=== PATIENT | female | born 1985 | race Caucasian/White ===

== ENCOUNTER 2018-06-28 08:33 | Emergency (ER) | payer SELFPAY ==
[~2018-06-28] VITALS: Ht 177.8 cm; Wt 79.4 kg
--- OUTSIDE RECORDS SUMMARY | ~2018-06-28 | XMS | Encounter Summary ---
Demographics + + + | Address | [address] | | | [address] | | | [place] [address] | + + + | Home Phone | | + + + | Preferred Language | Unknown | + + + | Marital Status | Unmarried Domestic Partner | + + + | Anabaptist Affiliation | NON | + + + | Race | White | + + + | Ethnic Group | Not or | + + + Author + + + | Author | [facility] [employer] [facility] | + + + | Organization | [facility] [employer] [facility] | + + + | Address | Unknown | + + + | Phone | Unavailable | + + + Support + + +---------+ + | Name | Relationship | Address | Phone | + + +---------+ + | Roque Headings | ECON | Unknown | | + + +---------+ + Care Team Providers + +------+ + | Care Dental Service Technician Name | Role | Phone | + +------+ + | No Pcp Per Patient | PCP | Unavailable | + +------+ + Reason for Visit Consultation (Routine) +--------+--------+ + + + + | Status | Reason | Specialty | Diagnoses / | Referred By | Referred To | | | | | Procedures | Contact | Contact | +--------+--------+ + + + + | Closed | | Occupational | Diagnoses | Sothern, | [facility] | | | | Therapy | TFCC | KISHA Bergeron | [address] | | | | | (triangular | [address] | [address] | | | | | fibrocartila | Ave | Mailcode: | | | | | ge complex) | [place], [place] | [facility] | | | | | tear, | [address] | for Health | | | | | unspecified | Phone: | and Healing, | | | | | laterality, | [phone] | 1st floor | | | | | subsequent | Fax: | [place], [place] | | | | | encounter | [phone] | [address] | | | | | Procedures | | Phone: | | | | | OCC HAND | | [phone] | | | | | THERAPY | | Fax: | | | | | REFERRAL IN | | [phone] | | | | | [facility] | | | +--------+--------+ + + + + Encounter Details +--------+---------+ + + + | Date | Type | Department | Care Team | Description | +--------+---------+ + + + | 04/01/ | Office | [facility] | Mirna Stevenson | Injury of triangular | | 2015 | Visit | Occupational Therapy | RYAN Gaytan [address] | fibrocartilage | | | | Services at [facility] | [address] | complex of left | | | | [facility] [address] | [place], [place] | wrist (Primary Dx) | | | | [address] Mailcode: | [address] | | | | | [address] for | | | | | | Health and Healing, | | | | | | 1st Floor [place], | | | | | | [place] [address] | | | | | | [phone] | | | +--------+---------+ + + + Social History + + + +--------+ + | Tobacco Use | Types | Packs/Day | Years | Date | | | | | Used | | + + + +--------+ + | Former Smoker | Cigarettes | 0.3 | 3 | Quit: 2008 | + + + +--------+ + + +---+---+---+ | Smokeless Tobacco: | | | | | Never Used | | | | + +---+---+---+ + + +---------+ + | Alcohol Use | Drinks/Week | oz/Week | Comments | + + +---------+ + | Yes | | | rare, on occasion | + + +---------+ + + + + | Sex Assigned at | Date Recorded | | | | + + + | Not on file | | + + + + + + + | Job Start Date | Occupation | Industry | + + + + | Not on file | Not on file | Not on file | + + + + + + + + | Travel History | Travel Start | Travel End | + + + + + + | No recent travel history available. | + + documented as of this encounter Patient Instructions Patient Instructions Mirna Stevenson, RYAN - 04/01/2014 10:39 AM PSTReturn to wearing Br shakir for sleeping. If aching not significantly better in 2-3 days. Add some day wear with brace also. When doing things around the house, going out. Etc. Of f when quiet, resting. Use your microwave pack for heat. Electronically signed by Mirna Stevenson OT at 2014 10:43 AM PST documented in this encounter Progress Notes Mirna Stevenson, RYAN - 04/01/2014 10:16 AM [id number] EMMA MOSQUEDA Date of : 1985 Start of care: 03/24/2014 Date of onset: 02/13/2014 Attending Surgeon: Christopher Benitez M.D. High Density Press Laborer(s): Eliseo Gil M.D. Preoperative Diagnosis(es): Left wrist pain and triangular fibrocartilaginous complex (TFCC ) injury Postoperative Diagnosis(es): Same Procedures Performed: 1. Left wrist arthroscopy, and debridement 2. Left triangular fibrocartilaginous complex (TFCC) arthroscopic repair. 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 (in the wrist) Also reports continued pain in lateral elbow, with popping when performing elbow flexion/ex t. Pain level 4/10. Objective: Elbow: (L) 3-145 degrees Reports occasional "catching at back of joint of elbow with fle ixon/ext, but not actively doing during session today. Has a red area (mild skin breakdown) at lateral elbow. And swollen and tender in this area as well, probably from cast. Pronation: 60 degrees Supination; 30 Wrist flexion: 30 Wrist ext: 38 Ulnar deviation: 15 Radial deviation: 10 Hand and wrist motion intact Because pt having more trouble sleeping and aching is constant. Will have her use brace for sleeping, and if not better in 2 days increase to some daytime wear as well. Paraffin dip for pain post treatment. Soft tissue work to ulnar wrist for pain and edema. Treatment Today: therapeutic exercise. 45 min Assessment: 1. Very tender at lateral elbow. 2. Lots of aching, so increased splint wear Plan: Monitor response to increased splint wear. (better sleeping, less aching) Measure AROM and progress as tolerated. Treatment began: 1015 Treatment ended: 1100 docusharmaine in thi s encounter Plan of Treatment Not on filedocumented as of this encounter Procedures + +--------+ + + + | Procedure Name | Priori | Date/Time | Associated Diagnosis | Comments | | | ty | | | | + +--------+ + + + | PA THERAPEUTIC | Routin | 04/01/2014 | Injury of | | | EXERCISES | e | 10:56 AM | triangular | | | | | PST | fibrocartilage | | | | | | complex of left | | | | | | wrist | | + +--------+ + + + documented in this encounter Visit Diagnoses + + | Diagnosis | + + | Injury of triangular fibrocartilage complex of left wrist - Primary | + + documented in this encounter
--- OUTSIDE RECORDS SUMMARY | ~2018-06-28 | XMS | Encounter Summary ---
Demographics + + + | Address | [address] | | | [address] | | | [place] [address] | + + + | Home Phone | | + + + | Preferred Language | Unknown | + + + | Marital Status | Unmarried Domestic Partner | + + + | Quaker Affiliation | NON | + + + | Race | White | + + + | Ethnic Group | Not or | + + + Author + + + | Author | [facility] [employer] [facility] | + + + | Organization | [facility] [employer] [facility] | + + + | Address | Unknown | + + + | Phone | Unavailable | + + + Support + + +---------+ + | Name | Relationship | Address | Phone | + + +---------+ + | Roque Headings | ECON | Unknown | | + + +---------+ + Care Team Providers + +------+ + | Care Regulatory Submissions Specialist Name | Role | Phone | + +------+ + | No Pcp Per Patient | PCP | Unavailable | + +------+ + Reason for Visit + + + | Reason | Comments | + + + | Did Not Attend | | | Outpatient | | | Appointment | | + + + Consultation (Routine) +--------+--------+ + + + + [...] | | | | ge complex) | [place], [place] | [facility] | | | | | tear, | [address] | for Health | | | | | unspecified | Phone: | and Healing, | | | | | laterality, | [phone] | 1st floor | | | | | subsequent | Fax: | [place], [place] | | | | | encounter | [phone] | [address] | | | | | Procedures | | Phone: | | | | | OCC HAND | | [phone] | | | | | THERAPY | | Fax: | | | | | REFERRAL IN | | [phone] | | | | | [facility] | | | +--------+--------+ + + + + Encounter Details +--------+---------+ + + + | Date | Type | Department | Care Team | Description | +--------+---------+ + + + | 04/10/ | Office | [facility] | Phyllis Gleason, | Injury of triangular | | 2015 | Visit | Occupational Therapy | OT [address] | fibrocartilage | | | | Services at [facility] | Ave [place], [place] | complex of left | | | | [facility] [address] | [address] | wrist (Primary Dx) | | | | [address] Mailcode: | | | | | | [facility] | | | | | | Health and Healing, | | | | | | [facility] floor | | | | | | [place], [place] | | | | | | [address] | | | | | | [phone] | | | +--------+---------+ + + + [...] + + documented as of this encounter Progress Notes Phyllis Gleason OT - 04/10/2014 9:47 AM PSTCalled patient as she was 15 minutes late fo r hand therapy appointment. She was in [place] visiting her mom and will not be able to ma ke it in today - apologized for the inconvenience and was reminded of the late cancel, no sh ow policy. She Is aware of her next visit with Mirna Gaytan on 04/14. documented in this encounter Plan of Treatment Not on filedocumented as of this encounter Visit Diagnoses + + | Diagnosis | + + | Injury of triangular fibrocartilage complex of left wrist - Primary | + + documented in this encounter"
--- OUTSIDE RECORDS SUMMARY | ~2018-06-28 | XMS | Encounter Summary ---
Demographics + + + | Address | [address] | | | [address] | | | [place] [address] | + + + | Home Phone [...] Author + + + | Author | [facility] [employer] [facility] | + + + | Organization | [facility] [employer] [facility] | + + + | Address | Unknown | + + + | Phone | Unavailable | + + + Support + + +---------+ + | Name | Relationship | Address | Phone | + + +---------+ + | Roque Headings | ECON | Unknown | | + + +---------+ + Care Team Providers + +------+ + | Care Clinical Trial Data Manager Name | Role | Phone | + +------+ + | No Pcp Per Patient | PCP | Unavailable | + +------+ + Reason for Visit AUTH/CERT +--------+--------+ + + + + | Status | Reason | Specialty | Diagnoses / | Referred By | Referred To | | | | | Procedures | Contact | Contact | +--------+--------+ + + + + | | | | | | | +--------+--------+ + + + + Encounter Details +--------+ + + + + | Date | Type | Department | Care Team | Description | +--------+ + + + + | 02/13/ | Hospital | [facility] | Christopher Benitez, | | | 2014 | Encounter | STAY [address] | [address] | | | | | [facility] | [address] | | | | | FOR [facility] AND | [place], [place] | | | | | HEALING [place], | [address] | | | | | [place] [address] | [phone] | | | | | [phone] | | | +--------+ + + + + Social History + + [...] + + documented as of this encounter Last Filed Vital Signs + + + + + | Vital Sign | Reading | Time Taken | Comments | + + + + + | Blood Pressure | 105/50 | 02/13/2014 10:30 AM | | | | | PST | | + + + + + | Pulse | 54 | 02/13/2014 10:30 AM | | | | | PST | | + + + + + | Temperature | 36.8 C (98.2 F) | 02/13/2014 9:57 AM | | | | | PST | | + + + + + | Respiratory Rate | 16 | 02/13/2014 10:30 AM | | | | | PST | | + + + + + | Oxygen Saturation | 99% | 02/13/2014 10:30 AM | | | | | PST | | + + + + + | Inhaled Oxygen | - | - | | | Concentration | | | | + + + + + | Weight | - | - | | + + + + + | Height | - | - | | + + + + + | Body Mass Index | - | - | | + + + + + documented in this encounter Discharge Instructions Instructions Trinh Arevalo - 02/13/2014 Nursing Discharge Instructions General discharge instructions for same-day procedure patients: Remember that you are under the influence of medication. Do not stay alone. A responsible person should be with you. Do not drive, drink alcohol or make important personal or business decision for 24 hours . Resume normal activity and return to work when advised by your Doctor. Pain Management: Your last oral pain medication was given at: 1015 one oxycodone Please follow your Doctor's instructions on the medication bottle. Do not take pain medication on an empty stomach, as this may cause nausea and vomiting. Do not drive or drink alcohol while on narcotic pain medication. If you received a Peripheral Nerve Block, please take pain medication when numbing begin s to wear off or when you go to bed. This will allow for pain coverage when your nerve bloc k wears off during the night. Diet: If you do not experience nausea or vomiting resume your regular diet. Eat lightly and av oid large, high fat or highly spiced meals for 24-48 hours. Constipation can be a side effect of narcotic pain medication. Take stool softeners, in crease dietary fiber and drink plenty of water to prevent this. Wound/Dressing/Drain Care: Change your dressing according to your Doctor's instructions. You may place a bandaid o n incisional site if needed. Change bandaid daily. Call your Doctor if there is excessive bleeding, redness, swelling or drainage at the o perative site. IV Site Care Instructions: Monitor IV site for pain, redness, swelling and/or drainage. If present, call your Doct or immediately. Minor redness and/;or tenderness may be treated with warm, moist compresses for 24-48 ho urs, If the area is still red and/or tender after this, notify your Doctor. Call 911 if you experience difficulty breathing or unusual shortness of breath. Additional Home Care Instructions: home care after hand surgery Follow up Appointment: As scheduled A very small number of patients may have trouble voiding (emptying your bladder) after anes thesia. If you were unable to void after surgery at the surgery center and greater than 8 h ours at home has passed, still unable to void you need to visit the Emergency room. After arriving home you may receive a patient satisfaction survey from "Zaynab Hanna". Jeb chand appreciate your feedback on the survey to help us provide excellent service to you and your families. documented in this encounter Medications at Time of Discharge + + + +---------+--------+ + | Medication | Sig | Dispensed | Refills | Start | End Date | | | | | | Date | | + + + +---------+--------+ + | MULTIVIT | Take by mouth once | | 0 | | | | &MINERALS/FERROUS | daily. | | | | | | FUM (MULTI VITAMIN | | | | | | | ORAL) | | | | | | + + + +---------+--------+ + | [place]-3 Fatty | Take by mouth once | | 0 | | | | Acids-Vitamin E | daily. | | | | | | (FISH OIL) 1,000 mg | | | | | | | oral capsule | | | | | | + + + +---------+--------+ + documented as of this encounter Plan of Treatment Not on filedocumented as of this encounter Procedures + +--------+ + + + | Procedure Name | Priori | Date/Time | Associated Diagnosis | Comments | | | ty | | | | + +--------+ + + + | PROCEDURE NOTE | Routin | 03/18/2015 | | Results for this | | | e | 4:23 PM | | procedure are in the | | | | PST | | results section. | + +--------+ + + + | COMPLEX | Electi | 02/13/2014 | Articular | | | ARTHROSCOPIC WRIST | ve | 8:40 AM | cartilage disorder, | | | AND TRIANULAR | Surgic | PST | forearm | | | FIBROCARTILAGE | al | | | | | REPAIR | | | | | + +--------+ + + + documented in this encounter Results PROCEDURE NOTE (03/18/2015 4:23 PM PST)documented in this encounter Visit Diagnoses Not on filedocumented in this encounter Administered Medications + +--------+ +------+------+------+ | Medication Order | MAR | Action | Dose | Rate | Site | | | Action | Date | | | | + +--------+ +------+------+------+ | oxyCODONE (immediate release) | Given | 02/13/19 | 5 mg | | | | (ROXICODONE) tablet 5-10 mg 5-10 | | 15 10:15 | | | | | mg, oral, EVERY 4 HOURS | | AM PST | | | | | NEEDED, Starting Sun02/13/14 at | | | | | | | 0957, Until Sun02/13/14 at 1709, | | | | | | | severe pain | | | | | | + +--------+ +------+------+------+ +---+---+ | | | +---+---+ documented in this encounter
--- OUTSIDE RECORDS SUMMARY | ~2018-06-28 | XMS | Encounter Summary ---
Demographics + + + | Address | [address] | | | [address] | | | [place] [address] | + + + | Home Phone | | + + + | Preferred Language | Unknown | + + + | Marital Status | Unmarried Domestic Partner | + + + | Congregational Affiliation | NON | + + + | Race | White | + + + | Ethnic Group | Not or | + + + Author + + + | Author | [facility] | + + + | Organization | [facility] | + + + | Address | Unknown | + + + | Phone | Unavailable | + + + Support + + +---------+ + | Name | Relationship | Address | Phone | + + +---------+ + | Roque Headings | ECON | Unknown | | + + +---------+ + Care Team Providers + +------+ + | Care Dobie Worker Name | Role | Phone | + +------+ + PCP | Unavailable | + +------+ + Encounter Details +--------+ + + + + | Date | Type | Department | Care Team | Description | +--------+ + + + + | 06/18/ | Hospital | Dermatopathology | | | | 2011 | Encounter | [address] | | | | | | Mail Code: CH16D | | | | | | [facility] | | | | | | and Healing, 5th | | | | | | floor [place], [place] | | | | | | [address] | | | | | | [phone] | | | +--------+ + + + + Social History + +-------+ +--------+------+ | Tobacco Use | Types | Packs/Day | Years | Date | | | | | Used | | + +-------+ +--------+------+ | Never Assessed | | | | | + +-------+ +--------+------+ + + + | Sex Assigned at [...] + + documented as of this encounter Plan of Treatment Not on filedocumented as of this encounter Procedures + +--------+ + + + | Procedure Name | Priori | Date/Time | Associated Diagnosis | Comments | | | ty | | | | + +--------+ + + + | DERMATOPATHOLOGY(WET | Routin | 06/19/2011 | | Results for this | | [facility]) | e | | | procedure are in the | | | | | | results section. | + +--------+ + + + documented in this encounter Results DERMATOPATHOLOGY(WET [facility]) (06/19/2011) + + + + + + | Component | Value | Ref Range | Performed | Pathologist | | | | | At | Signature | + + + + + + | DERMATOPATH | SOURCE OF SPECIMEN:A Mid | | [facility] | | | OLOGY(WET | upper back, shave | | DERMATOPATH | | | MNT) | biopsy CLINICAL | | OLOGY | | | | DESCRIPTION:R/o | | | | | | atypia/malignancy. | | | | | | GROSS | | | | | | DESCRIPTION:Received in | | | | | | formalin is a specimen | | | | | | labeled Foster, | | | | | | Emma:A: Specimen | | | | | | consists of an oval | | | | | | shave of red-white | | | | | | papular skin [id number].The | | | | | | surgical margin is | | | | | | inked green; the tissue | | | | | | is bisected, and | | | | | | entirelysubmitted in | | | | | | cassette A1. | | | | | | MICROSCOPIC | | | | | | DESCRIPTION:There is a | | | | | | moderately broad, not | | | | | | entirely symmetric, | | | | | | compound | | | | | | melanocyticneoplasm | | | | | | characterized by round | | | | | | to oval nests and single | | | | | | melanocytesdistributed | | | | | | primarily along the | | | | | | basal layer. Many of the | | | | | | melanocytic nucleiare | | | | | | mildly enlarged, a few | | | | | | are hyperchromatic, and | | | | | | many contain | | | | | | increasedamounts of | | | | | | amphophilic cytoplasm | | | | | | giving them a pagetoid | | | | | | appearance.Occasional | | | | | | nests and cords of | | | | | | melanocytes with smaller | | | | | | nuclei and lescytoplasm | | | | | | are present in the | | | | | | upper dermis where, in | | | | | | some areas, there is | | | | | | adense, band-like, | | | | | | lymphocytic | | | | | | infiltrate. 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 | | | | | | NOTE: The pagetoid | | | | | | epidermal melanocytic | | | | | | cytology and dense | | | | | | inflammationare unusual | | | | | | changes in this nevus, | | | | | | where some of the | | | | | | findings are similarto | | | | | | that seen in regressing | | | | | | / involuting nevi, such | | | | | | as HALO NEVUS. | | | | | | Thechanges remain | | | | | | unconventional, and | | | | | | given extension of the | | | | | | neoplasm to | | | | | | theperipheral margins, | | | | | | conservative re-excision | | | | | | is recommended. | | | | | | This case also reviewed | | | | | | with Dr. Don Kurtz | | | | | | Jr. Cindy | | | | | | [id number] My | | | | | | electronic signature | | | | | | indicates that I have | | | | | | personally reviewed | | | | | | alldiagnostic slides, | | | | | | the gross and/or | | | | | | microscopic portion of | | | | | | thisreport and | | | | | | formulated the final | | | | | | diagnosis. | | | | | | Rendering | | | | | | Diagnostician: Kamran | | | | | | Cindy | | | | | | FreddyPathologistElectroni | | | | | | ayesha Signed | | | | | | 06/23/2011 8:44AM | | | | + + + + + + + + | Specimen | + + | | + + + + + + + | Performing | Address | City/State/Zipcode | Phone Number | | Organization | | | | + + + + + | [facility] | Mailcode [address], [address] | [place] [address] | | | DERMATOPATHOLOGY | [address] | | | + + + + + documented in this encounter Visit Diagnoses Not on filedocumented in this encounter"
--- OUTSIDE RECORDS SUMMARY | ~2018-06-28 | XMS | Encounter Summary ---
Demographics + + + | Address | [address] | | | [address] | | | [place] [address] | + + + | Home Phone | | + + + | Preferred Language | Unknown | + + + | Marital Status | Unmarried Domestic Partner | + + + | Baptism Affiliation | NON | + + + | Race | White | + + + | Ethnic Group | Not or | + + + Author + + + | Author | [facility] | + + + | Organization | [facility] | + + + | Address | Unknown | + + + | Phone | Unavailable | + + + Support + + +---------+ + | Name | Relationship | Address | Phone | + + +---------+ + | Roque Headings | ECON | Unknown | | + + +---------+ + Care Team Providers + +------+ + | Care Shale Miner Name | Role | Phone | + +------+ + | No Pcp Per Patient | PCP | Unavailable | + +------+ + Encounter Details +--------+ + + + + | Date | Type | Department | Care Team | Description | +--------+ + + + + | 05/01/ | Telephone | Orthopaedics at | Christopher Benitez, | | | 2014 | | [facility] [address] | [address] | | | | | [address] | [facility] | | | | | [facility] [address] | [place], [place] | | | | | [place] | [address] | | | | | [address] | [phone] | | | | | [phone] | | | +--------+ + + + [...] filedocumented as of this encounter Visit Diagnoses Not on filedocumented in this encounter"
--- OUTSIDE RECORDS SUMMARY | ~2018-06-28 | XMS | Encounter Summary ---
Demographics + + + | Address | [address] | | | [address] | | | [place] [address] | + + + | Home Phone | | + + + | Preferred Language | Unknown | + + + | Marital Status | Unmarried Domestic Partner | + + + | Yazdanism Affiliation | NON | + + + | Race | White | + + + | Ethnic Group | Not or | + + + Author + + + | Author | [facility] | + + + | Organization | [facility] | + + + | Address | Unknown | + + + | Phone | Unavailable | + + + Support + + +---------+ + | Name | Relationship | Address | Phone | + + +---------+ + | Roque Headings | ECON | Unknown | | + + +---------+ + Care Team Providers + +------+ + | Care Pot Sander Name | Role | Phone | + +------+ + | No Pcp Per Patient | PCP | Unavailable | + +------+ + Reason for Visit + + + | Reason | Comments | + + + | Pre-operative | LEFT WRIST ARTHROSCOPY, TRIANGULAR FIBROCARTILAGE | | evaluation | REPAIR/DEBRIDEMENT, 02/13/2014, Christopher Benitez MD | + + + Encounter Details +--------+---------+ + + + | Date | Type | Department | Care Team | Description | +--------+---------+ + + + | 02/03/ | Office | Preoperative | Lynn Barron, | Preoperative | | 2013 | Visit | Medicine Clinic at | [facility] [address] | examination (Primary | | | | [facility] 4th Floor [address] [place], [place] | Dx); Articular | | | | [address] Mail | [address] | cartilage disorder, | | | | Code: [facility] | [phone] | forearm | | | | for Health and | | | | | | Healing,4th Floor | | | | | | [place], [place] | | | | | | [address] | | | | | | [phone] | | | +--------+---------+ + + + Anesthesia Record + + + + + | Procedure Name | Responsible | Anesthesia Start | Anesthesia Stop Time | | | Anesthesiologist | Time | | + + + + + | COMPLEX | Tobin Ospina, | 02/13/14 0744 | 02/13/14 0959 | | ARTHROSCOPIC WRIST | MD | | | | AND TRIANULAR | | | | | FIBROCARTILAGE | | | | | REPAIR (Left Other) | | | | + + + + + +----+---+ + + | Da | T | Event | Comment | | te | i | | | | | m | | | | | e | | | +----+---+ + + | 01 | 0 | Eq Check | Anesthesia machine checked Equipment verified | | /0 | 7 | | | | 2/ | 3 | | | | 20 | 8 | | | | 15 | | | | +----+---+ + + | | 0 | Pt. Check | Prior to anesthesia start, pt. Identified, examined, chart | | | 7 | | reviewed, PARQ held, anesthetic plan made or approved by | | | 4 | | attending anesthesiologist. NPO status confirmed as appropriate | | | 1 | | for procedure Preoperative evaluation: unchanged | +----+---+ + + | | 0 | Preprocedur | Pt ID confirmed, informed consent obtained, insertion site | | | 7 | e Checklist | marked, equipment available | | | 4 | | | | | 2 | | | +----+---+ + + | | 0 | An Start | | | | 7 | | | | | 4 | | | | | 4 | | | +----+---+ + + | | 0 | Start PNB | | | | 7 | SS | | | | 5 | | | | | 1 | | | +----+---+ + + | | 0 | PNB SS Stop | | | | 8 | | | | | 2 | | | | | 2 | | | +----+---+ + + | | 0 | Eq Check | Anesthesia machine checked Equipment verified | | | 8 | | | | | 3 | | | | | 1 | | | +----+---+ + + | | 0 | An Start | | | | 8 | Data | | | | 4 | | | | | 0 | | | +----+---+ + + | | 0 | Quick Note | Nasal canula applied | | | 8 | | | | | 4 | | | | | 1 | | | +----+---+ + + | | 0 | Vitals | Monitors applied Vital signs checked Patient ready for anesthesia | | | 8 | Checked | | | | 4 | | | | | 5 | | | +----+---+ + + | | 0 | Quick Note | o2 mask appied | | | 8 | | | | | 4 | | | | | 8 | | | +----+---+ + + | | 0 | Ready | | | | 8 | | | | | 4 | | | | | 8 | | | +----+---+ + + | | 0 | Abx | | | | 8 | Administere | | | | 5 | d | | | | 0 | | | +----+---+ + + | | 0 | An Tourn | | | | 8 | Inflated | | | | 5 | | | | | 5 | | | +----+---+ + + | | 0 | Incision | | | | 9 | | | | | 0 | | | | | 2 | | | +----+---+ + + | | 0 | An Tourn | | | | 9 | Deflated | | | | 4 | | | | | 1 | | | +----+---+ + + | | 0 | Surgery end | | | | 9 | | | | | 5 | | | | | 1 | | | +----+---+ + + | | 0 | an sofy now | | | | 9 | | | | | 5 | | | | | 5 | | | +----+---+ + + | | 0 | an stop | | | | 9 | data | | | | 5 | | | | | 5 | | | +----+---+ + + | | 0 | Anesthesia | | | | 9 | End | | | | 5 | | | | | 9 | | | +----+---+ + + +------+ | Meds | +------+ + + + No medications | on file. | + + + + + | No agents on file. | + + + + | No blood administrations on file. | + + +--------+ + + + | Type | Details | Placement | Removal | +--------+ + + + | RETIRE | 02/13/14; surgical site; No; | 02/13/14 0000 by Jam | 02/13/14 1100 by | | D - | Left:; wrist; 02/13/14; 1100 | [facility] | Trinh Arevalo | | Incisi | | | | | on | | | | +--------+ + + + | RETIRE | 02/13/14; (pre op); 02/13/14; | 02/13/14 0000 by | 02/13/14 1100 by | | D - | 1100; #1 LR 1000cc; 20; Right; | Trinh Mickey | Trinh Mickey | | Periph | Hand; Positive | | | | eral | | | | | Line | | | | +--------+ + + + documented in this encounter Social History + + + +--------+ + [...] + + + | Blood Pressure | 123/67 | 02/03/2014 9:45 AM | | | | | PST | | + + + + + | Pulse | 59 | 02/03/2014 9:45 AM | | | | | PST | | + + + + + | Temperature | 36.9 C (98.4 F) | 02/03/2014 9:45 AM | | | | | PST | | + + + + + | Respiratory Rate | 14 | 02/03/2014 9:45 AM | | | | | PST | | + + + + + | Oxygen Saturation | 96% | 02/03/2014 9:45 AM | | | | | PST | | + + + + + | Inhaled Oxygen | - | - | | | Concentration | | | | + + + + + | Weight | 80.3 kg (177 lb) | 02/03/2014 9:45 AM | neck 36cm | | | | PST | | + + + + + | Height | 177.8 cm (5' 10") | 02/03/2014 9:45 AM | | | | | PST | | + + + + + | Body Mass Index | 25.4 | 02/03/2014 9:45 AM | | | | | PST | | + + + + + documented in this encounter Patient Instructions Patient Instructions Lynn Barron, [facility] - 02/03/2014 9:49 AM PST PREOPERATIVE INSTRUCTIONS Surgery Check in Time: The Preoperative Medicine Clinic is not in the position to give you accurate information regarding surgical check in time. We refer you back to your surgical office regarding this important information. In addition, If you have questions or concerns specific to surgery, call your surgeon's office. If it is after office hours or you do not have a contact number for your surgeon, call the [facility] die machine operator at [phone] and ask to be transferred to their office. Empty stomach before surgery On the day BEFORE your surgery, drink plenty of fluids and stay well hydrated, unless yo u are on a fluid restricted diet. NOTHING to eat or drink after midnight the night before surgery. This includes NO food , water, coffee, candy, mints, gum. Medications Instructions Do not take vitamins, stool softeners or laxatives on the day of surgery. They are more likely to irritate your stomach than to be of benefit. If you use a CPAP or BIPAP please bring it with you to the hospital. If you have any questions or concerns about your medications, please do not hesitate to call me at the number listed above, M-F 8-5pm. Unless otherwise directed by your surgeon, do not take any Aspirin, fish oil, vitamin E or non-steroidal anti-inflammatory (NSAIDs i.e. Advil, Aleve, Ibuprofen) or herbal supplemen ts 7 days prior to your surgery. These drugs may interfere with normal blood clotting and ma y cause excessive bleeding and bruising during or after the surgery. If you are taking Coumadin (warfarin), Plavix or any other blood thinners please let you r surgical team know as medication changes may be necessary. If you need a pain medication for general purposes, use Tylenol as directed. OK to take it even on the morning of surgery, if needed. If you are in doubt about any medications that you are taking, please contact our office .Skin preparation to help avoid surgical site infections HIBICLENS GUIDE TO GENERAL SKIN CLEANSING AT HOME BEFORE SURGERY Before you bathe or shower: Test 1 drop for 1-2 minutes on your skin. If redness, swelling or itching occurs, do not use Hibiclens and let your surgical team know that you are allergic to this topical medicati on. Read the instructions given to you by your healthcare practitioner, and begin your genera l skin cleansing protocol as directed. Carefully read all directions on the product label. Hibiclens is not to be used on the head or face, keep out of the eyes, ears and mouth. Hibiclens is not to be used in the genital area. Hibiclens should not be used if you are allergic to chlorhexidine gluconate or any other ingredients in this preparation. *See Hibiclens label for full product information and precautions. When you bathe or shower the night before your surgery: If you plan to wash your hair, do so with your regular shampoo. Then rinse hair and body thoroughly to remove any shampoo residue. Wash your face with your regular soap or water only. Thoroughly rinse your body with warm water from neck down. Use Hibiclens as you would any other liquid soap. Please do not put the Hibiclens on a wa sh cloth, apply directly to the skin and wash gently. Apply the minimum amount of Hibiclens necessary to cover the skin. Leave the Hibiclens on your skin for 1 minute, then rinse off. Rinse thoroughly with warm water. Do not use your regular soap after applying and rinsing Hibiclens. When using Hibiclens for a second day in a row (morning of surgery, as soon as you wake up) : Shower/bathe again using Hibiclens in the same method as described above. Do not apply any lotions, deodorants, powders or perfumes to the body areas that have been cleaned with Hibiclens.Other Important Guidelines Do not shave the surgical area Do not smoke, drink alcohol or use recreational drugs f or 24 hours before your surgery Watch for any change in your health condition. Let your surgeon know right away if you do not feel well. Do not wear makeup, perfume, lotions, deodorant, powder or hairspray. Do not wear any jewelry to the hospital. Wear loose, comfortable clothing. Leave all your valuables at home. If you bring anything with you to the hospital, there is not room to store it. A loved o ne or friend will need to hold onto it for you. Allow enough travel time so you re not late for your check in for surgery. Take a bath or shower and remember to shampoo your hair using your usual hair product bef ore your arrival at the hospital. Please remember to brush your teeth the night before and the morning of your procedure. Surgery Check in Locations [facility], fourth floor Going Home Your surgical team will decide when you are medically ready to go home. If you are released to go home on the same day as your procedure/surgery please note the following: You will not be able to drive. You will be required to have a competent person drive you or accompany you by taxi or pu blic transportation on the day of discharge. It is also required that you have a competent person assist you and look after you on th e first night after you have undergone regional blocks (72 hours for patients going home wit h regional block pump), deep sedation, and/or general anesthesia. documented in this encounter Progress Notes Lynn Barron FNP - 02/03/2014 10:04 AM PST PREOPERATIVE CONSULT NOTE Consulting Provider: LYNN BARRON NP Referring Physician: Christopher Benitez MD Primary Care Provider: No Pcp Per PATIENT Reason for Consult: Preoperative evaluation and risk assessment Proposed Procedure/Date: LEFT WRIST ARTHROSCOPY, TRIANGULAR FIBROCARTILAGE REPAIR/DEBRIDEME NT, 02/13/2014 HISTORY OF PRESENT ILLNESS: Emma Mosqueda is a 28 y.o. female here for preoperative e valuation for above procedure. 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 She notes some days are intolerable and even pu shing open a door is painful. Patient notes nothing helps to improve it. Medical history otherwise insignificant. Functional capacity is High. ROS: Pulmonary: Within Defined Limits except as noted below no cough no rhinorrhea no sputum no URI no shortness of breath no stridor no wheezing Pt. Has no asthma no COPD No dx of sleep apnea Risks factors for no sleep apnea: Cardiovascular: Can walk up two flights of stairs without difficulty. Exercises approximately daily sometimes twice per day-she lifts weights and does [employer] as well. Tolerates regular exercise. She is very physically active. Denies dizziness, syncope, shortness of breath, chest pain or pressure or an increase in th vashti symptoms with exercise. Denies orthopnea, PND, or peripheral edema. Within Defined Limits except as noted below Functional Capacity: Moderate - cyanosis, dyspnea on exertion, PND, palpitations, PVD, chest pressure and syncope no CAD no CHF no hypertension no valvular problems/murmurs Other CV: no OTHER CARDIAC SYMPTOMS No congeni rosemarie heart disease Vascular: no VASCULAR SYMPTOMS no pacemaker GI/Hepatic: Within Defined Limits except as noted below no GI Bleed no GERD No liver diseas e no hepatitis : Patient denies urinary tract or kidney problems. 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 ) Current Pain Level: Current pain level: 5 MS: Can lay flat without difficulty. Within Defined Limits except as noted below no arthritis no Other MS, Heme/Onc: Within Defined Limits except as noted below Pt. has: no active bleeding no Bleedi ng diathesis / thrombotic bleeding Previous Transfusions: no transfusion hx Hx: no other hem e, Malignancy: no cancer, Location: Metastasis: Skin: Within Defined Limits except as noted below No open wounds or sores No hx MRSA/VRE/Ac tive skin infection Current Medication List Name Sig MULTI VITAMIN ORAL Take by mouth once daily. OMEGA-3 FATTY ACIDS-VITAMIN E 1,000 MG CAPSULE Take by mouth once daily. Allergies Allergen Reactions Sulfa (Sulfonamide Antibiotics) Rash Past Medical History Diagnosis Date No pertinent past medical history Past Surgical History Procedure Date Orif, fracture, hand, left 2012 Release, ligament 2012 removal of hardware as well Tonsillectomy as a child Knee arthroscopy 1999 Family History Problem Relation Alcohol/Drug Neg Hx Anesthesia Neg Hx Arthritis Neg Hx Cancer Neg Hx Diabetes Neg Hx Heart Disease Neg Hx Hypertension Neg Hx Stroke Neg Hx Thyroid Neg Hx History Substance Use Topics Smoking status: Former Smoker -- 0.30 packs/day for 3 years Types: Cigarettes Quit date: 2008 Smokeless tobacco: Never Used Alcohol Use: Yes Comment: rare, on occasion PHYSICAL EXAM: Last Vitals: BP 123/67 | Pulse 59 | Temp (Src) 36.9 C (98.4 F) (Oral) | RR 14 | Ht 1.77 8 m (5' 10") | Wt 80.287 kg (177 lb) | SpO2 96% | LMP 12/18/2013 | BMI 25.4 kg/(m^2) Body ma ss index is 25.4 kg/(m^2). General: Patients general appearance: Healthy, Alert, No distress, Cooperative and Age appr opriate Head & Neck/Airway: Normocephalic; atraumatic; PERRL; EOMI; nl appearing ears and nose. Nec k ROM: full Neck Circumference: 36 cm. TM Distance:Normal Dentition: dentition is normal Dental risk discussed with/pt : Yes Denti tion Comments: Nothing removable. [place]: No Mallampati: II Mouth Opening: > = 3 cm C-Spine: normal Neck Anatomy: Normal Jaw Protrusion: Normal, lower incisors can protrude past upper i ncisors Lung Exam: No respiratory distress. Normal breathing pattern. breath sounds normal no Respi ration Cardiac: No murmurs, gallops or rubs. Rhythm: regular Rate: normal murmur, friction rub, sy stolic click, carotid bruit, JVD, peripheral edema and weak pulses Abdominal: General Findings: Deferred obesity and scaphoid abdomen Bowel Sounds: bowel soun ds are normal Musculoskeletal: Findings: tone normal Neuro/Psych: No focal neuro deficits; Alert and appropriate; nl affect. alert Findings: No tremor, Alert, oriented to person, place, time, Normal affect and Normal gait and station Integument: No open rashes or lesions noted. - lesion, rash and open wounds Color: pink Texture: Skin texture - normal Turgor: turgor normal Implants: None, LAB DATA REVIEWED/ORDERED Not indicated. EKG: not indicated, no cardiac symptoms or risk factors, <64 years of age, moderate functio nal capacity. MEDICAL DECISION MAKIN ACC/ AHA Perioperative Guidelines1. Need for emergency noncardiac surgery? b. No -> Proceed to next step. 2. Active Cardiac Conditions? These conditions mandate further investigation and manageme nt. A. Acute VT within 7 days: no B. Unstable angina/Recent VT (7- 30 days): no C. Decompensated CHF: no D. Significant arrhythmia: None E. Severe valvular disease: NONE 3. Low risk surgery? b. No -> proceed with next step. 4. Good functional capacity? MET ASSESSMENT: 10. METS--ride bicycle up a hill, job 6 mph. 5. Assess Clinical Risk Factors? A. Ischemic heart disease: no B. Compensated / prior heart failure: no C. Diabetes mellitus (treated with insulin): no D. Renal insufficiency (Cr > 2): no E. Cerebrovascular disease: no Rate of cardiac , non fatal VT, non fatal cardiac arrest (RCRI) 0 risk factors - 0.4% 1 risk factors - 1%, 2 risk factors - 7%, 3 or >risk factors - 11% (may benefit from perioperative beta blockers)Risk Factor Recommen dations: 0 risk factors- proceed with planned surgery Surgery Risk: Low to intermediate Patient-related risk: Estimated ASA class -- 1 ASSESSMENT and RECOMMENDATIONS: Surgical/anesthesia risk assessment: Emma Mosqueda is a 28 y.o. female with diagno sis as above. According to ACC/AHA, this patient has zero clinical risk factors and the rec ommendation is to proceed with planned surgery without additional cardiac testing. Medication management recommendations: The patient was advised to continue all usual med ications except as noted in Patient Instructions (After Visit Summary given to pt) Perioperative antibiotic prophylaxis: Standard (Consider IV Vanco one hr before procedu re in pts with Cephalosporin/PCN allergy and/or with hx of MRSA) This patient appears medically stable for surgery. Thank you for the opportunity to contribute to this patient's care. LYNN BARRON NP [facility] AT [facility] 4TH FLOOR [address] [facility] [address] Part of the time was spent counseling the patient regarding perioperative risk assessment ( cardiac, bleeding, surgical site infection, etc) and methods to avoid post op complications including respiratory failure/hospital acquired pneumonia and DVT. The patient was also adv ised regarding NPO requirement, hydration before surgery, showering, general body hygiene. All pre-procedure instructions given to the patient. All of patient's questions answered an d clarified. Patient verbalized understanding of the instructions given.Electronically sign ed by DARA Larry at 02/03/2014 10:07 AM PSTdocumented in this encounter Plan of Treatment Not on filedocumented as of this encounter Visit Diagnoses + + | Diagnosis | + + | Preoperative examination - Primary Preoperative examination, unspecified | + + | Articular cartilage disorder, forearm Articular cartilage disorder, forearm | + + documented in this encounter
--- OUTSIDE RECORDS SUMMARY | ~2018-06-28 | XMS | Encounter Summary ---
Demographics + + + | Address | [address] | | | [address] | | | [place] [address] | + + + | Home Phone | | + + + | Preferred Language | Unknown | + + + | Marital Status | Unmarried Domestic Partner | + + + | Hoahaoism Affiliation | NON | + + + | Race | White | + + + | Ethnic Group | Not or | + + + Author + + + | Author | [facility] [employer] [facility] | + + + | Organization | [facility] [employer] [facility] | + + + | Address | Unknown | + + + | Phone | Unavailable | + + + Support + + +---------+ + | Name | Relationship | Address | Phone | + + +---------+ + | Roque Headings | ECON | Unknown | | + + +---------+ + Care Team Providers + +------+ + | Care Roller Inspector And Mender Name | Role | Phone | + +------+ + | No Pcp Per Patient | PCP | Unavailable | + +------+ + Reason for Referral PROC - Outpatient Surgery (Routine) +--------+--------+ + + + + | Status | Reason | Specialty | Diagnoses / | Referred By | Referred To | | | | | Procedures | Contact | Contact | +--------+--------+ + + + + | Closed | | Orthopedics | Diagnoses | No | Mirarchi, | | | | | Articular | Referring | Christopher Singh MD | | | | | cartilage | Provider Per | [address] | | | | | disorder, | Patient NO | [address] | | | | | forearm | REFERRING | Orion Roa | | | | | Procedures | PROVIDER PER | [place] | | | | | REQUEST TO | [place] | [address] | | | | | SURGERY | | Phone: | | | | | [employer] B[employer] ASSEMBLER | | [phone] | | | | | [place] [facility] | | Fax: | | | | | ARTHROSCOP,E | | [phone] | | | | | XCIS TRIANG | | | | | | | CART | | | +--------+--------+ + + + + Reason for Visit + + + | Reason | Comments | + + + | Hand Pain | MRI f/u | + + + Office Visit - E/M Services (Routine) +--------+--------+ + + + + | Status | Reason | Specialty | Diagnoses / | Referred By | Referred To | | | | | Procedures | Contact | Contact | +--------+--------+ + + + + | Closed | | Orthopedics | Diagnoses | No | Eli, | | | | | left hand | Referring | Christopher Singh MD | | | | | pain post | Provider Per | [address] | | | | | spiral fx sx | Patient NO | [address] | | | | | | REFERRING | Orion Roa | | | | | | PROVIDER PER | [place] | | | | | | [place] | [address] | | | | | | | Phone: | | | | | | | [phone] | | | | | | | Fax: | | | | | | | [phone] | +--------+--------+ + + + + Encounter Details +--------+---------+ + + + | Date | Type | Department | Care Team | Description | +--------+---------+ + + + | 12/30/ | Office | Orthopaedics at | Christopher Benitez, | Disorder of ligament | | 2013 | Visit | [facility] [address] | [address] [facility] | of left wrist | | | | REGIN[address] Rubalcava | [address] | (Primary Dx) | | | | [facility] [address] | [place], [place] | | | | | [place], [place] | [address] | | | | | [address] | [phone] | | | | | [phone] | | | +--------+---------+ + + + Social History + +-------+ +--------+ + | Tobacco Use | Types | Packs/Day | Years | Date | | | | | Used | | + +-------+ +--------+ + | Former Smoker | | | | Quit: 2008 | + +-------+ +--------+ + + +---+---+---+ | Smokeless Tobacco: | | | | | Never Used | | | | + +---+---+---+ + + +---------+ + | Alcohol Use | Drinks/Week | oz/Week | Comments | + + +---------+ + | No | | | | + + +---------+ + + + [...] + + + | Blood Pressure | - | - | | + + + + + | Pulse | - | - | | + + + + + | Temperature | - | - | | + + + + + | Respiratory Rate | - | - | | + + + + + | Oxygen Saturation | - | - | | + + + + + | Inhaled Oxygen | - | - | | | Concentration | | | | + + + + + | Weight | 74.8 kg (165 lb) | 12/30/2013 9:29 AM | | | | | PST | | + + + + + | Height | 177.8 cm (5' 10") | 12/30/2013 9:29 AM | | | | | PST | | + + + + + | Body Mass Index | 23.68 | 12/30/2013 9:29 AM | | | | | PST | | + + + + + documented in this encounter Progress Notes Christopher Benitez MD - 12/30/2013 10:20 AM PSTFormatting of this note might be different fr om the original. Chief Complaint: Left wrist pain History of Present Illness: Emma Mosqueda is a 28 y.o. LHD female. She is here for follow-up after her MRI on her left wrist. She is still having significant pain and occasion al swelling on the dorsum of her wrist. 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 Work Related Injury/Workers Comp: no Filed Vitals: 12/30/2013 9:29 AM Height: 1.778 m (5' 10") Weight: 74.844 kg (165 lb) PainSc: 04 - Moderate PainLoc: Hand (Left) BMI: 23.68 kg/(m^2) Past Medical History Diagnosis Date No pertinent past medical history Past Surgical History Procedure Laterality Date Orif, fracture, hand, left 2012 Release, ligament 2012 Current Outpatient Prescriptions on File Prior to Visit Medication Sig Dispense Refill ACETAMINOPHEN-CODEINE 120-12 mg/5 mL oral solution AMOXICILLIN 500 mg oral capsule AMOXICILLIN-CLAVULANATE 875-125 mg oral tablet BENZONATATE 100 mg oral capsule [place]-3 Fatty Acids-Vitamin E (FISH OIL) 1,000 mg oral capsule Take by mouth. No current facility-administered medications on file prior to visit. Allergies Allergen Reactions Sulfa (Sulfonamide Antibiotics) Rash Fam: Non-contributory History Social History Marital Status: Unmarried Domestic Partner Spouse Name: N/A Number of Children: N/A Years of Education: N/A Occupational History Not on file. Social History Main Topics Smoking status: Former Smoker Quit date: 2008 Smokeless tobacco: Never Used Alcohol Use: No Drug Use: No Sexual Activity: Not on file Other Topics Concern Not on file Social History Narrative No narrative on file REVIEW OF SYSTEMS: Intake form was reviewed and pertinent positives are listed on this for m PHYSICAL EXAMINATION: Well developed, well nourished female Appears stated age Patient sitting comfortably, no acute distress Awake, alert, oriented x 3, interactive and appropriate NCAT, PERRL Neck demonstates full ROM without pain Skin demonstrates no erythema, cellulitis, rashes, or streaking except as noted below No peripheral edema in bilateral lower extremities except where noted below +2 radial and ulnar pulses at wrist, regular pulse < 2 sec cap refill at fingertips bilaterally Median, ulnar, radial dermatomes intact to light touch bilaterally except where noted below Moves all extremities easily bilaterally except where noted below ROM of the elbow hand, wrist, and fingers is full bilaterally except where noted below Left hand well healed scar over dorsum of left hand. 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 I will get an MRI to evaluate this and acsey ve her return with the images. We discussed both surgical and non-operative management options. She has elected to pursue an arthroscopic debridement and possible TFCC repair. A PARQ session was held where I discussed the risks, benefits, and alternatives to this fabiola stone. The patient was informed that the risks include but are not limited to , bleeding , infection, damage to nerves, vessels, bone, tendons, cartilage, muscle, post operative sti ffness, there may be need for further surgery, and that no surgery has a guarantee. The shane ent had an opportunity to have their questions answered to help understand the procedure and postoperative course. Consent for the surgical procedure was signed. documented in this e ncounter Plan of Treatment Not on filedocumented as of this encounter Visit Diagnoses + + | Diagnosis | + + | Disorder of ligament of left wrist - Primary Laxity of ligament | + + documented in this encounter
--- OUTSIDE RECORDS SUMMARY | ~2018-06-28 | XMS | Encounter Summary ---
Demographics + + + | Address | [address] | | | [address] | | | [place] [address] | + + + | Home Phone | | + + + | Preferred Language | Unknown | + + + | Marital Status | Unmarried Domestic Partner | + + + | Congregation Affiliation | NON | + + + | Race | White | + + + | Ethnic Group | Not or | + + + Author + + + | Author | [facility] [employer] [facility] | + + + | Organization | [facility] [employer] [facility] | + + + | Address | Unknown | + + + | Phone | Unavailable | + + + Support + + +---------+ + | Name | Relationship | Address | Phone | + + +---------+ + | Roque Headings | ECON | Unknown | | + + +---------+ + Care Team Providers + +------+ + | Care Tar Pot Man Name | Role | Phone | + [...] + + + + | 02/13/ | Anesthesia | [facility] | [facility], | | | 2014 | Event | [facility] | MD | | | | | and Healing Surgery | | | | | | Center Admitting | | | | | | Desk Located on the | | | | | | 4th floor [address] | | | | | | [address] [place], | | | | | | [place] [address] | | | +--------+ + + + + Anesthesia Record + + [...] | Meds | +------+ + + + | Name | Total | + + + | midazolam | 3 mg | + + + | ropivacaine 0.5 % | 30 mL | + + + | acetaminophen PO | 975 mg | + + + | celecoxib | 400 mg | + + + | ceFAZolin (ANCEF) injection 1 g | 1 g | + + + | fentaNYL | 50 mcg | + + + | lidocaine 2% | 60 mg | + + + | propofol INF | 482,000 mcg | + + + | propofol | 30 mg | + + + | lactated ringers IV | 600 mL | + + + + + | Name | + + | O2 Flow Rate (Total Liters) | + + + + | No [...] #1 LR 1000cc; 20; Right; | Trinh Arevalo | Trinh Arevalo | | Periph | Hand; Positive | [...] in this encounter Administered Medications + +--------+ +--------+------+------+ | Medication Order | MAR | Action | Dose | Rate | Site | | | Action | Date | | | | + +--------+ +--------+------+------+ | acetaminophen (TYLENOL) tablet | Given | 02/13/19 | 975 mg | | | | INTRAPROCEDURE PRN, Starting Fri | | 15 7:44 | | | | | 02/13/14 at 0744, Until 02/13/14 | | AM PST | | | | | at 0955 | | | | | | + +--------+ +--------+------+------+ +---+---+ | | | +---+---+ + +-------+ +-----+---+---+ | ceFAZolin (ANCEF) injection 1 g | Given | 02/13/19 | 1 g | | | | 1 g, intravenous, PREPROCEDURE | | 15 8:50 | | | | | ONCE, 1 dose, Starting 02/13/14 | | AM PST | | | | | at 0705, Until 02/13/14 at | | | | | | | 0850 | | | | | | + +-------+ +-----+---+---+ +---+---+ | | | +---+---+ + +-------+ +--------+---+---+ | celecoxib (CELEBREX) capsule | Given | 02/13/19 | 400 mg | | | | INTRAPROCEDURE PRN, Starting Fri | | 15 7:44 | | | | | 15 at 0744, Until 02/13/14 | | AM PST | | | | | at 0955 | | | | | | + +-------+ +--------+---+---+ +---+---+ | | | +---+---+ + +-------+ +--------+---+---+ | fentaNYL citrate (PF) | Given | 02/13/19 | 50 mcg | | | | (SUBLIMAZE) injection | | 15 8:46 | | | | | INTRAPROCEDURE PRN, Starting Fri | | AM PST | | | | | 02/13/14 at 0846, Until 02/13/14 | | | | | | | at 0955, sedation | | | | | | + +-------+ +--------+---+---+ +---+---+ | | | +---+---+ + + + +---+---+---+ | lactated ringers IV 10 mL/hr, | given by | 02/13/19 | | | | | intravenous, PROCEDURE | | 15 9:57 | | | | | CONTINUOUS, Starting 02/13/14 | anesthes | AM PST | | | | | at 0715, Until 02/13/14 at 1709 | iology | | | | | + + + +---+---+---+ + + +---+---+---+ | given by anesthesiology | 02/13/19 | | | | | | 15 9:26 | | | | | | AM PST | | | | + + +---+---+---+ | given by anesthesiology | 02/13/19 | | | | | | 15 8:57 | | | | | | AM PST | | | | + + +---+---+---+ +---+---+ | | | +---+---+ + +-------+ +-------+---+---+ | lidocaine PF (XYLOCAINE MPF) 20 | Given | 02/13/19 | 60 mg | | | | mg/mL (2 %) injection | | 15 8:44 | | | | | INTRAPROCEDURE PRN, Starting Fri | | AM PST | | | | | 02/13/14 at 0844, Until 02/13/14 | | | | | | | at 0955 | | | | | | + +-------+ +-------+---+---+ +---+---+ | | | +---+---+ + +-------+ +------+---+---+ | midazolam (VERSED) injection | Given | 02/13/19 | 2 mg | | | | INTRAPROCEDURE PRN, Starting Fri | | 15 8:39 | | | | | 02/13/14 at 0811, Until 02/13/14 | | AM PST | | | | | at 0955, sedation | | | | | | + +-------+ +------+---+---+ +-------+ +------+---+---+ | Given | 02/13/19 | 1 mg | | | | | 15 8:00 | | | | | | AM PST | | | | +-------+ +------+---+---+ +---+---+ | | | +---+---+ + + + + + +---+ | propofol (DIPRIVAN) injection | Rate/Dos | 02/13/19 | 75 | 36 mL/hr | | | INTRAPROCEDURE CONTINUOUS PRN, | e Change | 15 9:00 | mcg/kg/m | | | | Starting 02/13/14 at 0844, | | AM PST | in | | | | Until 02/13/14 at 0955 | | | | | | + + + + + +---+ +---------+ + + +---+ | New Bag | 02/13/19 | 100 | 48 mL/hr | | | | 15 8:44 | mcg/kg/m | | | | | AM PST | in | | | +---------+ + + +---+ +---+---+ | | | +---+---+ + +-------+ +-------+---+---+ | propofol INTRAPROCEDURE PRN, | Given | 02/13/19 | 30 mg | | | | Starting Sun02/13/14 at 0846, | | 15 8:46 | | | | | Until 02/13/14 at 0955 | | AM PST | | | | + +-------+ +-------+---+---+ +---+---+ | | | +---+---+ + +-------+ +------+---+---+ | ropivacaine (PF) (NAROPIN) | Given | 02/13/19 | 5 mL | | | | injection INTRAPROCEDURE PRN, | | 15 8:18 | | | | | Starting 02/13/14 at 0815, | | AM PST | | | | | Until 02/13/14 at 0955 | | | | | | + +-------+ +------+---+---+ +-------+ +------+---+---+ | Given | 02/13/19 | 5 mL | | | | | 15 8:17 | | | | | | AM PST | | | | +-------+ +------+---+---+ | Given | 02/13/19 | 5 mL | | | | | 15 8:16 | | | | | | AM PST | | | | +-------+ +------+---+---+ +---+---+ | | | +---+---+ documented in this encounter"
--- OUTSIDE RECORDS SUMMARY | ~2018-06-28 | XMS | Encounter Summary ---
Demographics + + + | Address | [address] | | | [address] | | | [place] [address] | + + + | Home Phone | | + + + | Preferred Language | Unknown | + + + | Marital Status | Unmarried Domestic Partner | + + + | Spiritism Affiliation | NON | + + + | Race | White | + + + | Ethnic Group | Not or | + + + Author + + + | Author | [facility] | + + + | Organization | [facility] | + + + | Address | Unknown | + + + | Phone | Unavailable | + + + Support + + +---------+ + | Name | Relationship | Address | Phone | + + +---------+ + | Roque Headings | ECON | Unknown | | + + +---------+ + Care Team Providers + +------+ + | Care Knit Goods Washer Name | Role | Phone | + +------+ + | No Pcp Per Patient | PCP | Unavailable | + +------+ + Reason for Visit +--------+ + | Reason | Comments | +--------+ + | Other | | +--------+ + Encounter Details +--------+ + + + + | Date | Type | Department | Care Team | Description | +--------+ + + + + | 04/29/ | Telephone | Orthopaedics at | Christopher Benitez, | Other | | 2014 | | [address] [address] | [address] | | | | | [address] | [address] | | | | | [address] | [place], [place] | | | | | [place], [place] | [address] | | | | | [address] | [phone] | | | | | [phone] | | | +--------+ + + + [...]
--- OUTSIDE RECORDS SUMMARY | ~2018-06-28 | XMS | Encounter Summary ---
Demographics + + + | Address | [address] | | | [address] | | | [place] [address] | + + + | Home Phone | | + + + | Preferred Language | Unknown | + + + | Marital Status | Unmarried Domestic Partner | + + + | Anglican Affiliation | NON | + + + | Race | White | + + + | Ethnic Group | Not or | + + + Author + + + | Author | [facility] | + + + | Organization | [facility] | + + + | Address | Unknown | + + + | Phone | Unavailable | + + + Support + + +---------+ + | Name | Relationship | Address | Phone | + + +---------+ + | Roque Headings | ECON | Unknown | | + + +---------+ + Care Team Providers + +------+ + | Care Desk Interviewer Name | Role | Phone | + +------+ + | No Pcp Per Patient | PCP | Unavailable | + +------+ + Reason for Visit + + + | Reason | Comments | + + + | Letter From | | | Specialist | | + + + Encounter Details +--------+ + + + + | Date | Type | Department | Care Team | Description | +--------+ + + + + | 01/26/ | Telephone | Orthopaedics at | Christopher Benitez, | Letter From | | 2013 | | [address] [address] | [address] | Specialist | | | | [address]alcava | [facility] | | | | | [facility] [address] | [place], [place] | | | | | [place], [place] | [address] | | | | | [address] | [phone] | | | | | [phone] | | | +--------+ + + + [...]
--- OUTSIDE RECORDS SUMMARY | ~2018-06-28 | XMS | Encounter Summary ---
Demographics + + + | Address | [address] | | | [address] | | | [place] [address] | + + + | Home Phone | | + + + | Preferred Language | Unknown | + + + | Marital Status | Unmarried Domestic Partner | + + + | Bahai Affiliation | NON | + + + | Race | White | + + + | Ethnic Group | Not or | + + + Author + + + | Author | [facility] | + + + | Organization | [facility] | + + + | Address | Unknown | + + + | Phone | Unavailable | + + + Support + + +---------+ + | Name | Relationship | Address | Phone | + + +---------+ + | Roque Headings | ECON | Unknown | | + + +---------+ + Care Team Providers + +------+ + | Care Ammonium Sulfate Operator Name | Role | Phone | + +------+ + PCP | Unavailable | + +------+ + Encounter Details +--------+ + + + + | Date | Type | Department | Care Team | Description | +--------+ + + + + | 03/14/ | Hospital | Dermatopathology | | | | 2012 | Encounter | [address] | | | | | | Mail Code: CH16D | | | | | | [facility] | | | | | | and Healing, 5th | | | | | | floor [place], [place] | | | | | | [address] | | | | | | [phone] | | | +--------+ + + + [...] | + +--------+ + + + | DERMATOPATHOLOGY(CON | Routin | 03/14/2012 | | Results for this | | SULT) | e | | | procedure are in the | | | | | | results section. | + +--------+ + + + documented in this encounter Results DERMATOPATHOLOGY(CONSULT) (03/14/2012) + + + + + + | Component | Value | Ref Range | Performed | Pathologist | | | | | At | Signature | + + + + + + | DERMATOPATH | SOURCE OF SPECIMEN:A Rt. | | [facility] | | | (CONSULT) | lateral thorax, punch | | DERMATOPATH | | | | biopsy CLINICAL | | OLOGY | | | | DESCRIPTION:Please r/o | | | | | | IDN.Materials Received: | | | | | | [id number], 1 | | | | | | slide. Dear | | | | | | Sudha: | | | | | | Thank you for | | | | | | asking us to review | | | | | | Emma Mosqueda's right | | | | | | lateral thoraxbiopsy | | | | | | where there is a | | | | | | dome-shaped papule, | | | | | | within which are | | | | | | numerous nestsand cords | | | | | | of melanocytes filling | | | | | | the dermis and extending | | | | | | in periadnexalfashion. | | | | | | Most of the melanocytic | | | | | | nuclei are moderately | | | | | | large and round tooval, | | | | | | and most of the cells | | | | | | contain increased | | | | | | amounts of | | | | | | amphophiliccytoplasm. 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 The | | | | | | nevus extends to the | | | | | | peripheral | | | | | | margins. Thank | | | | | | you for referring this | | | | | | consultation.Received: | | | | | | [id number], 1 | | | | | | slide. | | | | | | KPW:emr03/22/12 My | | | | | | [...] Signed | | | | | | 03/22/2012 4:14PM | | | | + + + + + + + + | Specimen | + + | | + + + + + + + | Performing | Address | City/State/Zipcode | Phone Number | | Organization | | | | + + + + + | [facility] | [address] | [place] [address] | | | DERMATOPATHOLOGY | [address] | | | + + + + + documented in this encounter Visit Diagnoses Not on filedocumented in this encounter"
--- OUTSIDE RECORDS SUMMARY | ~2018-06-28 | XMS | Encounter Summary ---
Demographics + + + | Address | [address] | | | [address] | | | [place] [address] | + + + | Home Phone | | + + + | Preferred Language | Unknown | + + + | Marital Status | Unmarried Domestic Partner | + + + | Religion Affiliation | NON | + + + | Race | White | + + + | Ethnic Group | Not or | + + + Author + + + | Author | [facility] | + + + | Organization | [facility] | + + + | Address | Unknown | + + + | Phone | Unavailable | + + + Support + + +---------+ + | Name | Relationship | Address | Phone | + + +---------+ + | Roque Headings | ECON | Unknown | | + + +---------+ + Care Team Providers + +------+ + | Care Assembling Machine Operator Name | Role | Phone | + +------+ + | No Pcp Per Patient | PCP | Unavailable | + +------+ + Reason for Referral Consult to [place] (Routine) +--------+--------+ + + + + | Status | Reason | Specialty | Diagnoses / | Referred By | Referred To | | | | | Procedures | Contact | Contact | +--------+--------+ + + + + | Closed | | Orthopedics | Diagnoses | Sothern, | Mirkeshawni, | | | | | Other | KISHA Bergeron | Christopher Singh MD | | | | | complication | [address] | [address] | | | | | s due to | Ave | [address] | | | | | other | [place], [place] | [place], | | | | | internal | [address] | [place] | | | | | orthopedic | Phone: | [phone] | | | | | device, | [phone] | Phone: | | | | | implant, and | Fax: | [phone] | | | | | graft | [phone] | Fax: | | | | | Procedures | | [phone] | | | | | REQUEST TO | | | | | | | SURGERY | | | | | | | SHARED SERVICES MANAGER | | | | | | | IN REM | | | | | | | SUTURES W | | | | | | | ANESTH SAME | | | | | | | SURGEON IN | | | | | | | REM SUTURES | | | | | | | W ANESTH | | | | | | | OTHR SURGEON | | | +--------+--------+ + + + + Reason for Visit + + + | Reason | Comments | + + + | Wrist pain | follow up | + + + PROC - Outpatient Surgery (Routine) +--------+--------+ + [...] | | cartilage | Provider Per | [address] | | | | | disorder, | Patient NO | [address] | | | | | forearm | REFERRING | Orion Roa, | | | | | Procedures | PROVIDER PER | [place] | | | | | REQUEST TO | [place] | [address] | | | | | SURGERY | | Phone: | | | | | SHARED SERVICES MANAGER | | [phone] | | | | | IN WRIST | | Fax: | | | | | ARTHROSCOP,E | | [phone] | | | | | XCIS TRIANG | | | | | | | CART | | | +--------+--------+ + + + + Encounter Details +--------+---------+ + + + | Date | Type | Department | Care Team | Description | +--------+---------+ + + + | 04/07/ | Office | Orthopaedics at | Elyssa Scott PA | Retained suture, | | 2015 | Visit | [facility] [address] | [address] | subsequent encounter | | | | [address] | [place], [place] | (Primary Dx) | | | | [address] | [address] | | | | | [place] | [phone] | | | | | [address] | | | | | | [phone] | | | +--------+---------+ + + + [...] + + + + | Weight | 77.1 kg (170 lb) | 04/07/2014 11:46 AM | | | | | PST | | + + + + + | Height | 177.8 cm (5' 10") | 04/07/2014 11:46 AM | | | | | PST | | + + + + + | Body Mass Index | 24.39 | 04/07/2014 11:46 AM | | | | | PST | | + + + + + documented in this encounter Progress Notes Elyssa Scott PA - 04/07/2014 3:29 PM PSTEmma Mosqueda is a 28 y.o. female Patient of Dr. Benitez that is status post TFCC repair, has been out of long arm cast for several weeks She has noticed a bump at the proximal aspect of ulnar incision that is painful There have not been any breaks in the skin or visible suture material On exam today patient has small bump at proximal end of incision that is rubbery, and painf ul to palpation Likely a retained suture in the process of self absorption Discussed options with patient in terms of continued monitoring vs excision of retained sut ure in [place] Risks and benefits given Will place intake should she want to proceed but she would like to speak with her significa nt other She will call us should she want to proceed with a surgical intervention documented in this encou nter Plan of Treatment Not on filedocumented as of this encounter Visit Diagnoses + + | Diagnosis | + + | Retained suture, subsequent encounter - Primary | + + documented in this encounter
--- OUTSIDE RECORDS SUMMARY | ~2018-06-28 | XMS | Encounter Summary ---
Demographics + + + | Address | [address] | | | [address] | | | [place] [address] | + + + | Home Phone | | + + + | Preferred Language | Unknown | + + + | Marital Status | Unmarried Domestic Partner | + + + | Buddhism Affiliation | NON | + + + | Race | White | + + + | Ethnic Group | Not or | + + + Author + + + | Author | [facility] [employer] [facility] | + + + | Organization | [facility] [employer] [facility] | + + + | Address | Unknown | + + + | Phone | Unavailable | + + + Support + + +---------+ + | Name | Relationship | Address | Phone | + + +---------+ + | Roque Headings | ECON | Unknown | | + + +---------+ + Care Team Providers + +------+ + | Care Financial Services Specialist Name | Role | Phone | + +------+ + | No Pcp Per Patient | PCP | Unavailable | + +------+ + Encounter Details +--------+ + + + + | Date | Type | Department | Care Team | Description | +--------+ + + + + | 02/13/ | Document-Sc | UNKNOWN DEPARTMENT | Other, Faculty | | | 2014 | anned | [address] [facility] | [phone] | | | | | [facility] | | | | | | [place], [place] | | | | | | [address] | | | +--------+ + + + [...]
--- OUTSIDE RECORDS SUMMARY | ~2018-06-28 | XMS | Encounter Summary ---
Demographics + + + | Address | [address] | | | [address] | | | [place] [address] | + + + | Home Phone | | + + + | Preferred Language | Unknown | + + + | Marital Status | Unmarried Domestic Partner | + + + | Cheondoism Affiliation | NON | + + + | Race | White | + + + | Ethnic Group | Not or | + + + Author + + + | Author | [facility] [place] | + + + | Organization | [facility] [place] [facility] | + + + | Address | Unknown | + + + | Phone | Unavailable | + + + Support + + +---------+ + | Name | Relationship | Address | Phone | + + +---------+ + | Roque Headings | ECON | Unknown | | + + +---------+ + Care Team Providers + +------+ + | Care Property Investor Name | Role | Phone | + +------+ + | No Pcp Per Patient | PCP | Unavailable | + +------+ + Encounter Details +--------+---------+ + + + | Date | Type | Department | Care Team | Description | +--------+---------+ + + + | 04/03/ | Office | [facility] | Mirna Stevenson | Injury of triangular | | 2015 | Visit | Occupational Therapy | [address] | fibrocartilage | | | | Services at [place] | [address] | complex of left | | | | [address] | [place], [place] | wrist (Primary Dx) | | | | [place] | [address] | | | | | Mailcode: [facility] [place] | | | | | | Ortho Clinic | | | | | | [address] [place], 1st | | | | | | floor [place] | | | | | | [address] | | | | | | [phone] | | | +--------+---------+ + + + [...] documented as of this encounter Progress Notes Mirna Stevenson, OT - 04/03/2014 9:05 AM [id number] EMMA MOSQUEDA Date of : 1985 Start of care: 03/24/2014 Date of onset: 02/13/2014 Attending Surgeon: Christopher Benitez M.D. Associate Data Scientist(s): Eliseo Gil M.D. Preoperative Diagnosis(es): Left wrist pain and triangular fibrocartilaginous complex (TFCC ) injury Postoperative Diagnosis(es): Same Procedures Performed: 1. Left wrist arthroscopy, and debridement 2. Left triangular fibrocartilaginous complex (TFCC) arthroscopic repair. 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 Pain level /10. Objective: (L) ulnar wrist, appears there may be an internal stitch working its way out. More prominen t nodule noted since last visit 2 days ago and pt reporting it is very sore and also appears to be "growing": Instructed to call Dr's office Papi it this continues to have them look at it. Elbow: (L) 0-145 degrees stiff with flexion/ext Supination; 40 (+10) post tx: 54 Wrist flexion: 40 (+10) Wrist ext: 40 (+3) Post tx: 44 Hot pack with supination stretch applied for 10 Mins. Treatment Today: therapeutic exercise. 30 min Assessment: 1. May be a stitch working it's way out of ulnar wrist. Pt to call Dr on Sunday it it cont inues to become more prominent. 2. Slowly improving motion, most limited in supination. Plan: Monitor response to increased splint wear. (better sleeping, less aching) Measure AROM and progress as tolerated. Treatment began: 900 Treatment ended: 930 documented in thi s encounter Plan of Treatment Not on filedocumented as of this encounter Procedures + +--------+ + + + | Procedure Name | Priori | Date/Time | Associated Diagnosis | Comments | | | ty | | | | + +--------+ + + + | ID THERAPEUTIC | Routin | 04/03/2014 | Injury of | | | EXERCISES | e | 9:28 AM | triangular | | | | [...]
--- OUTSIDE RECORDS SUMMARY | ~2018-06-28 | XMS | Encounter Summary ---
Demographics + + + | Address | [address] | | | [address] | | | [place] [address] | + + + | Home Phone | | + + + | Preferred Language | Unknown | + + + | Marital Status | Unmarried Domestic Partner | + + + | Mandaen Affiliation | NON | + + + | Race | White | + + + | Ethnic Group | Not or | + + + Author + + + | Author | [facility] | + + + | Organization | [facility] | + + + | Address | Unknown | + + + | Phone | Unavailable | + + + Support + + +---------+ + | Name | Relationship | Address | Phone | + + +---------+ + | Roque Headings | ECON | Unknown | | + + +---------+ + Care Team Providers + +------+ + | Care Application Technician Name | Role | Phone | + +------+ + | No Pcp Per Patient | PCP | Unavailable | + +------+ + Reason for Visit +--------+ + | Reason | Comments | +--------+ + | FMLA | | +--------+ + Encounter Details +--------+ + + + + | Date | Type | Department | Care Team | Description | +--------+ + + + + | 02/04/ | Documentati | Orthopaedics at | Christopher Benitez, | FMLA | | 2013 | on | Pending [facility] To [facility] [address] | [address] | | | | | [address] | [address] | | | | | [address] | [place], [place] | | | | | [place], [place] | [address] | | | | | [address] | [phone] | | | | | [phone] | | | +--------+ + + + [...]
--- OUTSIDE RECORDS SUMMARY | ~2018-06-28 | XMS | Encounter Summary ---
Demographics + + + | Address | [address] | | | [address] | | | [place] [address] | + + + | Home Phone | | + + + | Preferred Language | Unknown | + + + | Marital Status | Unmarried Domestic Partner | + + + | Orthodoxy Affiliation | NON | + + + | Race | White | + + + | Ethnic Group | Not or | + + + Author + + + | Author | [facility] [employer] [facility] | + + + | Organization | [facility] [employer] [facility] | + + + | Address | Unknown | + + + | Phone | Unavailable | + + + Support + + +---------+ + | Name | Relationship | Address | Phone | + + +---------+ + | Roque Headings | ECON | Unknown | | + + +---------+ + Care Team Providers + +------+ + | Care Museum Or Zoo Director Name | Role | Phone | + [...] [address] | | | | | | [facility] | | | | | | and Healing, 5th | | | | | | floor [place], [place] | | | | | | [address] | | | | | | [phone] | | | +--------+ + + + [...] Received: | | | | | | [id number], 1 | | | | | | [...] consultation.Received: | | | | | | [id number], 1 | | | | | | [...] [facility] | [address], [address] | [place] [address] | | | DERMATOPATHOLOGY | [address] | | | + + + + + documented in this encounter Visit Diagnoses Not on filedocumented in this encounter"
--- OUTSIDE RECORDS SUMMARY | ~2018-06-28 | XMS | Encounter Summary ---
Demographics + + + | Address | [address] | | | [address] | | | [place] [address] | + + + | Home Phone | | + + + | Preferred Language | Unknown | + + + | Marital Status | Unmarried Domestic Partner | + + + | Holiness Affiliation | NON | + + + | Race | White | + + + | Ethnic Group | Not or | + + + Author + + + | Author | [facility] [employer] [facility] | + + + | Organization | [facility] [employer] [facility] | + + + | Address | Unknown | + + + | Phone | Unavailable | + + + Support + + +---------+ + | Name | Relationship | Address | Phone | + + +---------+ + | Roque Headings | ECON | Unknown | | + + +---------+ + Care Team Providers + +------+ + | Care Mica Splitter Name | Role | Phone | + [...] | | | | ge complex) | [place], [place] | [facility] | | | | | tear, | [address] | for Health | | | | | unspecified | Phone: | and Healing, | | | | | laterality, | [phone] | 1st floor | | | | | subsequent | Fax: | [place], [place] | | | | | encounter | [phone] | [address] | | | | | Procedures | | Phone: | | | | | OCC HAND | | [phone] | | | | | THERAPY | | Fax: | | | | | REFERRAL IN | | [phone] | | | | | [facility] | | | +--------+--------+ + + + + Encounter Details +--------+---------+ + + + | Date | Type | Department | Care Team | Description | +--------+---------+ + + + | 04/14/ | Office | [facility] Occupational | Mirna Stevenson | Injury of triangular | | 2015 | Visit | Therapy Services at | [place], [address] | fibrocartilage | | | | [facility] | [facility] [address] | complex of left | | | | [address] | [place], [place] | wrist (Primary Dx) | | | | Mailcode: [facility] | [address] | | | | | [place] for [facility] | | | | | | and Healing, 1st | | | | | | floor [place], [place] | | | | | | [address] | | | | | | [phone] | | | +--------+---------+ + + + [...] encounter Progress Notes Mirna Stevenson, OT - 04/14/2014 9:28 AM PST [id number] EMMA MOSQUEDA Date of : 1985 Start of care: 03/24/2014 Date of onset: 02/13/2014 Attending Surgeon: Christopher Benitez M.D. Gum Worker(s): Eliseo Gil M.D. Preoperative Diagnosis(es): Left wrist pain and triangular fibrocartilaginous complex (TFCC ) injury Postoperative Diagnosis(es): Same Procedures Performed: 1. Left wrist arthroscopy, and debridement 2. Left triangular fibrocartilaginous complex (TFCC) arthroscopic repair. 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 Reports wrist pain with pushing baby carriage, and also when driving. Pain level 4/10. Objective: Saw Is a suture working it's way out. Choose not to have removed at this time. Elbow: (L) 0-150 degrees Now WNL's (R) 150 degrees Supination; 60 (+20) Wrist flexion: 50 (+10) Wrist ext: 45 (+5) UD: 20 RD: 15 Firepot Operator And Tender: (R):77 lbs (L): 22 lbs Movement with mob. For wrist ext. Sign. Increased motion: Ext: 60 degrees Ulnar deviation: 35 degrees K-tape for ulnar wrist support for pushing baby carriage and driving. Reported decreased pa in. Intervention Date* Comments Compliance Predicted: Should do well Ball ex's 04/14/2014 Rolling on ball for wrist flex/ext, and UD/RD Wrist strengthening 04/14/[address] and hold with supinated wrist flex/ ext 3 sec , 5 reps/ 1 x daily Active motion: pronated wrist flex/ext 5 reps/ 1 time daily Red putty 04/14/2014 2-3 times daiily Fisting 30 sec. FDS fist 5 reps Finger drags 4 times * indicates date intervention started. see comments for details of compliance, modification s, deletions Treatment Today: therapeutic exercise. 45 min Assessment: 1. Motion improving, but wrist ext is painful (improved after mob) 2. Progressed strengthening audio visual manager ex's and wrist strengthening (no wt) Plan: Mobilization with movement for wrist motion as needed. Progress strengthening As tolerated. (increase reps or add wt. To wrist ex's) Progress pu tty as tolerated. Monitor response to K-taping for support for ADL's Treatment began: 930 Treatment ended: 1015 documented in thi s encounter Plan of Treatment Not on filedocumented as of this encounter Procedures + +--------+ + + + | Procedure Name | Priori | Date/Time | Associated Diagnosis | Comments | | | ty | | | | + +--------+ + + + | MT MANUAL THER | Routin | 04/14/2014 | Injury of | | | TECH,1+REGIONS,EA 15 | e | 1:12 PM | triangular | | | MIN | | PST | fibrocartilage | | | | | | complex of left | | | | | | wrist | | + +--------+ + + + | MT THERAPEUTIC | Routin | 04/14/2014 | Injury of | | | EXERCISES | e | 1:12 PM | triangular | | | | | [...]
--- OUTSIDE RECORDS SUMMARY | ~2018-06-28 | XMS | Encounter Summary ---
Demographics + + + | Address | [address] | | | [address] | | | [place] [address] | + + + | Home Phone | | + + + | Preferred Language | Unknown | + + + | Marital Status | Unmarried Domestic Partner | + + + | Taoism Affiliation | NON | + + + | Race | White | + + + | Ethnic Group | Not or | + + + Author + + + | Author | [facility] | + + + | Organization | [facility] | + + + | Address | Unknown | + + + | Phone | Unavailable | + + + Support + + +---------+ + | Name | Relationship | Address | Phone | + + +---------+ + | Roque Headings | ECON | Unknown | | + + +---------+ + Care Team Providers + +------+ + | Care Communications Designer Name | Role | Phone | + [...] 2013 | | [address] | [address] | Specialist | | | | [address] | [facility] | | | | | [facility] [address] | [place], [place] | | | | | [place], [place] | [address] | | | | | [address] | [phone] | | | | | [phone] | | | +--------+ + + + [...]
--- OUTSIDE RECORDS SUMMARY | ~2018-06-28 | XMS | Encounter Summary ---
Demographics + + + | Address | [address] | | | [address] | | | [place] [address] | + + + | Home Phone | | + + + | Preferred Language | Unknown | + + + | Marital Status | Unmarried Domestic Partner | + + + | Methodist Affiliation | NON | + + + | Race | White | + + + | Ethnic Group | Not or | + + + Author + + + | Author | [facility] | + + + | Organization | [facility] | + + + | Address | Unknown | + + + | Phone | Unavailable | + + + Support + + +---------+ + | Name | Relationship | Address | Phone | + + +---------+ + | Roque Headings | ECON | Unknown | | + + +---------+ + Care Team Providers + +------+ + | Care Die Try Out Worker Name | Role | Phone | [...] [id number] | | | | | | [facility] | | | | | | and Healing, 5th | | | | | | floor [place], [place] | | | | | | [address] | | | | | | [phone] | | | +--------+ + + + [...] | | | | | papular skin [email or web address] | | | | | | surgical [...] [facility] | Mailcode [address] | [place] [address] | | | DERMATOPATHOLOGY | [address] | | | + + + + + documented in this encounter Visit Diagnoses Not on filedocumented in this encounter"
--- OUTSIDE RECORDS SUMMARY | ~2018-06-28 | XMS | Encounter Summary ---
Demographics + + + | Address | [address] | | | [address] | | | [place] [address] | + + + | Home Phone | | + + + | Preferred Language | Unknown | + + + | Marital Status | Unmarried Domestic Partner | + + + | Episcopal Affiliation | NON | + + + | Race | White | + + + | Ethnic Group | Not or | + + + Author + + + | Author | [facility] | + + + | Organization | [facility] | + + + | Address | Unknown | + + + | Phone | Unavailable | + + + Support + + +---------+ + | Name | Relationship | Address | Phone | + + +---------+ + | Roque Headings | ECON | Unknown | | + + +---------+ + Care Team Providers + +------+ + | Care Melt House Centrifugal Operator Name | Role | Phone | [...] | | | | ge complex) | [place], [place] | [facility] | | | | | tear, | [address] | for Health | | | | | unspecified | Phone: | and Healing, | | | | | laterality, | [phone] | 1st floor | | | | | subsequent | Fax: | [place], [place] | | | | | encounter | [phone] | [address] | | | | | Procedures | | Phone: | | | | | OCC HAND | | [phone] | | | | | THERAPY | | Fax: | | | | | REFERRAL IN | | [phone] | | | | | [facility] | [...] fibrocartilage | | | | Services at [facility] | [address] [place], [place] | complex of left | | | | [place] [address] | [address] | wrist (Primary Dx) | | | | [address] Mailcode: | | | | | | [facility] | | | | | | Health and Healing, | | | | | | [facility] | | | | | | [place], [place] | | | | | | [address] | | | | | | [phone] | | | +--------+---------+ + + + [...] r hand therapy appointment. She was in [place] visiting her mom and will not be [...]
--- OUTSIDE RECORDS SUMMARY | ~2018-06-28 | XMS | Encounter Summary ---
Demographics + + + | Address | [address] | | | [address] | | | [place] [address] | + + + | Home Phone | | + + + | Preferred Language | Unknown | + + + | Marital Status | Unmarried Domestic Partner | + + + | Episcopalian Affiliation | NON | + + + | Race | White | + + + | Ethnic Group | Not or | + + + Author + + + | Author | [facility] [employer] [facility] | + + + | Organization | [facility] [employer] [facility] | + + + | Address | Unknown | + + + | Phone | Unavailable | + + + Support + + +---------+ + | Name | Relationship | Address | Phone | + + +---------+ + | Roque Headings | ECON | Unknown | | + + +---------+ + Care Team Providers + +------+ + | Care Flooring Mechanic Name | Role | Phone | + +------+ + | No Pcp Per Patient | PCP | Unavailable | + +------+ + Encounter Details +--------+ + + + + | Date | Type | Department | Care Team | Description | +--------+ + + + + | 02/13/ | Document-Sc | UNKNOWN DEPARTMENT | Other, Faculty | | | 2014 | anned | [address] [facility] | [phone] | | | | | [facility] | | | | | | [place], [place] | | | | | | [address] | | | +--------+ + + + [...]
--- OUTSIDE RECORDS SUMMARY | ~2018-06-28 | XMS | Encounter Summary ---
Demographics + + + | Address | [address] | | | [address] | | | [place] [address] | + + + | Home Phone [...] + + | Author | [facility] [facility] | + + + | Organization | [facility] [facility] | + + + | Address | Unknown | + + + | Phone | Unavailable | + + + Support + + +---------+ + | Name | Relationship | Address | Phone | + + +---------+ + | Roque Headings | ECON | Unknown | | + + +---------+ + Care Team Providers + +------+ + | Care Clinic Supervisor Name | Role | Phone | + +------+ + | No Pcp Per Patient | PCP | Unavailable | + +------+ + Reason for Visit + + + | Reason | Comments | + + + | Wrist pain | post op | + + + PROC - Outpatient Surgery (Routine) +--------+--------+ + + + + | Status | Reason | Specialty | Diagnoses / | Referred By | Referred To | | | | | Procedures | Contact | Contact | +--------+--------+ + + + + | Closed | | Orthopedics | Diagnoses | No | Eli, | | | | | Articular | [...] | | REQUEST TO | [place] | [address] | | | | | SURGERY | | Phone: | | | | | SPA THERAPIST | | [phone] | | | | | [place] WRIST | | Fax: | | | | | ARTHROSCOP,E | | [phone] | | | | | [facility]IS TRIANG | | | | | | | CART | | | +--------+--------+ + + + + Encounter Details +--------+---------+ + + + | Date | Type | Department | Care Team | Description | +--------+---------+ + + + | 03/24/ | Office | Orthopaedics at | Christopher Benitez, | Injury of triangular | | 2015 | Visit | [facility] [address] | [address] | fibrocartilage | | | | [address] | [address] | complex of left | | | | [address] | [place], [place] | wrist (Primary Dx) | | | | [place], [place] | [address] | | | | | [address] | [phone] | | | | | [phone] | | | +--------+---------+ + + + [...] documented as of this encounter Progress Notes Christopher Benitez MD - 03/24/2014 10:46 AM [facility] Surgery: 02/13/14 Interval history: Emma Mosqueda is a 28 y.o. female who presents for [address] undergoing left wrist arthroscopy and TFCC repair. She states that she has been doing w ell. She has been in a splint since the time of her surgery. She has occasional pain that is relieved with medications. On exam . General: appropriate, oriented Respiratory: regular, appropriate effort LUE: Well healed incisions Intact AIN/PIN/MED/RAD/ULN nerves Fingers WWP Mildly altered sensation in ulnar sensory nerve dist Decreased wrist ROM ASSESSMENT/PLAN: : Emma Mosqueda is a 28 y.o. female with history of left wrist arthr oscopy and TFCC repair - Patient doing well. - To begin hand therapy today. - Follow up in 6 weeks for repeat exam. I performed a history and physical examination of the patient and discussed her management with the resident. I reviewed the resident s note and agree with the documented findings and plan of care. 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
--- OUTSIDE RECORDS SUMMARY | ~2018-06-28 | XMS | Encounter Summary ---
Demographics + + + | Address | [address] | | | [address] | | | [place] [address] | + + + | Home Phone | | + + + | Preferred Language | Unknown | + + + | Marital Status | Unmarried Domestic Partner | + + + | Gnosticism Affiliation | NON | + + + | Race | White | + + + | Ethnic Group | Not or | + + + Author + + + | Author | [facility] [employer] [facility] | + + + | Organization | [facility] [employer] [facility] | + + + | Address | Unknown | + + + | Phone | Unavailable | + + + Support + + +---------+ + | Name | Relationship | Address | Phone | + + +---------+ + | Roque Headings | ECON | Unknown | | + + +---------+ + Care Team Providers + +------+ + | Care Registered Nurse Teacher Name | Role | Phone | + [...] + + | 02/13/ | Hospital | [facility] | Christopher Benitez, | | | 2014 | Encounter | [address] | [address] | | | | | [facility] | [address] | | | | | FOR [facility] AND | [place], [place] | | | | | HEALING [place], | [address] | | | | | [place] [address] | [phone] | | | | | [phone] | | | +--------+ + + + [...] | + + + +---------+--------+ + | [place] [employer] | Take by mouth once | [...]
--- OUTSIDE RECORDS SUMMARY | ~2018-06-28 | XMS | Encounter Summary ---
Demographics + + + | Address | [address] | | | [address] | | | [place] [address] | + + + | Home Phone | | + + + | Preferred Language | Unknown | + + + | Marital Status | Unmarried Domestic Partner | + + + | Advent Affiliation | NON | + + + | Race | White | + + + | Ethnic Group | Not or | + + + Author + + + | Author | [facility]LY [facility], [facility] [employer] [facility] | + + + | Organization | [facility] [employer] [facility] | + + + | Address | Unknown | + + + | Phone | Unavailable | + + + Support + + +---------+ + | Name | Relationship | Address | Phone | + + +---------+ + | Roque Headings | ECON | Unknown | | + + +---------+ + Care Team Providers + +------+ + | Care Dressing Room Attendant Name | Role | Phone | + [...] | | | | [address] | [place], [place] | | | | | [place], [place] | [address] | | | | | [address] | [phone] | | | | | [phone] | | | +--------+ + + + [...]
--- OUTSIDE RECORDS SUMMARY | ~2018-06-28 | XMS | Encounter Summary ---
Demographics + + + | Address | [address] | | | [address] | | | [place] [address] | + + + | Home Phone [...] Author + + + | Author | [facility] | + + + | Organization | [facility] | + [...] Team Providers + +------+ + | Care Hostess Host Name | Role | Phone | + +------+ + | No Pcp Per Patient | PCP | Unavailable | + +------+ + Reason for Visit PROC - Outpatient Surgery (Routine) +--------+--------+ + [...] | | cartilage | Provider Per | [address] | | | | | disorder, | Patient NO | [address] | | | | | forearm | REFERRING | Orion Roa | | | | | Procedures | PROVIDER PER | [place] | | | | | REQUEST TO | [place] | [phone] | | | | | SURGERY | | Phone: | | | | | CUSHION ASSEMBLER | | [phone] | | | | | SC WRIST | | Fax: | | | | | ARTHROSCOP,E | | [phone] | | | | | XCIS TRIANG | | | | | | | CART | | | +--------+--------+ + + + + Encounter Details +--------+---------+ + + + | Date | Type | Department | Care Team | Description | +--------+---------+ + + + | 04/28/ | Office | Orthopaedics at | Christopher Benitez, | Injury of triangular | | 2015 | Visit | [facility] [address] | MD Eric Johnson | fibrocartilage | | | | [address] | [address] | complex of left | | | | [address] | [place], [place] | wrist (Primary Dx) | | | | [place], [place] | [address] | | | | | [address] | [phone] | | | | | [phone] | | | +--------+---------+ + + + [...] encounter Progress Notes Christopher Benitez MD - 04/28/2014 2:57 PM PDT[facility] Surgery: 02/13/14, Left wrist arthroscopy, TFCC repair Interval history: Emma Mosqueda is a 28 y.o. female 6 weeks s/p above mentioned proce dure. Patient has been doing well. Having some soreness. She is having some paresthesias about the area of the TFCC repair. On exam . General: appropriate, oriented Respiratory: regular, appropriate effort LUE: Well healed incisions Mild parasthesias about the ulnar incision Hand WWP Intact AIN/PIN/MED/RAD/ULN nerves ASSESSMENT/PLAN: : Emma Mosqueda is a 28 y.o. female s/p left wrist arthroscopy and T FCC repair 1. Patient doing well 2. Advised to continue exercises on her own 3. With continued sensitivity from stitch, will discuss removal at follow up 4. Follow up in 3 months for repeat exam I performed a history and physical examination of the patient and discussed her management with the resident. I reviewed the resident s note and agree with the documented findings and plan of care. 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
--- OUTSIDE RECORDS SUMMARY | ~2018-06-28 | XMS | Encounter Summary ---
Demographics + + + | Address | [address] | | | [address] | | | [place] [address] | + + + | Home Phone [...] | [facility] [employer] [facility] | + + + | Organization | [facility] [employer] [facility] | + + + | Address | Unknown | + + + | Phone | Unavailable | + + + Support + + +---------+ + | Name | Relationship | Address | Phone | + + +---------+ + | Roque Headings | ECON | Unknown | | + + +---------+ + Care Team Providers + +------+ + | Care Supervisor Blood Donor Recruiters Name | Role | Phone | + [...] | | | | ge complex) | [place], [place] | [facility] | | | | | tear, | [address] | for Health | | | | | unspecified | Phone: | and Healing, | | | | | laterality, | [phone] | 1st floor | | | | | subsequent | Fax: | [place], [place] | | | | | encounter | [phone] | [address] | | | | | Procedures | | Phone: | | | | | OCC HAND | | [phone] | | | | | THERAPY | | Fax: | | | | | REFERRAL IN | | [phone] | | | | | [facility] | [...] fibrocartilage | | | | Services at [facility] | [facility] [facility] [address] | complex of left | | | | [place] | [place], [place] | wrist (Primary Dx) | | | | [address] Mailcode: | [phone] | | | | | [address] for | | | | | | Health and Healing, | | | | | | 1st Floor [place], | | | | | | [place] [address] | | | | | | [phone] | | | +--------+---------+ + + + [...] Mirna Stevenson, RYAN - 04/01/2014 10:16 AM [id number] EMMA MOSQUEDA Date of : 1985 Start of care: 03/24/2014 Date of onset: 02/13/2014 Attending Surgeon: Christopher Benitez M.D. Program Paraprofessional(s): Eliseo Gil M.D. Preoperative Diagnosis(es): Left wrist pain and triangular fibrocartilaginous complex (TFCC ) injury Postoperative Diagnosis(es): Same Procedures Performed: 1. Left wrist arthroscopy, and debridement 2. Left triangular fibrocartilaginous complex (TFCC) arthroscopic repair. 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 / Plan: [facility] STATEWIDE / Product Type: PPO / Service period from: 03/24/2014 to: 04/21/2014 Number visits used/authorized: 03/24 [facility] HAND/OCCUPATIONAL THERAPY PROGRESS NOTE Name: Emma [...] | + +--------+ + + + | RI THERAPEUTIC | Routin | 04/01/2014 | Injury [...]
--- OUTSIDE RECORDS SUMMARY | ~2018-06-28 | XMS | Encounter Summary ---
Demographics + + + | Address | [address] | | | [address] | | | [place] [address] | + + + | Home Phone [...] + + + | Author | [facility] [employer] [facility] | + + + | Organization | [facility] [employer] [facility] | + + + | Address | Unknown | + + + | Phone | Unavailable | + + + Support + + +---------+ + | Name | Relationship | Address | Phone | + + +---------+ + | Roque Headings | ECON | Unknown | | + + +---------+ + Care Team Providers + +------+ + | Care Jailer/Training Officer Name | Role | Phone | + [...] | | | | ge complex) | [place], [place] | [facility] | | | | | tear, | [address] | for Health | | | | | unspecified | Phone: | and Healing, | | | | | laterality, | [phone] | 1st floor | | | | | subsequent | Fax: | [place], [place] | | | | | encounter | [phone] | [phone] | | | | | Procedures | | Phone: | | | | | OCC HAND | | [phone] | | | | | THERAPY | | Fax: | | | | | REFERRAL IN | | [phone] | | | | | [facility] | | | +--------+--------+ + + + + Encounter Details +--------+---------+ + + + | Date | Type | Department | Care Team | Description | +--------+---------+ + + + | 03/24/ | Office | [facility] | Don, | Injury of triangular | | 2015 | Visit | Occupational Therapy | RYAN [address] | fibrocartilage | | | | Services at [facility] | complex of left | | | | [address] [place], [place] | wrist (Primary Dx) | | | | [address] | [phone] | | | | | Mailcode: [facility] | | | | | | Ortho Clinic | | | | | | [address], 1st | | | | | | floor [place] | | | | | | [address] | | | | | | [phone] | | | +--------+---------+ + + + [...] documented as of this encounter Progress Notes Yeni Ochoa, OT - 03/24/2014 10:54 AM PST [id number] EMMA MOSQUEDA Date of : 1985 Start of care: 03/24/2014 Date of onset: 02/13/2014 Attending Surgeon: Christopher Benitez M.D. Cotton Farmer(s): Eliseo Gil M.D. Preoperative Diagnosis(es): Left wrist pain and triangular fibrocartilaginous complex (TFCC ) injury Postoperative Diagnosis(es): Same Procedures Performed: 1. Left wrist arthroscopy, and debridement 2. Left triangular fibrocartilaginous complex (TFCC) arthroscopic repair. 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 female who presents with p ostop left hand and UE stiffness. 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 Pt. Enjoys vushaper arts (Rodati and cage fighting) as hobbies. Prior/concurrent treatment: splinting Med Hx: Emma has a past medical history of No pertinent past medical history and Migrain e, unspecified, without mention of intractable migraine without mention of status migrainosu s. She also has no past medical history of Difficult intubation or PONV (postoperative nause a and vomiting). Meds: Current outpatient prescriptions:HYDROcodone-acetaminophen (NORCO) 5-325 mg oral tabl et, Take 1 tablet by mouth every six hours as needed for pain. Not to exceed 6 in 24 hours, Disp: 60 tablet, Rfl: 0 HYDROcodone-acetaminophen (NORCO) 7.5-325 mg oral tablet, Take 1-3 tablets by mouth every t hree hours as needed (for pain). Not to exceed 3250 mg of acetaminophen from all products pe r 24 hour period., Disp: 40 tablet, Rfl: 0 MULTIVIT &MINERALS/FERROUS FUM (MULTI VITAMIN ORAL), Take by mouth once daily., Disp: , Rf l: [employer]-3 Fatty Acids-Vitamin E (FISH OIL) 1,000 mg oral capsule, Take by mouth once daily., Disp: , Rfl: Precaution/special problems: healing TFCC repair Pain level (0-10): Patient reports a pain level of today. 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 RANGE OF MOTION: Elbow: Left 20/122 right 4/150 Supination left: 30 right: 90 Pronation left 64 right 83 Wrist flexion left 15 right not tested Wrist extension left 30 Radial deviation left 15 Ulnar deviation left 0 Near full fist Thumb opposition to tip of small finger, unable to get to base of small finger SENSATION: Impaired dorsum wrist ulnar border ; intact volar per pt. TREATMENT TODAY:Evaluation(40min. Spent on evaluation) therapeutic exercise -15min. For sully e program and instruction Intervention Date* Comments Compliance 03/24/2014 Predicted: Moist heat/massage 03/24/2014 Active supination/pronation 03/24/2014 Active wrist flexon/extension 03/24/2014 Active radial/ulnar deviation Finger flexion/extension Thumb opposition 03/24/2014 * indicates date intervention started. see comments for details of compliance, modification s, deletions . ASSESSMENT: Emma requires services that can be safely and effectively performed only by a qualified t herapist to address the following problems and achieve the following goals: Treatment diagnosis: ICD-9-CM 1. 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 Will use bilateral hands for showering and dressing. Pt. Will self feed using left hand Pt. Will have 0/10 resting hand pain LONG-TERM GOALS: discussed with Emma, due in 8 weeks: Pt. Will improve ROM in all planes to use hands for driving, typing, feeding, bathing, dres sing without pain Pt. Will return to weightbearing and lifting weights PLAN OF CARE: Follow up with therapist and Follow up with MD. Frequency/Duration: Recommend f/u with hand therapy 2x per wk. X 3 weeks and reeval Treatment began: 1100 Treatment ended: 1145 This note is to serve as the discharge summary if Emma fails to attend further Occupation al Therapy appointments or contact the therapist regarding any change in their status. RYAN Hernandez OT REHABILITATION SERVICES AT [address] Mailcode: [address] [address] documented in this encounter Plan of Treatment Not on filedocumented as of this encounter Procedures + +--------+ + + + | Procedure Name | Priori | Date/Time | Associated Diagnosis | Comments | | | ty | | | | + +--------+ + + + | [place] THERAPEUTIC | Routin | 03/24/2014 | Injury of | | | EXERCISES | e | 12:37 PM | triangular | | | | | PST | fibrocartilage | | | | | | complex of left | | | | | | wrist | | + +--------+ + + + | [place] OCCUPATIONAL | Routin | 03/24/2014 | Injury of | | | THERAPY EVALUATION | e | 10:58 AM | triangular | | | | [...]
--- OUTSIDE RECORDS SUMMARY | ~2018-06-28 | XMS | Encounter Summary ---
Demographics + + + | Address | [address] | | | [address] | | | [place] [address] | + + + | Home Phone [...] Author | [facility] | + + + | Organization | [facility] | + + + | Address | Unknown | + + + | Phone | Unavailable | + + + Support + + +---------+ + | Name | Relationship | Address | Phone | + + +---------+ + | Roque Headings | ECON | Unknown | | + + +---------+ + Care Team Providers + +------+ + | Care Strap Setter Name | Role | Phone | + +------+ + PCP | Unavailable | + +------+ + Encounter Details +--------+ + + + + | Date | Type | Department | Care Team | Description | +--------+ + + + + | 06/28/ | Hospital | Dermatopathology | | | | 2011 | Encounter | [address] | | | | | | Mail Code: CH16D | | | | | | [facility] | | | | | | and Healing, 5th | | | | | | floor [place], [place] | | | | | | [address] | | | | | | [phone] | | | +--------+ + + + [...] + + | DERMATOPATHOLOGY(WET | Routin | 06/29/2011 | | Results for this | | [facility]OUNT) | e | | | procedure are in the | | | | | | results section. | + +--------+ + + + documented in this encounter Results DERMATOPATHOLOGY(WET [facility]) (06/29/2011) + + + + + + | Component | Value | Ref Range | Performed | Pathologist | | | | | At | Signature | + + + + + + | DERMATOPATH | SOURCE OF SPECIMEN:A Mid | | [facility] | | | OLOGY(WET | upper back, | | DERMATOPATH | | | MNT) | excision | | OLOGY | | | | CLINICAL | | | | | | DESCRIPTION:Please read | | | | | | margins bx. proven | | | | | | dysplastic nevus sutures | | | | | | at lt. apex. | | | | | | GROSS | | | | | | DESCRIPTION:Received in | | | | | | formalin is a specimen | | | | | | labeled Panda, | | | | | | Emma:A: Specimen | | | | | | consists of an ellipse | | | | | | of white skin [id number]. | | | | | | The specimen isoriented | | | | | | by a suture at one | | | | | | apex, which is | | | | | | designated as left apex | | | | | | by [facility]. With | | | | | | the suture in the 12:00 | | | | | | position, the specimen | | | | | | is inked bluefrom | | | | | | 12-6:00 and green from | | | | | | 6-9-12:00. The | | | | | | tissue is serially | | | | | | sectionedfrom 12:00 to | | | | | | 6:00 and submitted | | | | | | respectively in | | | | | | cassettes A1-A3. | | | | | | MICROSCOPIC | | | | | | DESCRIPTION:There are an | | | | | | increased number of | | | | | | collagen bundles with | | | | | | fibrocytes | | | | | | arrangedparallel to the | | | | | | skin surface with | | | | | | vertically oriented | | | | | | blood vessels. | | | | | | DIAGNOSIS:ULCERATION AND | | | | | | SCAR. NOTE: | | | | | | There is no evidence of | | | | | | a residual melanocytic | | | | | | neoplasm in | | | | | | thesesections. | | | | | | KPW:emr07/04/11 | | | | | | My electronic signature | | | | | [...] Kamran | | | | | | White | | | | | | M.D.PathologistElectroni | | | | | | ayesha Signed 07/04/2011 | | | | | | 11:15AM | | | | + + + + + + + + | Specimen | + + | | + + + + + + + | Performing | Address | City/State/Zipcode | Phone Number | | Organization | | | | + + + + + | [facility] | [address] | [place] [address] | | | DERMATOPATHOLOGY | [address] | | | + + + + + documented in this encounter Visit Diagnoses Not on filedocumented in this encounter"
--- OUTSIDE RECORDS SUMMARY | ~2018-06-28 | XMS | Encounter Summary ---
Demographics + + + | Address | [address] | | | [address] | | | [place] [address] | + + + | Home Phone | | + + + | Preferred Language | Unknown | + + + | Marital Status | Unmarried Domestic Partner | + + + | Rastafari Affiliation | NON | + + + | Race | White | + + + | Ethnic Group | Not or | + + + Author + + + | Author | [facility] | + + + | Organization | [facility] | + + + | Address | Unknown | + + + | Phone | Unavailable | + + + Support + + +---------+ + | Name | Relationship | Address | Phone | + + +---------+ + | Roque Headings | ECON | Unknown | | + + +---------+ + Care Team Providers + +------+ + | Care Therapy Director Name | Role | Phone | + +------+ + | No Pcp Per Patient | PCP | Unavailable | + +------+ + Encounter Details +--------+ + + + + | Date | Type | Department | Care Team | Description | +--------+ + + + + | 06/08/ | Document-Sc | UNKNOWN DEPARTMENT | Unknown . | | | 2015 | anned | [address] [facility] | | | | | | [facility] | | | | | | [place], [place] | | | | | | [address] | | | +--------+ + + + [...]
--- OUTSIDE RECORDS SUMMARY | ~2018-06-28 | XMS | Clinical Summary ---
Demographics + + + | Address | [address] | | | [address] | | | [place] [address] | + + + | Home Phone | | + + + | Preferred Language | Unknown | + + + | Marital Status | Unmarried Domestic Partner | + + + | Gnosticist Affiliation | NON | + + + | Race | White | + + + | Ethnic Group | Not or | + + + Author + + + | Author | [facility] | + + + | Organization | [facility] | + + + | Address | Unknown | + + + | Phone | Unavailable | + + + Support + + +---------+ + | Name | Relationship | Address | Phone | + + +---------+ + | Roque Headings | ECON | Unknown | | + + +---------+ + Care Team Providers + +------+ + | Care Home Visit Field Care Manager Name | Role | Phone | + +------+ + | No Pcp Per Patient | PP | Unavailable | + +------+ + Source Comments SALLIE is fully live on both [facility] and [facility] InPatient.[facility] Allergies + + + + + + | Active Allergy | Reactions | Severity | Noted | Comments | | | | | Date | | + + + + + + | Sulfa (Sulfonamide | Rash | Low | 10/29/19 | | | Antibiotics) | | | 14 | | + + + + + + Medications + + + +---------+------+------+-------+ | Medication | Sig | Dispensed | Refills | Star | End | Statu | | | | | | t | Date | s | | | | | | Date | | | + + + +---------+------+------+-------+ | [place]-3 Fatty | Take by mouth once | | 0 | | | Activ | | Acids-Vitamin E | daily. | | | | | e | | (FISH OIL) 1,000 mg | | | | | | | | oral capsule | | | | | | | + + + +---------+------+------+-------+ | MULTIVIT | Take by mouth once | | 0 | | | Activ | | &MINERALS/FERROUS | daily. | | | | | e | | FUM (MULTI VITAMIN | | | | | | | | ORAL) | | | | | | | + + + +---------+------+------+-------+ | | Take 1 tablet by | 60 | 0 | 02/1 | | Activ | | HYDROcodone-acetamin | mouth every six | tablet | | 0/20 | | e | | ophen (NORCO) 5-325 | hours as needed for | | | 15 | | | | mg oral tablet | pain. 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 | 03/24/2014 | + + + Family History + + +------+ + | Medical History | Relation | Name | Comments | + + +------+ + | Alcohol/Drug | Neg Hx | | | + + +------+ + | Anesthesia | Neg Hx | | | + + +------+ + | Arthritis | Neg Hx | | | + + +------+ + | Cancer | Neg Hx | | | + + +------+ + | Diabetes | Neg Hx | | | + + +------+ + | Heart Disease | Neg Hx | | | + + +------+ + | Hypertension | Neg Hx | | | + + +------+ + | Stroke | Neg Hx | | | + + +------+ + | Thyroid | Neg Hx | | | + + +------+ + + +------+--------+ + | Relation | Name | Status | Comments | + +------+--------+ + | Father | | Alive | | + +------+--------+ + | Mother | | Alive | | + +------+--------+ + Social History + + + +--------+ [...] recent travel history available. | + + Last Filed Vital Signs + + + [...] + + + + | Temperature | 36.7 C (98.1 F) | 02/24/2014 10:51 AM | | | | | PST [...] | | + + + + + Plan of Treatment + + + + + | Health Maintenance | Due Date | Last Done | Comments | + + + + + | Influenza (Flu) | | | | | vaccination (Season | 9 | | | | Ended) | | | | + + + + + | Pneumococcal | Aged Out | | No longer eligible | | vaccination | | | based on patient's | | | | | age to complete this | | | | | topic | + + + + + Results Not on filefrom Last 3 Months Insurance + +--------+ +--------+ + +------+ | Payer | Benefi | Subscriber | Effect | Phone | Address | Type | | | t Plan | ID | livan | | | | | | / | | Dates | | | | | | Group | | | | | | + +--------+ +--------+ + +------+ | [facility] PHP | xxxxxxxxxxx | 07/14/19 | [phone] | [address] | PPO | | | [employer] | | 12-Pre | [address] | [address] | | [address] | | sent | | [place], | | | | [place] | | | | [place] [address] | | + +--------+ +--------+ + +------+ + +--------+ +--------+ + + | Guarantor Name | Accoun | Relation to | Date | Phone | Billing Address | | | t Type | Patient | of | | | | | | | | | | + +--------+ +--------+ + + | Emma Mosqueda | Person | Self [birth year] | [address] | | | al/Fam | | 1986 | [phone] | [address] [place], | | | [place] | | | [address] (Home) | [place] [address] | + +--------+ +--------+ + +
--- OUTSIDE RECORDS SUMMARY | ~2018-06-28 | XMS | Encounter Summary ---
Demographics + + + | Address | [address] | | | [address] | | | [place] [address] | + + + | Home Phone | | + + + | Preferred Language | Unknown | + + + | Marital Status | Unmarried Domestic Partner | + + + | Muslim Affiliation | NON | + + + | Race | White | + + + | Ethnic Group | Not or | + + + Author + + + | Author | [facility] | + + + | Organization | [facility] | + + + | Address | Unknown | + + + | Phone | Unavailable | + + + Support + + +---------+ + | Name | Relationship | Address | Phone | + + +---------+ + | Roque Headings | ECON | Unknown | | + + +---------+ + Care Team Providers + +------+ + | Care Oracle Fusion Consultant Name | Role | Phone | + +------+ + | No Pcp Per Patient | PCP | Unavailable | + +------+ + Encounter Details +--------+ + + + + | Date | Type | Department | Care Team | Description | +--------+ + + + + | 03/31/ | Documentati | Orthopaedics at | Christopher Benitez, | | | 2014 | on | [facility] [address] | [address] | | | | | [address] | [facility] | | | | | [address] | [place], [place] | | | | | [place], [place] | [address] | | | | | [address] | [phone] | | | | | [phone] | | | +--------+ + + + [...]
--- OUTSIDE RECORDS SUMMARY | ~2018-06-28 | XMS | Encounter Summary ---
Demographics + + + | Address | [address] | | | [address] | | | [place] [address] | + + + | Home Phone | | + + + | Preferred Language | Unknown | + + + | Marital Status | Unmarried Domestic Partner | + + + | Moravian Affiliation | NON | + + + | Race | White | + + + | Ethnic Group | Not or | + + + Author + + + | Author | [facility] | + + + | Organization | [facility] | + + + | Address | Unknown | + + + | Phone | Unavailable | + + + Support + + +---------+ + | Name | Relationship | Address | Phone | + + +---------+ + | Roque Headings | ECON | Unknown | | + + +---------+ + Care Team Providers + +------+ + | Care Single Needle Tufting Machine Operator Name | Role | Phone | + +------+ + | No Pcp Per Patient | PCP | Unavailable | + +------+ + Reason for Referral Diagnostic Testing (Routine) +--------+--------+ + + + + | Status | Reason | Specialty | Diagnoses / | Referred By | Referred To | | | | | Procedures | Contact | Contact | +--------+--------+ + + + + | Closed | | Radiology | Diagnoses | Mirarchi, | [facility] | | | | | Hand pain, | Christopher Singh MD | [address] | | | | | left | [address] | [address] | | | | | Procedures | [facility] | [facility] | | | | | MRI WRIST | Rd | Mailcode: | | | | | LEFT WO | [facility] [place] | [address] | | | | | CONTRAST | [address] | [place] | | | | | | Phone: | Research | | | | | | [phone] | Center | | | | | | Fax: | [place], [place] | | | | | | [phone] | [address] | | | | | | | Phone: | | | | | | | [phone] | | | | | | | Fax: | | | | | | | [phone] | +--------+--------+ + + + + Reason for Visit Diagnostic Testing (Routine) +--------+--------+ + + + + | Status | Reason | Specialty | Diagnoses / | Referred By | Referred To | | | | | Procedures | Contact | Contact | +--------+--------+ + + + + | Closed | | Radiology | Diagnoses | Mirkeshawni, | [facility] | | | | | Hand pain, | Christopher Singh MD | [address] | | | | | left | [address] | [address] | | | | | Procedures | [facility] | [facility] | | | | | MRI WRIST | Rd | Mailcode: | | | | | LEFT WO | [place] | [address] | | | | | CONTRAST | [address] | [place] | | | | | | Phone: | Research | | | | | | [phone] | Center | | | | | | Fax: | [place], [place] | | | | | | [phone] | [address] | | | | | | | Phone: | | | | | | | [phone] | | | | | | | Fax: | | | | | | | [phone] | +--------+--------+ + + + + Encounter Details +--------+ + + + + | Date | Type | Department | Care Team | Description | +--------+ + + + + | 11/11/ | Hospital | Diagnostic Imaging | | | | 2013 | Encounter | Services at [facility] | | | | | | [address] [facility] | | | | | | [facility] | | | | | | Mailcode: [address] | | | | | | [facility] | | | | | | [place], [place] | | | | | | [address] | | | | | | [phone] | | | +--------+ + + + [...] | + +--------+ + + + | MRI WRIST LT WO CONT | Priori | 11/11/2013 | Hand pain, left | Results for this | | | ty | 6:16 PM | | procedure are in the | | | | PDT | | results section. | + +--------+ + + + documented in this encounter Results MRI WRIST LEFT WO CONTRAST (11/11/2013 6:16 PM PDT) + + + + + + | Component | Value | Ref Range | Performed | Pathologist | | | | | At | Signature | + + + + + + | MR WRIST LT | EXAM: MRI WRIST LEFT W/O | | | | | WO CONT | CONTRAST 11/11/13 | | | | | | 17:45:00 HISTORY: Pain. | | | | | | Evaluation for possible | | | | | | dorsal ganglion. | | | | | | COMPARISON: None. | | | | | | TECHNIQUE: The following | | | | | | MR pulse sequences were | | | | | | performed through the | | | | | | leftwrist:1. Coronal | | | | | | T1- and fat-suppressed | | | | | | intermediate TE-weighted | | | | | | FSE.2. Axial PD- and | | | | | | fat-suppressed | | | | | | intermediate TE-weighted | | | | | | FSE.3. Sagittal | | | | | | fat-suppressed | | | | | | intermediate TE-weighted | | | | | | FSE. FINDINGS: The | | | | | | positioning of the wrist | | | | | | is suboptimal. The | | | | | | wrist is in a supine | | | | | | positionwhich severely | | | | | | degrades evaluation of | | | | | | the triangular | | | | | | fibrocartilage. | | | | | | OSSEOUS/ARTICULAR: Along | | | | | | the volar aspect of the | | | | | | lunate there is a focus | | | | | | ofpatchy appearing | | | | | | marrow edema. There is | | | | | | overlying chondral | | | | | | thinning. There | | | | | | ischondral heterogeneity | | | | | | and thinning of the | | | | | | capitolunate and | | | | | | capitohamatearticular | | | | | | cartilage. No focal | | | | | | measurable defect is | | | | | | identified. Trace fluid | | | | | | isseen within the distal | | | | | | radioulnar joint. | | | | | | TRIANGULAR | | | | | | FIBROCARTILAGE | | | | | | COMPLEX: Severely | | | | | | degraded evaluation of | | | | | | thetriangle | | | | | | fibrocartilage. There is | | | | | | a suspected | | | | | | interstitial tear | | | | | | involving thestyloid | | | | | | attachment of the TFC, | | | | | | sagittal image 20. The | | | | | | volar band of the | | | | | | distalradioulnar | | | | | | ligament is not well | | | | | | seen and may be | | | | | | partially torn. The | | | | | | remainingcomponents of | | | | | | the triangle | | | | | | fibrocartilage complex | | | | | | are grossly intact. | | | | | | TENDONS: The flexor | | | | | | and extensor tendons are | | | | | | normal in signal and | | | | | | position.There is no | | | | | | tenosynovitis. | | | | | | MUSCLES: The muscles | | | | | | are normal in bulk and | | | | | | signal intensity. | | | | | | LIGAMENTS: There is | | | | | | intermediate signal | | | | | | involving the volar, | | | | | | membranous, anddorsal | | | | | | bands of the | | | | | | scapholunate ligament | | | | | | compatible with partial | | | | | | tear. Thelunotriquetral | | | | | | ligaments are intact. | | | | | | NERVES: No abnormality | | | | | | of the median, ulnar, or | | | | | | radial nerve is | | | | | | seen. Thecarpal | | | | | | tunnel and flexor | | | | | | retinaculum are normal | | | | | | in contour. | | | | | | MISCELLANEOUS: There is | | | | | | a 6 x 6 x 7 mm, AP x TR | | | | | | x CC, ganglion cyst | | | | | | along theulnar aspect of | | | | | | the piso-triquetral | | | | | | recess, axial image 17 | | | | | | on sagittal image23. | | | | | | IMPRESSION: | | | | | | Subcentimeter ganglion | | | | | | cyst along the ulnar | | | | | | aspect of the | | | | | | pisotriquetralrecess. | | | | | | Probable partial | | | | | | interstitial tear | | | | | | involving the styloid | | | | | | attachment of | | | | | | thetriangular | | | | | | fibrocartilage. | | | | | | Suspected partial | | | | | | tearing of the volar | | | | | | band of theDRUJ. | | | | | | Evaluation is degraded | | | | | | secondary to poor | | | | | | positioning of the | | | | | | wrist. Partial tear of | | | | | | the volar and dorsal | | | | | | bands of the | | | | | | scapholunate ligament. 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 | | | | | | Attending Radiologists: | | | | | | REGGIE OSEGUERA, | | | | | | MDAuthor: ALEJANDRA MURPHY, | | | | | | I have personally | | | | | | viewed this | | | | | | procedure/exam, reviewed | | | | | | this report, and | | | | | | madechanges to it where | | | | | | appropriate. | | | | | | Final/Electronically | | | | | | signed / REGGIE | | | | | | OUMAR 11/12/2013 16:47 | | | | | | PM Pending final | | | | | | approval / ALEJANDRA | | | | | | JEFFREY 11/12/2013 8:37 | | | | | | AM Preliminary / | | | | | | ALEJANDRA MURPHY 11/12/2013 | | | | | | 6:26 AM | | | | + + + + + + + + | Specimen | + + | | + + + +---------+ + + | Performing | Address | City/State/Zipcode | Phone Number | | Organization | | | | + +---------+ + + | [facility] | | | | | [facility]IOLOGY | | | | + +---------+ + + documented in this encounter Visit Diagnoses + + | Diagnosis | + + | Hand pain, left Pain in limb | + + documented in this encounter"
--- OUTSIDE RECORDS SUMMARY | ~2018-06-28 | XMS | Encounter Summary ---
Demographics + + + | Address | [address] | | | [address] | | | [place] [address] | + + + | Home Phone [...] Author + + + | Author | [facility] | + + + | Organization | [facility] | + [...] Team Providers + +------+ + | Care Attendant [facility] Name | Role | Phone | + +------+ + | No Pcp Per Patient | PCP | Unavailable | + +------+ + Encounter Details +--------+ + + + + | Date | Type | Department | Care Team | Description | +--------+ + + + + | 02/15/ | Telephone | Orthopaedics at | [place]o [place], | | | 2014 | | [facility] [address] | [address] | | | | | [address]: [address] | [address] | | | | | [facility] | [place], [place] | | | | | and Essie | [address] | | | | | Floor [place], [place] | [phone] | | | | | [address] | | | | | | [phone] | | | +--------+ + + + [...]
--- OUTSIDE RECORDS SUMMARY | ~2018-06-28 | XMS | Encounter Summary ---
Demographics + + + | Address | [address] | | | [address] | | | [place] [address] | + + + | Home Phone | | + + + | Preferred Language | Unknown | + + + | Marital Status | Unmarried Domestic Partner | + + + | Caodaism Affiliation | NON | + + + | Race | White | + + + | Ethnic Group | Not or | + + + Author + + + | Author | [facility] | + + + | Organization | [facility] [...] Team Providers + +------+ + | Care Reamer Hand Name | Role | Phone | + +------+ + | No Pcp Per Patient | PCP | Unavailable | + +------+ + Encounter Details +--------+ + + + + | Date | Type | Department | Care Team | Description | +--------+ + + + + | 02/16/ | Pharmacy | [facility] | | | | 2014 | Visit | [facility] | | | | | | [address] | | | | | | [place], [place] | | | | | | [address] | | | | | | [phone] | | | +--------+ + + + [...]
--- OUTSIDE RECORDS SUMMARY | ~2018-06-28 | XMS | Encounter Summary ---
Demographics + + + | Address | [address] | | | [address] | | | [place] [address] | + + + | Home Phone | | + + + | Preferred Language | Unknown | + + + | Marital Status | Unmarried Domestic Partner | + + + | Jew Affiliation | NON | + + + | Race | White | + + + | Ethnic Group | Not or | + + + Author + + + | Author | [email or web address] | + + + | Organization | [email or web address] | + + + | Address | Unknown | + + + | Phone | Unavailable | + + + Support + + +---------+ + | Name | Relationship | Address | Phone | + + +---------+ + | Roque Headings | ECON | Unknown | | + + +---------+ + Care Team Providers + +------+ + | Care Missile Pad Mechanic Name | Role | Phone | + +------+ + | No Pcp Per Patient | PCP | Unavailable | + +------+ + Encounter Details +--------+ + + + + | Date | Type | Department | Care Team | Description | +--------+ + + + + | 05/01/ | Telephone | Orthopaedics at | Christopher Benitez, | | | 2014 | | [facility] [address] | [address] | | | | | [address] | [facility] | | | | | [facility] [address] | [place], [place] | | | | | [place] | [address] | | | | | [address] | [phone] | | | | | [phone] | | | +--------+ + + + [...]
--- OUTSIDE RECORDS SUMMARY | ~2018-06-28 | XMS | Encounter Summary ---
Demographics + + + | Address | [address] | | | [address] | | | [place] [address] | + + + | Home Phone | | + + + | Preferred Language | Unknown | + + + | Marital Status | Unmarried Domestic Partner | + + + | Scientologist Affiliation | NON | + + + | Race | White | + + + | Ethnic Group | Not or | + + + Author + + + | Author | [facility] | + + + | Organization | [facility] | + + + | Address | Unknown | + + + | Phone | Unavailable | + + + Support + + +---------+ + | Name | Relationship | Address | Phone | + + +---------+ + | Roque Headings | ECON | Unknown | | + + +---------+ + Care Team Providers + +------+ + | Care Flap Presser Name | Role | Phone | + +------+ + | No Pcp Per Patient | PCP | Unavailable | + +------+ + Encounter Details +--------+ + + + + | Date | Type | Department | Care Team | Description | +--------+ + + + + | 05/01/ | Documentati | Orthopaedics at | Christopher Benitez, | | | 2014 | on | [facility] [address] | [address] | | | | | [address] | [facility] | | | | | [address] | [place], [place] | | | | | [place], [place] | [address] | | | | | [address] | [phone] | | | | | [phone] | | | +--------+ + + + [...]
--- OUTSIDE RECORDS SUMMARY | ~2018-06-28 | XMS | Encounter Summary ---
Demographics + + + | Address | [address] | | | [address] | | | [place] [address] | + + + | Home Phone | | + + + | Preferred Language | Unknown | + + + | Marital Status | Unmarried Domestic Partner | + + + | Sabianist Affiliation | NON | + + + | Race | White | + + + | Ethnic Group | Not or | + + + Author + + + | Author | [facility] | + + + | Organization | [facility] | + + + | Address | Unknown | + + + | Phone | Unavailable | + + + Support + + +---------+ + | Name | Relationship | Address | Phone | + + +---------+ + | Roque Headings | ECON | Unknown | | + + +---------+ + Care Team Providers + +------+ + | Care Welcome Hostess Name | Role | Phone | + [...] fibrocartilage | | | | Services at [facility] | [address] | complex of left | | | | [address] | [place], [place] | wrist (Primary Dx) | | | | [address] | [address] | | | | | Mailcode: CH3P [place] | | | | | | [facility] | | | | | | [address] [place], [address]st | | | | | | floor [place] | | | | | | [address] | | | | | | [phone] | | | +--------+---------+ + + + [...] Mirna Stevenson, OT - 04/03/2014 9:05 AM [id number] [facility] Date of : 1985 Start of care: 03/24/2014 Date of onset: 02/13/2014 Attending Surgeon: Christopher Benitez M.D. Occupational Therapist Aide(s): Eliseo Gil M.D. Preoperative Diagnosis(es): Left wrist pain and triangular fibrocartilaginous complex (TFCC ) injury Postoperative Diagnosis(es): Same Procedures Performed: 1. Left wrist arthroscopy, and debridement 2. Left triangular fibrocartilaginous complex (TFCC) arthroscopic repair. (41693) Referring/Attending Practitioner: Christopher Benitez Primary/Referral Diagnosis/ICD-9: 718.03 Injury of triangular fibrocartilage complex of left wrist Insurance: Payor: [employer] / Plan: [facility] / Product Type: PPO / Service period from: 03/24/2014 to: 04/21/2014 Number visits used/authorized: 04/21 [facility] HAND/OCCUPATIONAL THERAPY PROGRESS NOTE Name: Emma [...] | + +--------+ + + + | [facility] | Routin | 04/03/2014 | Injury [...]
--- OUTSIDE RECORDS SUMMARY | ~2018-06-28 | XMS | Encounter Summary ---
Demographics + + + | Address | [address] | | | [address] | | | [place] [address] | + + + | Home Phone | | + + + | Preferred Language | Unknown | + + + | Marital Status | Unmarried Domestic Partner | + + + | Hinduism Affiliation | NON | + + + | Race | White | + + + | Ethnic Group | Not or | + + + Author + + + | Author | [facility] | + + + | Organization | [facility] | + + + | Address | Unknown | + + + | Phone | Unavailable | + + + Support + + +---------+ + | Name | Relationship | Address | Phone | + + +---------+ + | Roque Headings | ECON | Unknown | | + + +---------+ + Care Team Providers + +------+ + | Care Kennel Hand Name | Role | Phone | [...] Description | +--------+---------+ + + + | 02/13/ | Surgery | [facility] | Christopher Benitez, | LEFT WRIST | | 2015 | [facility] | MD [address] | ARTHROSCOPY, | | | | and Healing Surgery | [address] | TRIANGULAR | | | | Center Admitting | [place], [place] | FIBROCARTILAGE | | | | Desk Located on the | [address] | REPAIR AND | | | | 4th floor [address] | [phone] | [address] | | | | [address] [place], | | | | | | [place] [address] | | | +--------+---------+ + + + [...] a patient satisfaction survey from "Zaynab Hanna". We w isabelld appreciate your feedback on the survey to [...] | + + + +---------+--------+ + | Brook[place]-3 Fatty | Take by mouth once | [...] PM PST)documented in this encounter Visit Diagnoses + + | Diagnosis | + + | Articular cartilage disorder, forearm Articular cartilage disorder, forearm | + + documented in this encounter Administered Medications + +--------+ [...] | | | | | NEEDED, Starting 02/13/14 at | | | | | | | 0957, Until Sun02/13/14 at 1709, | | | | | | | severe pain | | | | | | + +--------+ +------+------+------+ +---+---+ | | | +---+---+ documented in this encounter
--- OUTSIDE RECORDS SUMMARY | ~2018-06-28 | XMS | Encounter Summary ---
Demographics + + + | Address | [address] | | | [address] | | | [place] [address] | + + + | Home Phone [...] Author + + + | Author | [facility] | + + + | Organization | [facility] | + + + | Address | Unknown | + + + | Phone | Unavailable | + + + Support + + +---------+ + | Name | Relationship | Address | Phone | + + +---------+ + | Roque Headings | ECON | Unknown | | + + +---------+ + Care Team Providers + +------+ + | Care Merchandise Executive Name | Role | Phone | + +------+ + | No Pcp Per Patient | PCP | Unavailable | + +------+ + Encounter Details +--------+ + + + + | Date | Type | Department | Care Team | Description | +--------+ + + + + | 10/28/ | Hospital | Radiology/Imaging | | | | 2013 | Encounter | at [facility] | | | | | | [address] | | | | | | [facility] | | | | | | [place] | | | | | | [address] | | | | | | [phone] | | | +--------+ + + + [...] | + +--------+ + + + | X-RAY HAND 3 VIEWS | Routin | 2013 | Hand pain, left | Results for this | | LEFT | e | 10:49 AM | | procedure are in the | | | | PDT | | results section. | + +--------+ + + + documented in this encounter Results X-RAY HAND 3 VIEWS LEFT (2013 10:49 AM PDT) + + + + + + | Component | Value | Ref Range | Performed | Pathologist | | | | | At | Signature | + + + + + + | HAND 3 | STUDY: HAND 3 VIEWS LEFT | | | | | VIEWS LEFT | 10/28/13 10:49:00 | | | | | | HISTORY: Pain. | | | | | | COMPARISON: None. | | | | | | FINDINGS:There is no | | | | | | fracture, malalignment, | | | | | | or focal osseous | | | | | | destruction. The | | | | | | jointsare | | | | | | maintained. The soft | | | | | | tissues are normal. | | | | | | IMPRESSION: Normal exam. | | | | | | Attending Radiologists: | | | | | | YAN HANDY MDAuthor: | | | | | | YAN HANDY MD I have | | | | | | personally viewed this | | | | | | procedure/exam, reviewed | | | | | | this report, and | | | | | | madechanges to it where | | | | | | appropriate. | | | | | | Final/Electronically | | | | | | signed / YAN HANDY | | | | | | 2013 12:10 PM | | | | + + + + + + + + | Specimen | + + | | + + + +---------+ + + | Performing | Address | City/State/Zipcode | Phone Number | | Organization | | | | + +---------+ + + | [facility] | | | | | RADIOLOGY | | | | + +---------+ + + documented in this encounter Visit Diagnoses + + | Diagnosis | + + | Hand pain, left Pain in limb | + + documented in this encounter"
--- OUTSIDE RECORDS SUMMARY | ~2018-06-28 | XMS | Encounter Summary ---
Demographics + + + | Address | [address] | | | [address] | | | [place] [address] | + + + | Home Phone [...] Author + + + | Author | [facility] | + + + | Organization | [facility] | + + + | Address | Unknown | + + + | Phone | Unavailable | + + + Support + + +---------+ + | Name | Relationship | Address | Phone | + + +---------+ + | Roque Headings | ECON | Unknown | | + + +---------+ + Care Team Providers + +------+ + | Care Mine Safety Engineer Name | Role | Phone | + +------+ + | No Pcp Per Patient | PCP | Unavailable | + +------+ + Encounter Details +--------+ + + + + | Date | Type | Department | Care Team | Description | +--------+ + + + + | 03/31/ | Documentati | Orthopaedics at | Christopher Benitez, | | | 2014 | on | [facility] [address] | [address] | | | | | [address] | [facility] | | | | | [address] | [place], [place] | | | | | [place], [place] | [address] | | | | | [address] | [phone] | | | | | [phone] | | | +--------+ + + + [...]
--- OUTSIDE RECORDS SUMMARY | ~2018-06-28 | XMS | Encounter Summary ---
Demographics + + + | Address | [address] | | | [address] | | | [place] [address] | + + + | Home Phone [...] Author + + + | Author | [facility] [employer] [email or web address] | + + + | Organization | [facility] [employer] [email or web address] | + + + | Address | Unknown | + + + | Phone | Unavailable | + + + Support + + +---------+ + | Name | Relationship | Address | Phone | + + +---------+ + | Roque Headings | ECON | Unknown | | + + +---------+ + Care Team Providers + +------+ + | Care Authors Motivational Name | Role | Phone | + +------+ + | No Pcp Per Patient | PCP | Unavailable | + +------+ + Reason for Referral Consultation (Routine) +--------+--------+ + + + + [...] | | | | ge complex) | [place], [place] | [facility] | | | | | tear, | [address] | for Health | | | | | unspecified | Phone: | and Healing, | | | | | laterality, | [phone] | 1st floor | | | | | subsequent | Fax: | [place], [place] | | | | | encounter | [phone] | [address] | | | | | Procedures | | Phone: | | | | | OCC HAND | | [phone] | | | | | THERAPY | | Fax: | | | | | REFERRAL IN | | [phone] | | | | | [facility] | | | +--------+--------+ + + + + Reason for Visit + + + | Reason | Comments | + + + | Wrist pain | postop | + + + PROC - Outpatient [...] | | REQUEST TO | [place] | [address] | | | | | SURGERY | | Phone: | | | | | ENTERPRISE SECURITY ARCHITECT | | [phone] | | | | | [place] WRIST | | Fax: | | | | | ARTHROSCOP,E | | [phone] | | | | | XCIS TRIANG | | | | | | | CART | | | +--------+--------+ + + + + Encounter Details +--------+---------+ + + + | Date | Type | Department | Care Team | Description | +--------+---------+ + + + | 02/24/ | Office | Orthopaedics at | Elyssa Scott PA | TFCC (triangular | | 2015 | Visit | [facility] [address] | [address] | fibrocartilage | | | | [address] | [place], [place] | complex) tear, | | | | [address] | [address] | unspecified | | | | [place] | [phone] | laterality, | | | | [address] | | subsequent encounter | | | | [phone] | | (Primary Dx) | +--------+---------+ + + + Social History [...] + + + + | Weight | 78.9 kg (174 lb) | 02/24/2014 10:51 AM | | | | | PST | | + + + + + | Height | 177.8 cm (5' 10") | 02/24/2014 10:51 AM | | | | | PST | | + + + + + | Body Mass Index | 24.97 | 02/24/2014 10:51 AM | | | | | PST | | + + + + + documented in this encounter Progress Notes Elyssa Scott PA - 02/24/2014 12:12 PM Toni Mosqueda is a 28 y.o. female Patient of dr. peters status post the following procedure: Date: 02/13/2014 Attending Surgeon: Christopher Peters M.D. Plow Shaker(s): Eliseo Gil M.D. Preoperative Diagnosis(es): Left wrist pain and triangular fibrocartilaginous complex (TFCC ) injury Postoperative Diagnosis(es): Same Procedures Performed: 1. Left wrist arthroscopy, and debridement 2. Left triangular fibrocartilaginous complex (TFCC) arthroscopic repair. (50548) Doing well, denies fevers or chills Wounds look good, sutures removed Minimal swelling, finger motion intact Subjective decreased sensation over index mcp area Cap refill normal Per procedure and protocol patient placed into long arm fiberglass cast today with cast car e instructions Maintain cast for four weeks, then return for cast off and brace with OT to start protocol therapy Narcotics refilled Call sooner with issues questions or concerns She understands the agrees with current planElectronically signed by KISHA Rios at 12:16 PM PSTdocumented in this encounter Plan of Treatment Not on filedocumented as of this encounter Procedures + +--------+ + + + | Procedure Name | Priori | Date/Time | Associated Diagnosis | Comments | | | ty | | | | + +--------+ + + + | [place] YISEL SUP LONG | Routin | 02/24/2014 | TFCC (triangular | | | ARM ADULT FBRG | e | 12:15 PM | fibrocartilage | | | | | PST | complex) tear, | | | | | | unspecified | | | | | | laterality, | | | | | | subsequent encounter | | + +--------+ + + + | [place] APPLY LONG ARM | Routin | 02/24/2014 | TFCC (triangular | | | CAST | e | 12:15 PM | fibrocartilage | | | | | PST | complex) tear, | | | | | | unspecified | | | | | | laterality, | | | | | | subsequent encounter | | + +--------+ + + + documented in this encounter Visit Diagnoses + + | Diagnosis | + + | TFCC (triangular fibrocartilage complex) tear, unspecified laterality, subsequent | | encounter - Primary | + + documented in this encounter
--- OUTSIDE RECORDS SUMMARY | ~2018-06-28 | XMS | Encounter Summary ---
Demographics + + + | Address | [address] | | | [address] | | | [place] [address] | + + + | Home Phone | | + + + | Preferred Language | Unknown | + + + | Marital Status | Unmarried Domestic Partner | + + + | Mandaeism Affiliation | NON | + + + | Race | White | + + + | Ethnic Group | Not or | + + + Author + + + | Author | [facility] [employer] [facility] | + + + | Organization | [facility] [employer] [facility] | + + + | Address | Unknown | + + + | Phone | Unavailable | + + + Support + + +---------+ + | Name | Relationship | Address | Phone | + + +---------+ + | Roque Headings | ECON | Unknown | | + + +---------+ + Care Team Providers + +------+ + | Care Laborer Wood Preserving Plant Name | Role | Phone | + +------+ + | No Pcp Per Patient | PCP | Unavailable | + +------+ + Encounter Details +--------+ + + + + | Date | Type | Department | Care Team | Description | +--------+ + + + + | 04/10/ | Telephone | Orthopaedics at | Christopher Benitez, | | | 2014 | | [facility] [address] | [address] | | | | | [address] | [facility] | | | | | [facility] [address] | [place], [place] | | | | | [place], [place] | [address] | | | | | [address] | [phone] | | | | | [phone] | | | +--------+ + + + [...]
--- OUTSIDE RECORDS SUMMARY | ~2018-06-28 | XMS | Encounter Summary ---
Demographics + + + | Address | [address] | | | [address] | | | [place] [address] | + + + | Home Phone [...] Author + + + | Author | [email or web address] | + + + | Organization | [facility] [email or web address] | + [...] Team Providers + +------+ + | Care Data Warehouse Analyst Name | Role | Phone | + +------+ + | No Pcp Per Patient | PCP | Unavailable | + +------+ + Encounter Details +--------+ + + + + | Date | Type | Department | Care Team | Description | +--------+ + + + + | 02/03/ | Orders Only | Preoperative | Lynn Barron T, | | | 2013 | | Medicine Clinic at | ACCOUNTING ASSISTANT [address] | | | | | MPV 4th Floor Day | Ave [facility] [place] | | | | | Stay [address] [facility] | [address] | | | | | [facility] | [phone] | | | | | Mailcode: UHN65 | | | | | | [address] | | | | | | [address] [facility] [place] | | | | | | [address] | | | | | | [phone] | | | +--------+ + + + [...]
--- OUTSIDE RECORDS SUMMARY | ~2018-06-28 | XMS | Encounter Summary ---
Demographics + + + | Address | [address] | | | [address] | | | [place] [address] | + + + | Home Phone | | + + + | Preferred Language | Unknown | + + + | Marital Status | Unmarried Domestic Partner | + + + | Worship Affiliation | NON | + + + | Race | White | + + + | Ethnic Group | Not or | + + + Author + + + | Author | [facility] | + + + | Organization | [facility] | + + + | Address | Unknown | + + + | Phone | Unavailable | + + + Support + + +---------+ + | Name | Relationship | Address | Phone | + + +---------+ + | Roque Headings | ECON | Unknown | | + + +---------+ + Care Team Providers + +------+ + | Care Color Room Attendant Name | Role | Phone [...] | +--------+ + + + + | 03/20/ | Telephone | Orthopaedics at | Christopher Benitez, | Other | | 2015 | | [facility] [address] | [address] | | | | | [address] | [address] | | | | | [address] | [place], [place] | | | | | [place], [place] | [address] | | | | | [address] | [phone] | | | | | [phone] | | | +--------+ + + + [...]
--- OUTSIDE RECORDS SUMMARY | ~2018-06-28 | XMS | Encounter Summary ---
Demographics + + + | Address | [address] | | | [address] | | | [place] [address] | + + + | Home Phone | | + + + | Preferred Language | Unknown | + + + | Marital Status | Unmarried Domestic Partner | + + + | Mormonism Affiliation | NON | + + + | Race | White | + + + | Ethnic Group | Not or | + + + Author + + + | Author | [facility] [employer] [facility] | + + + | Organization | [facility] [employer] [facility] | + + + | Address | Unknown | + + + | Phone | Unavailable | + + + Support + + +---------+ + | Name | Relationship | Address | Phone | + + +---------+ + | Roque Headings | ECON | Unknown | | + + +---------+ + Care Team Providers + +------+ + | Care Operations Officer Name | Role | Phone | [...] | | REQUEST [place] | [place] | [address] | | | | | SURGERY | | Phone: | | | | | INTERCEPTOR OPERATOR | | [phone] | | | | | [place] WRIST | | Fax: | | | | | ARTHROSCOP,E | | [phone] | | | | | XCIS TRIANG [...] | | 2015 | Visit | [facility] [address] | [address] | fibrocartilage | | | | [address] | [address] | complex of left | | | | [address] | [place], [place] | wrist (Primary Dx) | | | | [place], [place] | [address] | | | | | [address] | [phone] | | | | | [phone] | | | +--------+---------+ + + + [...] of care. 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
--- OUTSIDE RECORDS SUMMARY | ~2018-06-28 | XMS | Encounter Summary ---
Demographics + + + | Address | [address] | | | [address] | | | [place] [address] | + + + | Home Phone | | + + + | Preferred Language | Unknown | + + + | Marital Status | Unmarried Domestic Partner | + + + | Restorationism Affiliation | NON | + + + | Race | White | + + + | Ethnic Group | Not or | + + + Author + + + | Author | [facility] [employer] [facility] | + + + | Organization | [facility] [employer] [facility] | + + + | Address | Unknown | + + + | Phone | Unavailable | + + + Support + + +---------+ + | Name | Relationship | Address | Phone | + + +---------+ + | Roque Headings | ECON | Unknown | | + + +---------+ + Care Team Providers + +------+ + | Care Airplane Cover Maker Name | Role | Phone | + [...] | | | | | Procedures | [facility] | [facility] | | | | | MRI WRIST | Rd | Mailcode: | | | | | LEFT WO | [facility] [place] | [address] | | | | | CONTRAST | [address] | [place] | | | | | | Phone: | Research | | | | | | [phone] | Center | | | | | | Fax: | [place], [place] | | | | | | [phone] | [address] | | | | | | | Phone: | | | | | | | [phone] | | | | | | | Fax: | | | | | | | [phone] | +--------+--------+ + + + + Reason for Visit + + + | Reason | Comments | + + + | Hand Pain | New Visit | + + + Office Visit - [...] | pain post | Provider Per | [address] | | | | | spiral fx sx | Patient NO | [address] | | | | | | REFERRING | Rd [place], | | | | | | PROVIDER PER | [place] | | | | | | [place] | [address] | | | | | | | Phone: | | | | | | | [phone] | | | | | | | Fax: | | | | | | | [phone] | +--------+--------+ + + + + Encounter Details +--------+---------+ + + + | Date | Type | Department | Care Team | Description | +--------+---------+ + + + | 10/28/ | Office | Orthopaedics at | Christopher Benitez, | Hand pain, left | | 2013 | Visit | [facility] [address] | [address] | (Primary Dx) | | | | [address] | [address] | | | | | [address] | [place], [place] | | | | | [place] | [address] | | | | | [address] | [phone] | | | | | [phone] | | | +--------+---------+ + + + [...] + + + | Blood Pressure | 114/62 | 2013 10:51 AM | | | | | PDT | | + + + + + | Pulse | 71 | 2013 10:51 AM | | | | | PDT | | + + + + + [...] Weight | 74.8 kg (165 lb) | 2013 10:51 AM | | | | | PDT | | + + + + + | Height | 177.8 cm (5' 10") | 2013 10:51 AM | | | | | PDT | | + + + + + | Body Mass Index | 23.68 | 2013 10:51 AM | | | | | PDT | | + + + + + documented in this encounter Progress Notes Christopher Benitez MD - 2013 10:59 AM PDTFormatting of this note might be different fr om the original. Chief Complaint: Left hand pain History of Present Illness: Emma Mosqueda is a 28 y.o. lhd female. The problem lis henna above as the chief complaint started 2011 and was due to nathaniel soares. Pain is a 7/10. She has had two surgeries on this hand. It is worse with use and improved with rest . She notes weakness and deniels numbness in the hand. She has never had hand therpay. Shay rgery was done by Dr. Toi Mcnamara. She broke the long and ring fingers. She had screws placed and then removed with tendon r elease. 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 No current facility-administered medications on file prior [...] where noted below Left hand well healed scar. Full ROM of fingers Lacks 20 degrees of extension on left palpable small nodule, possible ganglion of left wrist over SL ligament area IMAGING/DIAGNOSTIC STUDIES: 2013 left hand/wrist - no obvious bone abnormalities. W ell healed long/ring fractures. IMPRESSION/PLAN: Left wrist - possible ganglion. I will get an MRI to evaluate this and casey ve her return with the images. documented in this e ncounter Plan of Treatment Not on filedocumented as of this encounter Results MRI WRIST LEFT WO [...] | | + +---------+ + + | [facility] DEPARTMENT OF | | | | | RADIOLOGY | | | | + +---------+ + + X-RAY HAND 3 VIEWS LEFT (2013 10:49 [...] | | | | | | YAN HADNY MD I have | | | | [...] | | + +---------+ + + | [facility] DEPARTMENT OF | | | | | RADIOLOGY | | | | + +---------+ + + documented in this encounter Visit Diagnoses + + | Diagnosis | + + | Hand pain, left - Primary Pain in limb | + + documented in this encounter
--- OUTSIDE RECORDS SUMMARY | ~2018-06-28 | XMS | Encounter Summary ---
Demographics + + + | Address | [address] | | | [address] | | | [place] [address] | + + + | Home Phone | | + + + | Preferred Language | Unknown | + + + | Marital Status | Unmarried Domestic Partner | + + + | Jewish Affiliation | NON | + + + | Race | White | + + + | Ethnic Group | Not or | + + + Author + + + | Author | [facility] [employer] [facility] | + + + | Organization | [facility] [employer] [facility] | [...] Team Providers + +------+ + | Care Sexual Assault Response Coordinator Name | Role | Phone | + [...] | | | | | Procedures | [facility] | [facility] | | | | | MRI WRIST | Rd | Mailcode: | | | | | LEFT WO | [facility] [place] | [address] | | | | | CONTRAST | [address] | [place] | | | | | | Phone: | Research | | | | | | [phone] | Center | | | | | | Fax: | [place], [place] | | | | | | [phone] | [address] | | | | | | | Phone: | | | | | | | [phone] | | | | | | | Fax: | | | | | | | [phone] | +--------+--------+ + + + + Reason [...] | | | | REFERRING | Rd [place], | | | | | | PROVIDER PER | [place] | | | | | | [place] | [address] | | | | | | | Phone: | | | | | | | [phone] | | | | | | | Fax: | | | | | | | [phone] | +--------+--------+ + + + + Encounter Details +--------+---------+ + + + | Date | Type | Department | Care Team | Description | +--------+---------+ + + + | 10/28/ | Office | Orthopaedics at | Christopher Benitez, | Hand pain, left | | 2013 | Visit | [facility] [address] | [address] | (Primary Dx) | | | | [address] | [address] | | | | | [address] | [place], [place] | | | | | [place] | [address] | | | | | [address] | [phone] | | | | | [phone] | | | +--------+---------+ + + + [...] then removed with tendon r elease. 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
--- OUTSIDE RECORDS SUMMARY | ~2018-06-28 | XMS | Encounter Summary ---
Demographics + + + | Address | [address] | | | [address] | | | [place] [address] | + + + | Home Phone | | + + + | Preferred Language | Unknown | + + + | Marital Status | Unmarried Domestic Partner | + + + | Faith Affiliation | NON | + + + | Race | White | + + + | Ethnic Group | Not or | + + + Author + + + | Author | [facility] [employer] [facility] | + + + | Organization | [facility] [employer] [facility] | + + + | Address | Unknown | + + + | Phone | Unavailable | + + + Support + + +---------+ + | Name | Relationship | Address | Phone | + + +---------+ + | Roque Headings | ECON | Unknown | | + + +---------+ + Care Team Providers + +------+ + | Care Color Weigher Name | Role | Phone | + +------+ + | No Pcp Per Patient | PCP | Unavailable | + +------+ + Encounter Details +--------+ + + + + | Date | Type | Department | Care Team | Description | +--------+ + + + + | 02/16/ | Pharmacy | [facility] | | | | 2014 | Visit | [facility] | | | | | | [address] | | | | | | [place], [place] | | | | | | [address] | | | | | | [phone] | | | +--------+ + + + [...]
--- OUTSIDE RECORDS SUMMARY | ~2018-06-28 | XMS | Encounter Summary ---
Demographics + + + | Address | [address] | | | [address] | | | [place] [address] | + + + | Home Phone | | + + + | Preferred Language | Unknown | + + + | Marital Status | Unmarried Domestic Partner | + + + | Catholic Affiliation | NON | + + + | Race | White | + + + | Ethnic Group | Not or | + + + Author + + + | Author | [facility] [employer] [facility] | + + + | Organization | [facility] [employer] [facility] | + + + | Address | Unknown | + + + | Phone | Unavailable | + + + Support + + +---------+ + | Name | Relationship | Address | Phone | + + +---------+ + | Roque Headings | ECON | Unknown | | + + +---------+ + Care Team Providers + +------+ + | Care Financial Brokers Name | Role | Phone | + [...] | 2015 | anned | [address] | | | | | | [facility] | | | | | | [place], [place] | | | | | | [address] | | | +--------+ + + + [...]
--- OUTSIDE RECORDS SUMMARY | ~2018-06-28 | XMS | Encounter Summary ---
Demographics + + + | Address | [address] | | | [address] | | | [place] [address] | + + + | Home Phone | | + + + | Preferred Language | Unknown | + + + | Marital Status | Unmarried Domestic Partner | + + + | Druze Affiliation | NON | + + + | Race | White | + + + | Ethnic Group | Not or | + + + Author + + + | Author | [facility] [employer] [facility] | + + + | Organization | [facility] [employer] [facility] | + + + | Address | Unknown | + + + | Phone | Unavailable | + + + Support + + +---------+ + | Name | Relationship | Address | Phone | + + +---------+ + | Roque Headings | ECON | Unknown | | + + +---------+ + Care Team Providers + +------+ + | Care Longwall Foreman Name | Role | Phone | + [...] [id number] | | | | | | [facility] | | | | | | and Healing, 5th | | | | | | floor [place], [place] | | | | | | [address] | | | | | | [phone] | | | +--------+ + + + [...] | | | | of white skin [id number]. | | | | | | The specimen isoriented | | | | | | by a suture at one | | | | | | apex, which is | | | | | | designated as left apex | | | | | | by [facility]. With | | | | | | [...] + + + | [facility] | [address] | [place] [address] | | | DERMATOPATHOLOGY | [address] | | | + + + + + documented in this encounter Visit Diagnoses Not on filedocumented in this encounter"
--- OUTSIDE RECORDS SUMMARY | ~2018-06-28 | XMS | Encounter Summary ---
Demographics + + + | Address | [address] | | | [address] | | | [place] [address] | + + + | Home Phone | | + + + | Preferred Language | Unknown | + + + | Marital Status | Unmarried Domestic Partner | + + + | Synagogue Affiliation | NON | + + + | Race | White | + + + | Ethnic Group | Not or | + + + Author + + + | Author | [facility] [employer] [facility] | + + + | Organization | [facility] [employer] [facility] | [...] Team Providers + +------+ + | Care Off Premise Service Representative Name | Role | Phone | + [...] 2013 | | Medicine Clinic at | TENNIS BALL COVERER HAND [address] | | | | | MPV 4th Floor Day | Ave [facility] [place] | | | | | Stay [address] [facility] | [address] | | | | | [facility] | [phone] | | | | | Mailcode: [id number] | | | | | | [address] | | | | | | [address] [facility] [place] | | | | | | [address] | | | | | | [phone] | | | +--------+ + + + [...]
--- OUTSIDE RECORDS SUMMARY | ~2018-06-28 | XMS | Encounter Summary ---
Demographics + + + | Address | [address] | | | [address] | | | [place] [address] | + + + | Home Phone | | + + + | Preferred Language | Unknown | + + + | Marital Status | Unmarried Domestic Partner | + + + | Adventist Affiliation | NON | + + + | Race | White | + + + | Ethnic Group | Not or | + + + Author + + + | Author | [facility] [facility] | + + + | Organization | [facility] [facility] | + + + | Address | Unknown | + + + | Phone | Unavailable | + + + Support + + +---------+ + | Name | Relationship | Address | Phone | + + +---------+ + | Roque Headings | ECON | Unknown | | + + +---------+ + Care Team Providers + +------+ + | Care Level Vial Marker Name | Role | Phone | + [...] | | | | ge complex) | [place], [place] | [facility] | | | | | tear, | [address] | for Health | | | | | unspecified | Phone: | and Healing, | | | | | laterality, | [phone] | 1st floor | | | | | subsequent | Fax: | [place], [place] | | | | | encounter | [phone] | [phone] | | | | | Procedures | | Phone: | | | | | OCC HAND | | [phone] | | | | | THERAPY | | Fax: | | | | | REFERRAL IN | | [phone] | | | | | [facility] | [...] | | REQUEST TO | [place] | [address] | | | | | SURGERY | | Phone: | | | | | STREET LIGHT SERVICER HELPER | | [phone] | | | | | AK WRIST | | Fax: | | | | | ARTHROSCOP,E | | [phone] | | | | | XCIS TRIANG [...] (triangular | | 2015 | Visit | [facility] [address] | [address] | fibrocartilage | | | | [address] | [place], [place] | complex) tear, | | | | [address] | [address] | unspecified | | | | [place] | [phone] | laterality, | | | | [address] | | subsequent encounter | | | | [phone] | | (Primary Dx) | +--------+---------+ + [...] Date: 02/13/2014 Attending Surgeon: Christopher Peters M.D. Supervisor Stitching Department(s): Eliseo Gil M.D. Preoperative Diagnosis(es): Left wrist pain and triangular fibrocartilaginous complex (TFCC ) injury Postoperative Diagnosis(es): Same Procedures Performed: 1. Left wrist arthroscopy, and debridement 2. Left triangular fibrocartilaginous complex (TFCC) arthroscopic repair. (88650) Doing well, denies fevers or chills Wounds [...] + +--------+ + + + | AK YISEL SUP LONG | Routin | 02/24/2014 | TFCC (triangular | | | ARM ADULT FBRG | e | 12:15 PM | fibrocartilage | | | | | PST | complex) tear, | | | | | | unspecified | | | | | | laterality, | | | | | | subsequent encounter | | + +--------+ + + + | AK APPLY LONG ARM | Routin | 02/24/2014 [...]
--- OUTSIDE RECORDS SUMMARY | ~2018-06-28 | XMS | Encounter Summary ---
Demographics + + + | Address | [address] | | | [address] | | | [place] [address] | + + + | Home Phone [...] Author + + + | Author | [facility] | + + + | Organization | [facility] | + + + | Address | Unknown | + + + | Phone | Unavailable | + + + Support + + +---------+ + | Name | Relationship | Address | Phone | + + +---------+ + | Roque Headings | ECON | Unknown | | + + +---------+ + Care Team Providers + +------+ + | Care Bending Press Operator Name | Role | Phone | [...] FMLA | | 2013 | on | [facility] [address] | [address] | | | | | [place] [address] | [address] | | | | | [address] | [place], [place] | | | | | [place], [place] | [address] | | | | | [address] | [phone] | | | | | [phone] | | | +--------+ + + + [...]
--- OUTSIDE RECORDS SUMMARY | ~2018-06-28 | XMS | Encounter Summary ---
Demographics + + + | Address | [address] | | | [address] | | | [place] [address] | + + + | Home Phone [...] + + + | Author | [facility] | + + + | Organization | [facility] | + + + | Address | Unknown | + + + | Phone | Unavailable | + + + Support + + +---------+ + | Name | Relationship | Address | Phone | + + +---------+ + | Roque Headings | ECON | Unknown | | + + +---------+ + Care Team Providers + +------+ + | Care Conventions Assistant Name | Role | Phone | + [...] | | | | ge complex) | [place], [place] | [facility] | | | | | tear, | [address] | for Health | | | | | unspecified | Phone: | and Healing, | | | | | laterality, | [phone] | 1st floor | | | | | subsequent | Fax: | [place], [place] | | | | | encounter | [phone] | [address] | | | | | Procedures | | Phone: | | | | | OCC HAND | | [phone] | | | | | THERAPY | | Fax: | | | | | REFERRAL IN | | [phone] | | | | | [facility] | [...] fibrocartilage | | | | Services at [place] | [facility] | complex of left | | | | [address] | [address] [place], [place] | wrist (Primary Dx) | | | | [address] | [id number] | | | | | Mailcode: [facility] | | | | | | [facility] | | | | | | [address], 1st | | | | | | floor [place] | | | | | | [address] | | | | | | [phone] | | | +--------+---------+ + + + [...] Ochoa, OT - 03/24/2014 10:54 AM PST [id number] EMMA MOSQUEDA Date of : 1985 Start of care: 03/24/2014 Date of onset: 02/13/2014 Attending Surgeon: Christopher Benitez M.D. Texture Artist(s): Eliseo Gil M.D. Preoperative Diagnosis(es): Left wrist pain and triangular fibrocartilaginous complex (TFCC ) injury Postoperative Diagnosis(es): Same Procedures Performed: 1. Left wrist arthroscopy, and debridement 2. Left triangular fibrocartilaginous complex (TFCC) arthroscopic repair. 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 female who presents with p ostop left hand and UE stiffness. 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 Pt. Enjoys 2degreesmobile arts ([employer] and cage fighting) as hobbies. Prior/concurrent treatment: [...] mouth once daily., Disp: , Rf l: [place]-3 Fatty Acids-Vitamin E (FISH OIL) 1,000 mg oral capsule, Take by mouth once daily., Disp: , Rfl: Precaution/special problems: healing TFCC repair Pain level (0-10): Patient reports a pain level of today. 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 RYAN Hernandez OT [facility] AT [address] Mailcode: [address] [address] documented in this encounter Plan of Treatment Not on filedocumented as of this encounter Procedures + +--------+ + + + | Procedure Name | Priori | Date/Time | Associated Diagnosis | Comments | | | ty | | | | + +--------+ + + + | ID THERAPEUTIC | Routin | 03/24/2014 | Injury of | | | EXERCISES | e | 12:37 PM | triangular | | | | | PST | fibrocartilage | | | | | | complex of left | | | | | | wrist | | + +--------+ + + + | ID OCCUPATIONAL | Routin | 03/24/2014 | Injury [...]
--- OUTSIDE RECORDS SUMMARY | ~2018-06-28 | XMS | Encounter Summary ---
Demographics + + + | Address | [address] | | | [address] | | | [place] [address] | + + + | Home Phone [...] Author + + + | Author | [facility] [employer] [facility] | + + + | Organization | [facility] [employer] [facility] | + [...] Team Providers + +------+ + | Care Chip Frier Name | Role | Phone | + +------+ + | No Pcp Per Patient | PCP | Unavailable | + +------+ + Encounter Details +--------+ + + + + | Date | Type | Department | Care Team | Description | +--------+ + + + + | 02/15/ | Telephone | Orthopaedics at | [place], | | | 2014 | | [facility] [address] | [address] | | | | | [place] Mailcode: CH12A | [address] | | | | | [facility] | [place], [place] | | | | | and Essie | [address] | | | | | Floor [place], [place] | [phone] | | | | | [address] | | | | | | [phone] | | | +--------+ + + + [...]
--- OUTSIDE RECORDS SUMMARY | ~2018-06-28 | XMS | Encounter Summary ---
Demographics + + + | Address | [address] | | | [address] | | | [place] [address] | + + + | Home Phone [...] + + + | Author | [facility] | + + + | Organization | [facility] | + + + | Address | Unknown | + + + | Phone | Unavailable | + + + Support + + +---------+ + | Name | Relationship | Address | Phone | + + +---------+ + | Roque Headings | ECON | Unknown | | + + +---------+ + Care Team Providers + +------+ + | Care Drapery Hanger Name | Role | Phone | + +------+ + | No Pcp Per Patient | PCP | Unavailable | + +------+ + Encounter Details +--------+ + + + + | Date | Type | Department | Care Team | Description | +--------+ + + + + | 02/16/ | Documentati | Orthopaedics at | Christopher Benitez, | | | 2014 | on | [facility] [address] | [address] | | | | | [address] | [facility] | | | | | [address] | [place], [place] | | | | | [place], [place] | [address] | | | | | [address] | [phone] | | | | | [phone] | | | +--------+ + + + [...]
--- OUTSIDE RECORDS SUMMARY | ~2018-06-28 | XMS | Encounter Summary ---
Demographics + + + | Address | [address] | | | [address] | | | [place] [address] | + + + | Home Phone [...] + + + | Author | [facility] | + + + | Organization | [facility] | + + [...] Providers + +------+ + | Care Registered Dental Assistant Rda Name | Role | Phone | + [...] | 2014 | on | [facility] [address] | [address] | | | | | [address] | [facility] | | | | | [address] | [place], [place] | | | | | [place], [place] | [address] | | | | | [address] | [phone] | | | | | [phone] | | | +--------+ + + + [...]
--- OUTSIDE RECORDS SUMMARY | ~2018-06-28 | XMS | Encounter Summary ---
Demographics + + + | Address | [address] | | | [address] | | | [place] [address] | + + + | Home Phone | | + + + | Preferred Language | Unknown | + + + | Marital Status | Unmarried Domestic Partner | + + + | Pentecostalism Affiliation | NON | + + + | Race | White | + + + | Ethnic Group | Not or | + + + Author + + + | Author | [facility] | + + + | Organization | [facility] | + + + | Address | Unknown | + + + | Phone | Unavailable | + + + Support + + +---------+ + | Name | Relationship | Address | Phone | + + +---------+ + | Roque Headings | ECON | Unknown | | + + +---------+ + Care Team Providers + +------+ + | Care Network Planner Name | Role | Phone | + +------+ + | No Pcp Per Patient | PCP | Unavailable | + +------+ + Reason for Visit + + + | Reason | Comments | + + + | Wrist pain | cast change | + + + Encounter Details +--------+---------+ + + + | Date | Type | Department | Care Team | Description | +--------+---------+ + + + | 03/20/ | Office | Orthopaedics at | Charlotte Jaime, | TFCC (triangular | | 2015 | Visit | [facility] [address] | ELECTRICAL DRAFTER [address] | fibrocartilage | | | | [address] | [address] | complex) injury, | | | | [address] | [place], [place] | left (Primary Dx) | | | | [place], [place] | [address] | | | | | [address] | [phone] | | | | | [phone] | | | +--------+---------+ + + + [...] documented as of this encounter Progress Notes Charlotte Jaime FNP - 03/20/2014 4:13 PM [facility] Date of Surgery: 02/13/2014 Surgery performed: L wrist arthroscopy and debridement and left triangular fibrocartilagino us complex (TFCC) arthroscopic repair Last Clinic visit: 02/24/14 at 11:00 am S:Ms. Emma Mosqueda is a 28 year old female 5 weeks SP .TFCC. She is here because sh e wants a cast change. She thinks she has an elbow wound from the cast that is keeping her from sleeping at night. Patient wants splint to replace cast. She reports that she quit smoking about 5 years ago. Her smoking use included Cigarettes. She has a .9 pack-year smoking history. She has never used smokeless tobacco. O: Vitals: There were no vitals taken for this visit. General- Awake & alert female; No acute distress; Alert & oriented to person/place/time; Ap propriate pleasant affect LUE:Holding arm at 90 degrees but she has good extension. Elbow is dry but skin is intact, no skin breakdown. Finger motion good, hand is slightly swollen. Radial pulse palpated ASSESSMENT: Ms. Emma Mosqueda is a 28 year old female 5 weeks s/p above mentioned pro cedure. PLAN: 1. Elyssa Scott contacted who said a splint in place of cast is OK 2. FU with UE as scheduled [facility] [place] [address] [address] [facility] [address] [place] [address] No orders of the defined types were placed in this encounter. arcel Peter 03/20 4:02 PM PSTRemoved cast from LUE per DARA Mitchell. Pt tolerated well. Placed w rist brace per Elyssa Scott PA-C. Advised Pt against supination, keeping wrist in neutral po sition, and advised she attend her appointment Sunday for further eval and OT. Pt states un derstanding. documented in th is encounter Plan of Treatment Not on filedocumented as of this encounter Procedures + +--------+ + + + | Procedure Name | Priori | Date/Time | Associated Diagnosis | Comments | | | ty | | | | + +--------+ + + + | ORDERS OTHER | | 03/20/2014 | | Results for this | | | | 12:00 AM | | procedure are in the | | | | PST | | results section. | + +--------+ + + + documented in this encounter Results ORDERS OTHER (03/20/2014 12:00 AM PST) + + + | Narrative | Performed At | + + + | | | | | | + + + + + | Procedure Note | + + | Iveth Guerra - 04/14/2014 3:06 PM PST | + + documented in this encounter Visit Diagnoses + + | Diagnosis | + + | TFCC (triangular fibrocartilage complex) injury, left - Primary | + + documented in this encounter"
--- OUTSIDE RECORDS SUMMARY | ~2018-06-28 | XMS | Encounter Summary ---
Demographics + + + | Address | [address] | | | [address] | | | [place] [address] | + + + | Home Phone | | + + + | Preferred Language | Unknown | + + + | Marital Status | Unmarried Domestic Partner | + + + | Adventism Affiliation | NON | + + + | Race | White | + + + | Ethnic Group | Not or | + + + Author + + + | Author | [facility] [employer] [facility] | + + + | Organization | [facility] [employer] [facility] | + + + | Address | Unknown | + + + | Phone | Unavailable | + + + Support + + +---------+ + | Name | Relationship | Address | Phone | + + +---------+ + | Roque Headings | ECON | Unknown | | + + +---------+ + Care Team Providers + +------+ + | Care Flap Curer Name | Role | Phone | + [...] | 2014 | on | [facility] [address] | [address] | | | | | [address] | [facility] | | | | | [address] | [place], [place] | | | | | [place], [place] | [address] | | | | | [address] | [phone] | | | | | [phone] | | | +--------+ + + + [...]
--- OUTSIDE RECORDS SUMMARY | ~2018-06-28 | XMS | Encounter Summary ---
Demographics + + + | Address | [address] | | | [address] | | | [place] [address] | + + + | Home Phone [...] Author + + + | Author | [facility] [employer] [facility] | + + + | Organization | [facility] [employer] [facility] | + + + | Address | Unknown | + + + | Phone | Unavailable | + + + Support + + +---------+ + | Name | Relationship | Address | Phone | + + +---------+ + | Roque Headings | ECON | Unknown | | + + +---------+ + Care Team Providers + +------+ + | Care Addresser Name | Role | Phone | + +------+ + | No Pcp Per Patient | PCP | Unavailable | + +------+ + Encounter Details +--------+ + + + + | Date | Type | Department | Care Team | Description | +--------+ + + + + | 04/10/ | Telephone | Orthopaedics at | Christopher Benitez, | | | 2014 | | [facility] [address] | [address] | | | | | [place] [address] | [facility] | | | | | [facility] [address] | [place], [place] | | | | | [place], [place] | [address] | | | | | [address] | [phone] | | | | | [phone] | | | +--------+ + + + [...]
--- OUTSIDE RECORDS SUMMARY | ~2018-06-28 | XMS | Encounter Summary ---
Demographics + + + | Address | [address] | | | [address] | | | [place] [address] | + + + | Home Phone | | + + + | Preferred Language | Unknown | + + + | Marital Status | Unmarried Domestic Partner | + + + | Pentecostal Affiliation | NON | + + + | Race | White | + + + | Ethnic Group | Not or | + + + Author + + + | Author | [facility] | + + + | Organization | [facility] [facility] | + + + | Address | Unknown | + + + | Phone | Unavailable | + + + Support + + +---------+ + | Name | Relationship | Address | Phone | + + +---------+ + | Roque Headings | ECON | Unknown | | + + +---------+ + Care Team Providers + +------+ + | Care Cardiac Rehabilitation Program Director Name | Role | Phone | [...] | | | | Center Admitting | [place], [place] | [place] | | | | Desk Located on the | [address] | REPAIR AND | | | | 4th floor [address] | [phone] | [address] | | | | [address] [place], | | | | | | [place] [address] | | | +--------+---------+ + + + [...] | + + + +---------+--------+ + | Rock-3 Fatty | Take by mouth once | [...]
--- OUTSIDE RECORDS SUMMARY | ~2018-06-28 | XMS | Clinical Summary ---
Demographics + + + | Address | [address] | | | [address] | | | [place] [address] | + + + | Home Phone [...] Team Providers + +------+ + | Care Instructional Writer Name | Role | Phone | + +------+ + | No Pcp Per Patient | PP | Unavailable | + +------+ + Source Comments SALLIE is fully live on both [facility] Ambulatory and [facility] InPatient.[facility] Allergies + + + + + [...] | | + + + +---------+------+------+-------+ | [place]-3 Fatty | Take by mouth once | [...] | + +--------+ +--------+ + +------+ | [facility] | PHP | [phone] | 07/14/19 | [phone] | [address] | PPO | | | [address] | | 12-Pre | [address] | | | | [address] | | sent | | [place], | | | | [place] | | | | [place] [address] | | + +--------+ +--------+ + +------+ [...] | | | 0 (Home) | [place] [address] | + +--------+ +--------+ + +
--- OUTSIDE RECORDS SUMMARY | ~2018-06-28 | XMS | Encounter Summary ---
Demographics + + + | Address | [address] | | | [address] | | | [place] [address] | + + + | Home Phone | | + + + | Preferred Language | Unknown | + + + | Marital Status | Unmarried Domestic Partner | + + + | Voodoo Affiliation | NON | + + + | Race | White | + + + | Ethnic Group | Not or | + + + Author + + + | Author | [facility] [employer] [facility] | + + + | Organization | [facility] [employer] [facility] | + + + | Address | Unknown | + + + | Phone | Unavailable | + + + Support + + +---------+ + | Name | Relationship | Address | Phone | + + +---------+ + | Roque Headings | ECON | Unknown | | + + +---------+ + Care Team Providers + +------+ + | Care Capital Project Engineer Name | Role | Phone | [...] | | | 2014 | on | [facility] [address] | [address] | | | | | [address] | [facility] | | | | | [address] | [place], [place] | | | | | [place], [place] | [address] | | | | | [address] | [phone] | | | | | [phone] | | | +--------+ + + + [...]
--- OUTSIDE RECORDS SUMMARY | ~2018-06-28 | XMS | Encounter Summary ---
Demographics + + + | Address | [address] | | | [address] | | | [place] [address] | + + + | Home Phone | | + + + | Preferred Language | Unknown | + + + | Marital Status | Unmarried Domestic Partner | + + + | Mormon Affiliation | NON | + + + | Race | White | + + + | Ethnic Group | Not or | + + + Author + + + | Author | [facility] | + + + | Organization | [facility] | + + + | Address | Unknown | + + + | Phone | Unavailable | + + + Support + + +---------+ + | Name | Relationship | Address | Phone | + + +---------+ + | Roque Headings | ECON | Unknown | | + + +---------+ + Care Team Providers + +------+ + | Care Database Administration Project Manager Name | Role | Phone | [...] | | cartilage | Provider Per | [address] | | | | | disorder, | Patient NO | [address] | | | | | forearm | REFERRING | [place] Roa | | | | | Procedures | PROVIDER PER | [place] | | | | | REQUEST TO | [place] | [address] | | | | | SURGERY | | Phone: | | | | | CARE TRANSITION MGR | | [phone] | | | | | VA WRIST | | Fax: | | | | | ARTHROSCOP,E | | [phone] | | | | | XCIS TRIANG [...] | pain post | Provider Per | [address] | | | | | spiral fx sx | Patient NO | [address] Crawford | | | | | | REFERRING | Orion Roa | | | | | | PROVIDER PER | [place] | | | | | | [place] | [address] | | | | | | | Phone: | | | | | | | [phone] | | | | | | | Fax: | | | | | | | [phone] | +--------+--------+ + + + + Encounter Details +--------+---------+ + + + | Date | Type | Department | Care Team | Description | +--------+---------+ + + + | 12/30/ | Office | Orthopaedics at | Christopher Benitez, | Disorder of ligament | | 2013 | Visit | [facility] [address] | [address] [facility] | of left wrist | | | | [address] | [address] | (Primary Dx) | | | | [facility] [address] | [place], [place] | | | | | [place], [place] | [address] | | | | | [address] | [phone] | | | | | [phone] | | | +--------+---------+ + + + [...] on the dorsum of her wrist. 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 We [...]
--- OUTSIDE RECORDS SUMMARY | ~2018-06-28 | XMS | Encounter Summary ---
Demographics + + + | Address | [address] | | | [address] | | | [place] [address] | + + + | Home Phone | | + + + | Preferred Language | Unknown | + + + | Marital Status | Unmarried Domestic Partner | + + + | Evangelical Affiliation | NON | + + + | Race | White | + + + | Ethnic Group | Not or | + + + Author + + + | Author | [facility] | + + + | Organization | [facility] | + + + | Address | Unknown | + + + | Phone | Unavailable | + + + Support + + +---------+ + | Name | Relationship | Address | Phone | + + +---------+ + | Roque Headings | ECON | Unknown | | + + +---------+ + Care Team Providers + +------+ + | Care Corporate Legal Manager Name | Role | Phone | [...] (triangular | | 2015 | Visit | [facility] [address] | INFORMATION TECHNOLOGY ACCOUNT MANAGER [address] | fibrocartilage | | | | [address] | [address], [address] | complex) injury, | | | | [address] | [place], [place] | left (Primary Dx) | | | | [place], [place] | [address] | | | | | [address] | [phone] | | | | | [phone] | | | +--------+---------+ + + + [...] Charlotte Jaime FNP - 03/20/2014 4:13 PM [facility] Orthopaedic Trauma Clinic Date of Surgery: 02/13/2014 [...] UE as scheduled [facility] [place] [address] [facility] [address] [place] [address] No orders of the defined types [...]
--- OUTSIDE RECORDS SUMMARY | ~2018-06-28 | XMS | Encounter Summary ---
Demographics + + + | Address | [address] | | | [address] | | | [place] [address] | + + + | Home Phone [...] + + | Author | [facility] | + + + | Organization | [facility] | + + + | Address | Unknown | + + + | Phone | Unavailable | + + + Support + + +---------+ + | Name | Relationship | Address | Phone | + + +---------+ + | Roque Headings | ECON | Unknown | | + + +---------+ + Care Team Providers + +------+ + | Care Manager Costing Name | Role | Phone | + +------+ + | No Pcp Per Patient | PCP | Unavailable | + +------+ + Encounter Details +--------+ + + + + | Date | Type | Department | Care Team | Description | +--------+ + + + + | 02/13/ | Pharmacy | [facility] | | | | 2014 | Visit | [facility] | | | | | | [address] | | | | | | [place], [place] | | | | | | [address] | | | | | | [phone] | | | +--------+ + + + [...]
--- OUTSIDE RECORDS SUMMARY | ~2018-06-28 | XMS | Encounter Summary ---
Demographics + + + | Address | [address] | | | [address] | | | [place] [address] | + + + | Home Phone | | + + + | Preferred Language | Unknown | + + + | Marital Status | Unmarried Domestic Partner | + + + | Uatsdin Affiliation | NON | + + + | Race | White | + + + | Ethnic Group | Not or | + + + Author + + + | Author | [facility] [employer] [facility] | + + + | Organization | [facility] [employer] [facility] [...] Team Providers + +------+ + | Care Senior Java Software Engineer Name | Role | Phone | [...] | | | | | Procedures | [facility] | [facility] | | | | | MRI WRIST | Rd | Mailcode: | | | | | LEFT WO | [facility] [place] | [address] | | | | | CONTRAST | [address] | [place] | | | | | | Phone: | Research | | | | | | [phone] | Center | | | | | | Fax: | [place], [place] | | | | | | [phone] | [address] | | | | | | | Phone: | | | | | | | [phone] | | | | | | | Fax: | | | | | | | [phone] | +--------+--------+ + + + + Reason [...] | | | | | Procedures | [facility] | [facility] | | | | | MRI WRIST | Rd | Mailcode: | | | | | LEFT WO | [place] | [address] | | | | | CONTRAST | [address] | [place] | | | | | | Phone: | Research | | | | | | [phone] | Center | | | | | | Fax: | [place], [place] | | | | | | [phone] | [address] | | | | | | | Phone: | | | | | | | [phone] | | | | | | | Fax: | | | | | | | [phone] | +--------+--------+ + + + + Encounter Details +--------+ + + + + | Date | Type | Department | Care Team | Description | +--------+ + + + + | 11/11/ | Hospital | Diagnostic Imaging | | | | 2013 | Encounter | Services at [facility] | | | | | | [address] [facility] | | | | | | [facility] | | | | | | Mailcode: [address] | | | | | | [facility] | | | | | | [place], [place] | | | | | | [address] | | | | | | [phone] | | | +--------+ + + + [...]
--- OUTSIDE RECORDS SUMMARY | ~2018-06-28 | XMS | Encounter Summary ---
Demographics + + + | Address | [address] | | | [address] | | | [place] [address] | + + + | Home Phone [...] + | Author | [facility] | + + + | Organization | [facility] | + + + | Address | Unknown | + + + | Phone | Unavailable | + + + Support + + +---------+ + | Name | Relationship | Address | Phone | + + +---------+ + | Roque Headings | ECON | Unknown | | + + +---------+ + Care Team Providers + +------+ + | Care Furnace Fitter Name | Role | Phone | + [...] | | | 2014 | Event | [facility] | MD | | | | | and Healing Surgery | | | | | | Center Admitting | | | | | | Desk Located on the | | | | | | 4th floor [address] | | | | | | [address] [place], | | | | | | [place] [address] | | | +--------+ + + + [...]
--- OUTSIDE RECORDS SUMMARY | ~2018-06-28 | XMS | Encounter Summary ---
Demographics + + + | Address | [address] | | | [address] | | | [place] [address] | + + + | Home Phone [...] Author | [facility] [employer] [facility] | + + + | Organization | [facility] [employer] [facility] | [...] Team Providers + +------+ + | Care Neonatologist Name | Role | Phone | + [...] | | | | | complication | [address] | [address] | | | | | s due to | Ave | [address] | | | | | other | [place], [place] | [place], | | | | | internal | [address] | [place] | | | | | orthopedic | Phone: | [address] | | | | | device, | [phone] | Phone: | | | | | implant, and | Fax: | [phone] | | | | | graft | [phone] | Fax: | | | | | Procedures | | [phone] | | | | | REQUEST TO | | | | | | | SURGERY | | | | | | | ENVIRONMENTAL RESTORATION PLANNER | | | | | | | MS REM | | | | | | | SUTURES W | | | | | | | ANESTH SAME | | | | | | | SURGEON MS | | | | | | | [...] | | REQUEST TO | PT | [address] | | | | | SURGERY | | Phone: | | | | | ENVIRONMENTAL RESTORATION PLANNER | | [phone] | | | | | MS WRIST | | Fax: | | | | | ARTHROSCOP,E | | [phone] | | | | | XCIS TRIANG [...] suture, | | 2015 | Visit | [facility] [address] | [address] | subsequent encounter | | | | [address] | [place], [place] | (Primary Dx) | | | | [address] | [address] | | | | | [place] | [phone] | | | | | [address] | | | | | | [phone] | | | +--------+---------+ + + + [...]
--- OUTSIDE RECORDS SUMMARY | ~2018-06-28 | XMS | Encounter Summary ---
Demographics + + + | Address | [address] | | | [address] | | | [place] [address] | + + + | Home Phone [...] | Author | [facility] [employer] [facility] | + + + | Organization | [facility] [employer] [facility] | + + + | Address | Unknown | + + + | Phone | Unavailable | + + + Support + + +---------+ + | Name | Relationship | Address | Phone | + + +---------+ + | Roque Headings | ECON | Unknown | | + + +---------+ + Care Team Providers + +------+ + | Care Drying Room Attendant Name | Role | Phone [...] + + + + | 02/16/ | Telephone | Orthopaedics at | Christopher Benitez, | Other | | 2015 | | [address] [facility] [address] | [address] | | | | | [address] | [address] | | | | | [address] | [facility] [place] | | | | | [place], [place] | [address] | | | | | [address] | [phone] | | | | | [phone] | | | +--------+ + + + [...]
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
--- OUTSIDE RECORDS SUMMARY | ~2018-06-28 | XMS | Encounter Summary ---
Demographics + + + | Address | [address] | | | [address] | | | [place] [address] | + + + | Home Phone | | + + + | Preferred Language | Unknown | + + + | Marital Status | Unmarried Domestic Partner | + + + | Scientology Affiliation | NON | + + + | Race | White | + + + | Ethnic Group | Not or | + + + Author + + + | Author | [facility] [employer] [facility] | + + + | Organization | [facility] [employer] [facility] | + + + | Address | Unknown | + + + | Phone | Unavailable | + + + Support + + +---------+ + | Name | Relationship | Address | Phone | + + +---------+ + | Roque Headings | ECON | Unknown | | + + +---------+ + Care Team Providers + +------+ + | Care Education Program Specialist Name | Role | Phone | [...] | | | [address] | [address] | | | | | [address] | [facility] [place] | | | | | [place], [place] | [address] | | | | | [address] | [phone] | | | | | [phone] | | | +--------+ + + + [...]
--- OUTSIDE RECORDS SUMMARY | ~2018-06-28 | XMS | Encounter Summary ---
Demographics + + + | Address | [address] | | | [address] | | | [place] [address] | + + + | Home Phone | | + + + | Preferred Language | Unknown | + + + | Marital Status | Unmarried Domestic Partner | + + + | Jehovah'S Witness Affiliation | NON | + + + | Race | White | + + + | Ethnic Group | Not or | + + + Author + + + | Author | [facility] [employer] [facility] | + + + | Organization | [facility] [employer] [facility] | + + + | Address | Unknown | + + + | Phone | Unavailable | + + + Support + + +---------+ + | Name | Relationship | Address | Phone | + + +---------+ + | Roque Headings | ECON | Unknown | | + + +---------+ + Care Team Providers + +------+ + | Care Steel Wool Machine Operator Name | Role | Phone [...] | | cartilage | Provider Per | [address] | | | | | disorder, | Patient NO | [address] | | | | | forearm | REFERRING | [place] | | | | | Procedures | PROVIDER PER | [place] | | | | | REQUEST TO | [place] | [address] | | | | | SURGERY | | Phone: | | | | | LOCAL OPERATOR | | [phone] | | | | | [place] WRIST | | Fax: | | | | | ARTHROSCOP,E | | [phone] | | | | | XCIS TRIANG [...] triangular | | 2015 | Visit | [facility] [address] | [address] | fibrocartilage | | | | [address] | [address] | complex of left | | | | [address] | [place], [place] | wrist (Primary Dx) | | | | [place], [place] | [address] | | | | | [address] | [phone] | | | | | [phone] | | | +--------+---------+ + + + [...] care. 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
--- OUTSIDE RECORDS SUMMARY | ~2018-06-28 | XMS | Encounter Summary ---
Demographics + + + | Address | [address] | | | [address] | | | [place] [address] | + + + | Home Phone [...] Author + + + | Author | [facility] [employer] [facility] | + + + | Organization | [facility] [employer] [facility] | + + + | Address | Unknown | + + + | Phone | Unavailable | + + + Support + + +---------+ + | Name | Relationship | Address | Phone | + + +---------+ + | Roque Headings | ECON | Unknown | | + + +---------+ + Care Team Providers + +------+ + | Care Cans Vacuum Tester Name | Role | Phone | + [...] | | | | [address] | [place], [place] | | | | | [place], [place] | [address] | | | | | [address] | [phone] | | | | | [phone] | | | +--------+ + + + [...]
--- OUTSIDE RECORDS SUMMARY | ~2018-06-28 | XMS | Encounter Summary ---
Demographics + + + | Address | [address] | | | [address] | | | [place] [address] | + + + | Home Phone | | + + + | Preferred Language | Unknown | + + + | Marital Status | Unmarried Domestic Partner | + + + | Buddhist Affiliation | NON | + + + | Race | White | + + + | Ethnic Group | Not or | + + + Author + + + | Author | [facility] | + + + | Organization | [facility] | + + + | Address | Unknown | + + + | Phone | Unavailable | + + + Support + + +---------+ + | Name | Relationship | Address | Phone | + + +---------+ + | Roque Headings | ECON | Unknown | | + + +---------+ + Care Team Providers + +------+ + | Care Ecommerce Project Manager Name | Role | Phone [...] | | | 2014 | on | [facility] [address] | [address] | | | | | [address] | [facility] | | | | | [address] | [place], [place] | | | | | [place], [place] | [address] | | | | | [address] | [phone] | | | | | [phone] | | | +--------+ + + + [...]
--- OUTSIDE RECORDS SUMMARY | ~2018-06-28 | XMS | Encounter Summary ---
Demographics + + + | Address | [address] | | | [address] | | | [place] [address] | + + + | Home Phone [...] + | Author | [facility] [employer] [facility] | + + + | Organization | [facility] [employer] [facility] | + + + | Address | Unknown | + + + | Phone | Unavailable | + + + Support + + +---------+ + | Name | Relationship | Address | Phone | + + +---------+ + | Roque Headings | ECON | Unknown | | + + +---------+ + Care Team Providers + +------+ + | Care Game Programer Name | Role | Phone | + +------+ + | No Pcp Per Patient | PCP | Unavailable | + +------+ + Encounter Details +--------+ + + + + | Date | Type | Department | Care Team | Description | +--------+ + + + + | 02/13/ | Pharmacy | [facility] | | | | 2014 | Visit | & [facility] | | | | | | [address] | | | | | | [place], [place] | | | | | | [address] | | | | | | [phone] | | | +--------+ + + + [...]
--- OUTSIDE RECORDS SUMMARY | ~2018-06-28 | XMS | Encounter Summary ---
Demographics + + + | Address | [address] | | | [address] | | | [place] [address] | + + + | Home Phone [...] + | Author | [facility] [facility] | + + + | Organization | [facility] [employer] [facility] | + + + | Address | Unknown | + + + | Phone | Unavailable | + + + Support + + +---------+ + | Name | Relationship | Address | Phone | + + +---------+ + | Roque Headings | ECON | Unknown | | + + +---------+ + Care Team Providers + +------+ + | Care Orthotic Practitioner Name | Role | Phone | + +------+ + | No Pcp Per Patient | PCP | Unavailable | + +------+ + Encounter Details +--------+ + + + + | Date | Type | Department | Care Team | Description | +--------+ + + + + | 10/28/ | Hospital | Radiology/Imaging | | | | 2013 | Encounter | at [facility] | | | | | | [address] | | | | | | [facility] | | | | | | [place] | | | | | | [address] | | | | | | [phone] | | | +--------+ + + + [...] | | + +---------+ + + | [facility] DEPARTMENT OF | | | | | RADIOLOGY | | | | + +---------+ + + documented in this encounter Visit Diagnoses + + | Diagnosis | + + | Hand pain, left Pain in limb | + + documented in this encounter"
--- OUTSIDE RECORDS SUMMARY | ~2018-06-28 | XMS | Encounter Summary ---
Demographics + + + | Address | [address] | | | [address] | | | [place] [address] | + + + | Home Phone [...] + | Author | [facility] | + + + | Organization | [facility] | + + + | Address | Unknown | + + + | Phone | Unavailable | + + + Support + + +---------+ + | Name | Relationship | Address | Phone | + + +---------+ + | Roque Headings | ECON | Unknown | | + + +---------+ + Care Team Providers + +------+ + | Care Sample Builder Name | Role | Phone | + [...] | Visit | Medicine Clinic at | EDUCATION INTERN [address] | examination (Primary | | | | [facility] 4th Floor [address] [place], [place] | Dx); 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 cogeneration operator at [phone] and ask to be transferred to their [...] of your procedure. Surgery Check in Locations [facility] Day Stay Center for Health and [...] twice per day-she lifts weights and does Cannae as well. Tolerates regular exercise. She is [...] below no dialysis Other : no no PEST TECHNICIAN Endo: Within Defined Limits except as noted [...] further investigation and manageme nt. A. Acute [place] within 7 days: no B. Unstable angina/Recent [place] (7- 30 days): no C. Decompensated CHF: [...] no Rate of cardiac , non fatal [place], non fatal cardiac arrest (RCRI) 0 risk [...] to this patient's care. LYNN BARRON NP [facility] CL[facility] PREOPERATIVE MEDICINE CLINIC AT [facility] 4TH FLOOR [address] [facility] [address] Part of the time was spent [...]
[2018-06-28] MEDS ORDERED: ADVIL200 MG PO (08:45)
[2018-06-28] MEDS ORDERED: VENTOLIN HFA18 GM INH (08:45)
== END 2018-06-28 08:50 | disposition home or self-care (01) ==
LOC: ED 08:33
DX: R07.9 Chest pain, unspecified (principal)

== ENCOUNTER 2020-09-18 13:12 | Emergency (ER) | payer OTHER ==
[~2020-09-18] VITALS: Ht 177.8 cm; Wt 83.9 kg
[~2020-09-18 13:12] MED LIST: ADVIL200 MG PO; VENTOLIN HFA18 GM INH
[2020-09-18] MEDS ORDERED: PREDNISONE20 MG PO (15:08)
[2020-09-18] MEDS ORDERED: HYDROCODON-ACE1 EA11 PO (15:08)
== END 2020-09-18 15:35 | disposition home or self-care (01) ==
LOC: ED 13:12
DX: J02.9 Acute pharyngitis, unspecified (principal); Z87.891 Personal history of nicotine dependence; Z88.2 Allergy status to sulfonamides
CPT/HCPCS: 99282; A9270; J7512

== ENCOUNTER 2021-07-21 06:58 | Day surgery (SDC) | payer OTHER ==
[~2021-07-21] VITALS: Ht 177.8 cm; Wt 79.5 kg
--- NOTE | ~2021-07-21 | OR ---
[facility] [address], [place] [address] Draft DATE OF OPERATION: 07/21/2021 SURGEON: Sam Melendez DO PREOPERATIVE DIAGNOSES: 1. Abnormal uterine bleeding. 2. Adenomyosis. 3. Dysmenorrhea. 4. Endometriosis. POSTOPERATIVE DIAGNOSES: 1. Abnormal uterine bleeding. 2. Adenomyosis. 3. Dysmenorrhea. 4. Endometriosis. PROCEDURES PERFORMED: 1. Total laparoscopic hysterectomy. 2. Bilateral salpingectomy. 3. Cystoscopy. ORE PUNCHER: Cj Arizmendi MD ANESTHESIA: General. ESTIMATED BLOOD LOSS: 10 mL. SPECIMEN: Uterus, bilateral fallopian tubes, and cervix. DRAINS: Hernandez to dependent drainage. FINDINGS: Normal external genitalia with normal clitoris, urethral meatus bilateral [place]'s, and Bartholin glands. Normal appearing vagina and cervix. On laparoscopy, uterine perforation with uterine manipulator in the midline and low without visceral injury PATIENT NAME: MEGAN MOSQUEDA OPERATIVE REPORT DATE OF : 81 REPORT #: [id number] PHYSICIAN: SAM MELENDEZ DO PCP: ESTELA LEON MD REPORT IS CONFIDENTIAL AND NOT TO BE RELEASED WITHOUT AUTHORIZATION [facility] [address] [place] [id number] Draft otherwise. Normal tubes and ovaries bilaterally. There is a deep infiltrating endometriosis infiltrating the pararectal tissue just right of the midline. COMPLICATIONS: None. INDICATIONS: Ms. Mosqueda is a very pleasant 35-year-old G0, P0 female with a long history of very heavy menstrual bleeding with clots and accidents, who presented for total laparoscopic hysterectomy, bilateral salpingectomy, and cystoscopy. Ultrasound demonstrated thickened endometrium and in office hysteroscopy was performed with pathology demonstrating adenomyosis. Risks, benefits, and alternatives were discussed in detail with the patient. The patient understands and wished to proceed with procedure. PROCEDURE IN DETAIL: The patient was taken to the operating room where a time-out was performed to confirm correct patient and correct procedure. General anesthesia was adequately established. The patient was prepped and draped in the dorsal lithotomy position with feet in Yellofin stirrups. ICPs were on running and no preoperative heparin was indicated. A weighted speculum was placed in vagina and the anterior lip of the cervix was grasped with an Allis clamp. A Hernandez catheter was inserted. The cervix was gently dilated using Hegar dilators and a VCare uterine manipulator was placed easily. The surgeon's gloves were changed and attention was turned to the abdomen. A curvilinear incision was made just inferior to the umbilicus after infiltration with 0.25% Marcaine with epinephrine. The fascia was grasped with hemostats, elevated and entered sharply. Stay stitch with 0 Vicryl was placed in the inferior and superior edges of the fascial incision and the peritoneum was entered bluntly. A Sen operative port was placed. Pneumoperitoneum was easily established. Survey of the abdomen and pelvis was performed demonstrating a low posterior perforation of the uterine corpus with the uterine manipulator. The balloon was taken down and the tip of the uterine manipulator withdrawn and redirected into the uterine fundus without difficulty. Careful examination of the pelvis demonstrated no injury to viscera and bleeding was non-existent. A 5 mm assist port was placed in the left lower quadrant under direct visualization without any difficulty and an 8 mm expanding port was placed in the right lower quadrant under direct visualization without complication. The left fallopian tube was grasped, elevated, and dissected along the mesosalpinx using the LigaSure device with excellent hemostasis. The tube was divided at the cornu and delivered through the operative port. The left utero-ovarian ligament was fulgurated and divided with excellent hemostasis. The round ligament was then fulgurated, divided with good hemostasis and the leaves of the broad ligament were divided first the anterior leaf from the midportion of the round ligament to the anterior edge of the vaginal cup and the posterior leaf from the round ligament to the uterosacral ligament and across the PATIENT NAME: MEGAN MOSQUEDA OPERATIVE REPORT DATE OF : 81 REPORT #: [id number] PHYSICIAN: SAM MELENDEZ DO PCP: ESTELA LEON MD REPORT IS CONFIDENTIAL AND NOT TO BE RELEASED WITHOUT AUTHORIZATION [facility] [address], [place] [address] Draft posterior edge of the vaginal cup. The leaves of the broad ligament were pushed well below the vaginal cup, exposing the uterine vasculature. This was fulgurated and divided with excellent hemostasis. The process was repeated on the right without difficulty including division of the mesosalpinx and excision of the right fallopian tube. The right utero-ovarian ligament, the round ligament, and the leaves of the broad ligament dissected in the same manner. The right uterine vasculature was identified, fulgurated, and divided with excellent hemostasis. Colpotomy was then performed using Sonicision device. The uterus and cervix were delivered through the vagina and sent to Pathology for further evaluation. The vagina was packed with a wet lap inside of a glove in order to maintain pneumoperitoneum. A deep infiltrating lesion of endometriosis with classical powder burn appearance was noted inferior to the right uterosacral ligament in the pararectal tissue. This was evaluated closer to see if it would be able to be easily excised. The endometrial lesion was grasped with [place] graspers and elevated. This appears to be very deep infiltrating with close continuity to the rectum. It was decided that this was beyond the ability of the surgical team and facilities and had significant risks that were not previously discussed with the patient and decision was made to not attempt excision of this deep infiltrating endometrium. If this continues to be symptomatic, the patient would be sent to a specialist for further evaluation and management. Attention was then turned to the colpotomy closure. The right uterosacral ligament was grasped with a laparoscopic grasper and the colpotomy was reapproximated using V-Loc suture with an Endostitch device with careful attention to incorporate the uterosacral ligaments bilaterally as well as the vaginal epithelium with each bite. This was closed in a running nonlocked manner in a standard fashion without difficulty with excellent apical support and hemostasis. The pelvis was irrigated and found to be hemostatic. The pneumoperitoneum was reduced. Trocar sites removed and periumbilical fascia reapproximated using 0 Vicryl in a running nonlocked manner. Skin was reapproximated using 4-0 Monocryl in a subcuticular stitch with excellent hemostasis and cosmesis. Attention was then turned to cystoscopy. The Hernandez catheter was removed and a 70-degree cystoscope was placed in the urethral meatus and advanced under direct visualization to the bladder. Normal bladder dome and bilateral ureteral jets were appreciated. The bladder was drained. Hernandez catheter was reinserted. The patient was taken the PACU in good and stable condition. Sponge, needle, and instrument count was correct x2 at the end the procedure. Dr. Arizmendi was present and participated in all portions of the procedure. Sam Melendez, DO PATIENT NAME: MEGAN MOSQUEDA OPERATIVE REPORT DATE OF : [birth year] REPORT #: [id number] PHYSICIAN: SAM MELENDEZ DO PCP: ESTELA LEON MD REPORT IS CONFIDENTIAL AND NOT TO BE RELEASED WITHOUT AUTHORIZATION [facility] [address] [facility] [place] [address] Draft TAMI/DONAVAN /[id number] Copies: ~ PATIENT NAME: MEGAN MOSQUEDA OPERATIVE REPORT DATE OF : 81 REPORT #: [id number] PHYSICIAN: SAM MELENDEZ DO PCP: ESTELA LEON MD REPORT IS CONFIDENTIAL AND NOT TO BE RELEASED WITHOUT AUTHORIZATION
[~2021-07-21 06:58] MED LIST changes: +FISH OIL 1,0001 EACH PO; +HYDROCODON-ACE1 EA11 PO; +MULTI VITAMIN1 EACH PO; +PREDNISONE20 MG PO; +PRISTIQ ER25 MG PO
--- NOTE | 2021-07-21 10:46 | NUR ---
07/21/21 Jac6 Zakiya Shane 1040- PT ARRIVES TO PACU AWAKE AND TALKING. PT REPORTING PAIN A 6/10 IN HER ABD. 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 PT SHIVERING. PT PROVIDED WARM BLANKETS. RESP EVEN AND UNLABORED. OXYGEN SAT HIGH 90'S ON 6L VIA MASK. 1043- PT'S SHIVERING HAS SUBSIDED. PT REPORTS HER PAIN IS IMPROVING.
--- NOTE | 2021-07-21 11:35 | NUR ---
1135-PATIENT BACK TO ROOM FROM PACU ON RA. RECEIVED REPORT FROM DIANNE DINERO. IAN IS DROWSY. RESP EVEN AND UNLABORED. RATES PAIN 4/10, DENIES NAUSEA. DRESSINGS ARE CLEAN, DRY, AND INTACT. MCCONNELL CATH IN PLACE WITH MINIMAL YELLOW URINE NOTED. PROVIDED PATIENT WITH CRACKERS AND WATER. NAINA HUGGER ON. AT BEDSIDE. CALL LIGHT WITHIN REACH. 1150-MCCONNELL CATH REMOVED AND WNL. PATIENT TOLERATED WELL. SMALL AMOUNT OF YELLOW URNIE. 1152-PAIN MEDICATION GIVEN PER EMAR.
--- NOTE | 2021-07-21 12:56 | NUR ---
PATIENT REPORTS PAIN HAS DECREASED TO A 3/10 ON PAIN SCALE, PATIENT THEN UP TO BATHROOM VOIDED 150 ML OF NEON YELLOW URINE. PATIENT BACK TO BED, REPORTS TOLERATED WELL. DRESSING TO UNBILICAL HAS SMALL AMOUNT OF DRAINAGE. PATIENT REPORTS THAT "MY THROAT IS KILLING ME" NO OTHER NEEDS AT THIS TIME.
--- NOTE | 2021-07-21 13:29 | NUR ---
1310-PROVIDED DISCHARGE INSTRUCTIONS FOR PATIENT AND HER . ALL QUESTIONS ANSWERED. RATES PAIN 3/10. PATIENT AMBULATES TO WHEELCHAIR. GAIT STEADY AND TOLERATED WELL. WHEELCHAIR RIDE PROVIDED TO FRONT OF OFFICE WHERE WAS WAITING WITH THE CAR.
== END 2021-07-21 13:10 | disposition home or self-care (01) ==
LOC: OPS 06:58 → DS 06:58 → OPS 09:00 → DS 09:30 → OPS 09:30
PROVIDERS: ATTEND Obstetrics & Gynecology
PROC: 0UT94ZZ Resection of Uterus, Percutaneous Endoscopic Approach (ICD-10-PCS; principal; 2021-07-21 09:00)
PROC: 0UT74ZZ Resection of Bilateral Fallopian Tubes, Percutaneous Endoscopic Approach (ICD-10-PCS; 2021-07-21 09:00)
DX: N80.0 Endometriosis of uterus (principal); N94.6 Dysmenorrhea, unspecified; D25.9 Leiomyoma of uterus, unspecified; N83.8 Other noninflammatory disorders of ovary, fallopian tube and broad ligament; J45.998 Other asthma; Z88.2 Allergy status to sulfonamides; Z87.891 Personal history of nicotine dependence
CPT/HCPCS: 00840; J0131; J0690; J1100; J1885; J2001; J2250; J2405; J2704; J3010; J7121

== ENCOUNTER 2022-01-06 00:21 | Emergency (ER) | payer OTHER ==
[~2022-01-06] VITALS: Ht 177.8 cm; Wt 79.4 kg
== END 2022-01-06 02:27 | disposition home or self-care (01) ==
LOC: ED 00:21
DX: J10.1 Influenza due to other identified influenza virus with other respiratory manifestations (principal); Z20.822 Contact with and (suspected) exposure to COVID-19; Z87.891 Personal history of nicotine dependence; Z88.2 Allergy status to sulfonamides; Z79.899 Other long term (current) drug therapy
CPT/HCPCS: 71045; 87502; 94640; 94664; 99284; A9270; C9803; U0003

== ENCOUNTER 2022-11-20 06:40 | Emergency (ER) | payer OTHER ==
[~2022-11-20] VITALS: Ht 177.8 cm; Wt 96.0 kg
[2022-11-20] MEDS ORDERED: FLUOXETINE HCL20 MG PO (06:48)
[2022-11-20] MEDS ORDERED: OMEPRAZOLE20 MG PO (06:48)
[2022-11-20 06:58] LABS: BASOPHILS 1.2 % (0-2); EOSINOPHILS 0.6 % (0-6); HEMATOCRIT 42.5 % (35.0-50.0); HEMOGLOBIN 14.2 g/dL (12.0-18.0); LYMPHOCYTES 50.2 % (24-44); MCH 31.2 (27-36); MCHC 33.4 g/dl (30-36); MCV 93.6 fl (81-99); MONOCYTES 8.8 % (0-12); NEUTROPHILS 39.2 % (39-80); PLATELET COUNT 273 K/uL (140-440); RBC 4.55 M/ul (4.3-5.7)
[2022-11-20 07:16] LABS: ALBUMIN 3.8 g/dL (3.4-5.0); ALBUMIN/GLOBULIN RATIO 1.06 (1.1-2.4); ALKALINE PHOSPHATASE 60 U/L (46-116); ALT (SGPT) 82 U/L (14-59); ANION GAP 14.4 (7-21); AST (SGOT) 49 U/L (15-37); BILIRUBIN, TOTAL 0.8 ng/dL (0.2-1.0); BUN/CREATININE RATIO 11.11 (6.0-28.6); CALCIUM 8.2 mg/dL (8.5-10.1); CARBON DIOXIDE 26 mmol/L (21-32); CHLORIDE 101 mmol/L (98-107); CREATININE, SERUM 0.72 mg/dL (0.55-1.02); GLOMERULAR FILTRATION RATE,EST 109 mL/min (>60); MAGNESIUM 1.8 mg/dL (1.8-2.4); POTASSIUM 3.4 mmol/L (3.5-5.1); PROTEIN, TOTAL 7.4 g/dL (6.4-8.2); UREA NITROGEN 8 mg/dL (7-18)
[2022-11-20 07:36] LABS: INFLUENZA B NAA NEGATIVE (NEGATIVE); RESPIRATORY SYNCYTIAL VIR NAA NEGATIVE (NEGATIVE)
[2022-11-20 08:45] VITALS: BP 137/90
--- NOTE | 2022-11-20 17:40 | EKG ---
[facility] [address] [facility] [place], [place] [address] Signed Sinus tachycardia Otherwise normal ECG No previous ECGs available Confirmed by PENNY ROLLE MD ([id number]) on 11/20/2022 5:40:08 PM Electronically Signed By: PENNY ROLLE 11/20/22 1740 PATIENT NAME: MEGAN SANCHEZ Electrocardiogram DATE OF : 81 PHYSICIAN: PENNY ROLLE REPORT #: [id number] REPORT IS CONFIDENTIAL AND NOT TO BE RELEASED WITHOUT AUTHORIZATION
== END 2022-11-20 08:45 | disposition home or self-care (01) ==
LOC: ED 06:40
PROVIDERS: Family Medicine
DX: F41.9 Anxiety disorder, unspecified (principal); F32.A Depression, unspecified; R03.0 Elevated blood-pressure reading, without diagnosis of hypertension; Z87.891 Personal history of nicotine dependence; Z88.2 Allergy status to sulfonamides; Z20.822 Contact with and (suspected) exposure to COVID-19
CPT/HCPCS: 36415; 71045; 80053; 83735; 84484; 85025; 87502; 93005; 93010; J2060; Q0177; U0002

== ENCOUNTER 2023-01-03 15:26 | Emergency (ER) | payer OTHER ==
[~2023-01-03] VITALS: Ht 177.8 cm; Wt 94.8 kg
[~2023-01-03 15:26] MED LIST changes: +FLUOXETINE HCL20 MG PO; +OMEPRAZOLE20 MG PO
[2023-01-03] MEDS ORDERED: POTASSIUM CHLO20 ME1 PO (15:36)
[2023-01-03 16:09] LABS: BASOPHILS 1.1 % (0-2); EOSINOPHILS 0.5 % (0-6); HEMATOCRIT 46.9 % (35.0-50.0); HEMOGLOBIN 16.4 g/dL (12.0-18.0); LYMPHOCYTES 51.3 % (24-44); MCH 32.4 (27-36); MCHC 34.9 g/dl (30-36); MCV 92.7 fl (81-99); MONOCYTES 6.5 % (0-12); NEUTROPHILS 40.6 % (39-80); PLATELET COUNT 264 K/uL (140-440); RBC 5.06 M/ul (4.3-5.7); RDW 13.3 (10.5-15.0)
[2023-01-03 16:44] LABS: ALCOHOL, MEDICAL 318 ng/dL (<3); TSH, 3RD GENERATION 0.864 uIU/mL (0.358-3.740)
[2023-01-03 16:55] LABS: ACETAMINOPHEN 0 ug/mL (10-30); SALICYLATE 3.2 mg/dL (2.8-20.0)
[2023-01-03 22:55] VITALS: BP 126/88
== END 2023-01-03 22:50 | disposition home or self-care (01) ==
LOC: ED 15:26
PROVIDERS: Emergency Medicine
DX: F32.A Depression, unspecified (principal); F10.129 Alcohol abuse with intoxication, unspecified; F43.20 Adjustment disorder, unspecified; J45.909 Unspecified asthma, uncomplicated; Z87.891 Personal history of nicotine dependence; Z88.2 Allergy status to sulfonamides; Z79.899 Other long term (current) drug therapy
CPT/HCPCS: 36415; 80307; 84443; 84703; 85025; 99284; A9270; A9270-GY; G0480